=== PATIENT | female | born 1955 | race Caucasian/White ===

== ENCOUNTER 2021-01-19 08:32 | Inpatient (IN) | payer OTHER, MEDICAID, SELFPAY ==
[2021-01-19] VITALS (10 sets, daily range): BP systolic 78–134; BP diastolic 49–81
[~2021-01-19] VITALS: Ht 175.3 cm; Wt 64.4 kg
[~2021-01-19 08:32] MED LIST: AMLO10TA GT; ASCO500T95 GT; BISA-218 RC; CHOL500014 GT; CRAN500T GT; DOCU-299 GT; GLIM2TAB GT; METF500T GT; METF500T2 GT; MULT-1328 GT; OSC500 GT; SIMV20TA1 GT
--- NOTE | 2021-01-19 08:33 | NUR ---
PT BIBA TO BED 10
--- NOTE | 2021-01-19 08:35 | NUR ---
DR RIVERA AT BEDSIDE FOR EVALUATION
--- NOTE | 2021-01-19 08:39 | NUR ---
65 YO FEMALE BIBA FROM [facility] HOME FOR C/C OF DIARRHEA, VOMITING, HYPOTENSION AND 80% SAT ON ROOM AIR. PTS BASELINE IS GCS OF 9/ A/0 X0. PT ARRIVES TO ER ON 4L NC AT 96%. PT WAS COVID NEGATIVE ON 01/11/21. ON RA, 92%, 95% ON 4L N/C. WHEEZING AUSCULATED BILATERAL THROUGHOUT. NO EDEMA NOTED, <3 SECONDS CAP REFILL. PT HAS COUGH. HYPOACTIVE BOWEL SOUNDS IN ALL 4 QUARDRANTS. BLOOD SUGAR PER MEDIC 148. PT IS IN DIAPER. PT LAYING IN BED WITH EVEN AND UNLABORED RESPIRATIONS. BED IN LOWEST POSITION, BRAKES LOCKED, X1 SIDERAIL UP. MED HX: CEREBRAL PALSY, HTN, DM2, HYPERLIPIDEMIA NKA
[2021-01-19] MEDS ORDERED: VANCOMYCIN 1,000 MG in DEXTROSE 5% 250 ML IV ONE (08:50)
--- NOTE | 2021-01-19 09:07 | NUR ---
RAD AT BEDSIDE
[2021-01-19 09:19] LABS: HEMATOCRIT 36.4 % (36-48); HEMOGLOBIN 12.1 g/dL (12.0-16.0); MEAN CORPUSCULAR HEMOGLOBIN 28 pg (27-31); MEAN CORPUSCULAR HGB CONC 33 g/dL (33-37); MEAN CORPUSCULAR VOLUME 83.9 fL (80-94); PLATELET COUNT (AUTO) 155 K/uL (140-450); RED BLOOD CELL COUNT(AUTO) 4.34 MIL/uL (4.20-5.40); RED CELL DISTRIBUTION WIDTH 14.6 % (11.6-13.7); WHITE BLOOD COUNT (AUTO) 21.5 K/uL (4.8-10.8)
[2021-01-19 09:31] LABS: LYMPHOCYTES % (MANUAL) 4 % (20-46); MONOCYTES % (MANUAL) 6 % (5-12)
[2021-01-19] MEDS ORDERED: cefTRIAXone 1,000 MG VIAL ONE (09:31)
[2021-01-19 09:36] LABS: ALBUMIN 2.8 g/dL (3.4-5.0); ANION GAP 16.5 (8-16); CARBON DIOXIDE 22.5 mmol/L (21-32); CREATININE 1.3 mg/dL (0.6-1.3); TOTAL BILIRUBIN 0.5 mg/dL (0.0-1.0)
--- NOTE | 2021-01-19 09:39 | NUR ---
RT AT BEDSIDE FOR ABG
--- NOTE | 2021-01-19 09:39 | NUR ---
CENTRAL LINE PLACED BY ERMD, CONFIRMED PLACEMENT BY ERMD ULTRASOUND AT BEDSIDE.
[2021-01-19] MEDS ORDERED: ACETAMINOPHEN 650 MG SUPP RC ONE (09:40)
--- NOTE | 2021-01-19 09:42 | NUR ---
EMT AT BEDSIDE FOR EKG
[2021-01-19 09:45] LABS: PROTHROMBIN TIME 11.1 secs (10.8-13.4)
[2021-01-19] MEDS ORDERED: VANCOMYCIN 1,000 MG VIAL ONE (09:47)
[2021-01-19] MEDS ORDERED: INSU100S5 BC (10:04)
[2021-01-19] MEDS ORDERED: MEDI237S4 PO (10:04)
[2021-01-19] MEDS ORDERED: CALC-20 GT (10:04)
--- NOTE | 2021-01-19 10:07 | NUR ---
lactic acid 4.1--critical value received from lab. Dr Morgan made aware
[2021-01-19] MEDS ORDERED: NACL 0.9% 1,000 ML IV STA ×2 (10:08)
[2021-01-19 10:09] LABS: C-REACTIVE PROTEIN QUANT 26.8 mg/dL (0.0-0.9)
--- NOTE | 2021-01-19 10:35 | NUR ---
CT consent obtained and placed in pt chart.
--- NOTE | 2021-01-19 10:39 | NUR ---
RAD AT BEDSIDE
--- NOTE | 2021-01-19 10:44 | NUR ---
PT TAKEN TO CT VIA RAMEZ. RN WITH PT.
--- NOTE | 2021-01-19 11:06 | NUR ---
BACK FROM CT AND CONNECTED TO MONITORS AND PAPA
[2021-01-19] MEDS ORDERED: AZITHROMYCIN 500 MG in DEXTROSE 5% 250 ML IV ONE (11:15)
--- NOTE | 2021-01-19 11:23 | NUR ---
URINE SAMPLE COLLECTED VIA FORD. GIVEN TO JYOTHI FROM LAB
[2021-01-19] MEDS ORDERED: AZITHROMYCIN 500 MG INJ VIAL IV ONE (11:26)
[2021-01-19 11:44] LABS: APPEARANCE,URINE SL CLOUDY (CLEAR); BILIRUBIN,URINE NEGATIVE (NEGATIVE); BLOOD, URINE 3+ (NEGATIVE); COLOR,URINE YELLOW (YELLOW); LEUKOCYTE ESTERASE ,URINE 3+ (NEGATIVE); NITRITE, URINE NEGATIVE (NEGATIVE); UGLUCOSE NEGATIVE (NEGATIVE)
--- NOTE | 2021-01-19 11:57 | NUR ---
ep technologist at pt bedside.
[2021-01-19] MEDS ORDERED: NOREPINEPHRINE 4 MG/4 ML VIAL IV ONE (12:02)
[2021-01-19 12:04] LABS: RBC,URINE 11-20 (MOD) /HPF (0-5); WBC,URINE 20-60 /HPF (0-5)
[2021-01-19] MEDS ORDERED: NOREPINEPHRINE 4 MG in DEXTROSE 5% 250 ML IV ONE (12:05)
--- NOTE | 2021-01-19 12:11 | NUR ---
Gave report to EDI King, transfer of care at this time.
--- NOTE | 2021-01-19 12:33 | NUR ---
Patient will be admitted to care of Mariza Vaca. Admited to ICU. Will go to room 8. Belongings list completed. Report to EDI King.
--- NOTE | 2021-01-19 12:50 | NUR ---
RECEIVED PT FROM VP [employer] [place]. PT IS ALERT AND ORIENTED X 0. PT IS ON 4 L NC, BREATHING EVEN AND UNLABORED, SATURATING 94%. PT IS SR/ST ON THE MONITOR AT THIS TIME. PT HAS ACCESS AT R IJ CENTRAL LINE AND L H 22 G. LEVOPHED IS RUNNING AT 4 MCG/MIN. PT HAS G TUBE IN PLACE. FORD CATHETER IS IN PLACE DRAINING TO GRAVITY. SKIN IS INTACT, SACRAL REDNESS NOTED. OPTIFOAM DRESSING PUT INTO PLACE. TEMPERATURE 97.9 AXILLARY.
[2021-01-19] MEDS: DEXT 5% /NACL 0.9% 1,000 ML IV SCH (13:00)
--- NOTE | 2021-01-19 13:57 | NUR ---
DR. DORAN SEEING PT
--- NOTE | 2021-01-19 14:00 | NUR ---
SPOKE TO ANTONELLA MARCH AND UPDATED ON PT STATUS. PER ANTONELLA, OKAY TO GIVE INFO/CALL FOR INFO FROM HERSELF, KINGA LAGUERRE, AND GUERRERO CASTILLO IF NEEDED. NUMBERS ARE IN CHART. PER ANTONELLA, ALSO OKAY TO CALL KINGA OR ANTONELLA FOR CONSENT.
[2021-01-19] MEDS ORDERED: ONDANSETRON 4 MG/2 ML VIAL IVP PRN (14:05)
--- NOTE | 2021-01-19 16:50 | NUR ---
PT REPOSITIONED OFF LOADED WITH PILLOWS. SKIN WIPED DOWN. VSS NO SIGNS OF RESPIRATORY STRESS NOTED.
[2021-01-19] MEDS ORDERED: NUT TX GLUC INTOLER LAC FR SOY PO SCH (17:00)
[2021-01-19] MEDS ORDERED: NOREPINEPHRINE 4 MG in DEXTROSE 5% 250 ML IV PRN (18:55)
[2021-01-19] MEDS ORDERED: DEXTROSE 50% 50 ML SYR IVP PRN (18:55)
[2021-01-19] MEDS: ALBUTEROL 0.083% 2.5 MG/3 ML NEBU INH SCH (19:00)
[2021-01-19] MEDS: IPRATROPIUM 0.02% 0.5 MG/2.5 ML NEBU INH SCH (19:00)
--- NOTE | 2021-01-19 19:19 | NUR ---
HANDOFF GIVEN TO SUMATRA OPENER RN FOR CONTINUITY OF CARE
--- NOTE | 2021-01-19 19:30 | NUR ---
RECEIVED REPORT AT BEDSIDE FROM RN DAYSHIFT NURSE FOR CONTINUITY OF CARE, PT IN STABLE CONDITION.
--- NOTE | 2021-01-19 19:54 | NUR ---
PT IN BED HOB UP 35%. SHE IS AOX1, AROUSABLE TO NAME AND SHE IS APHASIAC.FLACC-O .SHE HAS A N/C WITH SUPPLEMENTAL 02 AT LITERS. PT HAS SOME SACRAL REDNESS WITH DRY DRESSING INTACT. SHE HAS A R IJ RUNNING LEVOPHED AT 4MCG/MIN. SHE IS ALSO RUNNING D5N/S AT 100MLS/HR. PT ALSO HAS LEFT HAND 22G SALINE LOCKED. V/S FOLLOWS: T 97.9 P 95 R 17 B/P 129/81 02 95%. ALL ORDERED PRECAUTIONS IN PLACE.
[2021-01-19] MEDS: SIMVASTATIN 20 MG TAB GT SCH (20:19)
[2021-01-19] MEDS: metFORMIN 500 MG TAB GT SCH (20:19)
[2021-01-19] MEDS: INSULIN LISPRO SLIDING SCALE 100 UNITS/ML VIAL SUBQ PRN (20:22)
[2021-01-19] MEDS: LORazepam 2 MG/ML VIAL IVP PRN (20:45)
[2021-01-19] MEDS: BLOOD GLUCOSE MONITORING 1 DEV DEV FS SCH (21:00)
[2021-01-19] MEDS ORDERED: NON-FORMULARY ITEM (Metformin HCl* (Glucophage Xr*) 500 MG) GT SCH (21:00)
--- NOTE | 2021-01-19 21:00 | NUR ---
PT SHAKING ARM BACK AND FORTH AND MOVING HEAD BACK AND FORTH, SHE WAS GIVEN IVP ATIVAN FOR AGITATION WILL MONITOR FOR EFFECT. PT ALSO GIVEN GLUCOPHAGE AND ZOCOR VIA G TUBE WHICH WAS FLUSHED PATENT. PT FINGERSTICK IS 228, 4 UNITS OF HUMALOG GIVEN SQ FOR COVERAGE PER S/S. LEVOPHED DECREASED DUE TO INCREASED B/P SBP WAS 147. WILL CONTINUE TO MONITOR PT FOR RELIEF OF AGITATION WELL B/P AND ALL OTHER V/S. PT ALSO HAS FORD CATHETER INTACT AND DRAINING YELLOW URINE. ALL ORDERED PRECAUTIONS IN PLACE.
--- NOTE | 2021-01-19 22:30 | NUR ---
PT IN BED RESTING QUIETLY WITH EYES CLOSED, V/S FOLLOWS: T 98 P 114 R 22 B/P 99/58 02 96% WITH 4.5 LITERS OF N/C. ALL ORDERED PRECAUTIONS IN PLACE.
[2021-01-19] MEDS ORDERED: VANCOMYCIN PER PHARMACY MC PRN (22:50)
[2021-01-19] MEDS ORDERED: VANCOMYCIN 1GM/DEXT 5% PREMIX 200 ML IV SCH (23:00)
--- NOTE | 2021-01-19 23:00 | NUR ---
VANCOMYCIN RECONSTITUTED AND HUNG RUNNING AT 135MLS/HR. WILL MONITOR FOR SIDE EFFECTS.
[2021-01-20] VITALS (23 sets, daily range): BP systolic 98–147; BP diastolic 53–87
[2021-01-20] MEDS: DEXT 5% /NACL 0.9% 1,000 ML IV SCH ×2 (00:08→10:05)
[2021-01-20] MEDS ORDERED: VANCOMYCIN 1,000 MG VIAL ONE (00:17)
[2021-01-20] MEDS ORDERED: PIPERACILLIN/TAZOBACTAM 3.375 GM VIAL IV ONE ×2 (00:18→06:22)
[2021-01-20] MEDS: PIPERACILLIN/TAZOBACTAM 3.375 GM in DEXTROSE 5% 50 ML IV SCH ×5 (00:25→23:14)
--- NOTE | 2021-01-20 00:30 | NUR ---
HAMMAD HUNG AND RUNNING ORDERED. V/S FOLLOWS: T 97.6 P 104 R 21 B/P 104/61 02 93% WITH 4.5 LITER VIA N/C. ALL ORDERED PRECAUTIONS IN PLACE.
--- NOTE | 2021-01-20 01:00 | NUR ---
RT FOR NEB TREATMENT PT PLACED ON 15 LITERS NON REBREATHER.
[2021-01-20] MEDS: IPRATROPIUM 0.02% 0.5 MG/2.5 ML NEBU INH SCH ×4 (01:13→19:00)
[2021-01-20] MEDS: ALBUTEROL 0.083% 2.5 MG/3 ML NEBU INH SCH ×4 (01:14→19:00)
--- NOTE | 2021-01-20 01:25 | NUR ---
RECEIVED PT ON N/C 4L, SPO2 91%. CHANGED TO NONREBREATHER 15L DUE TO DESATURATION.
[2021-01-20] MEDS: LORazepam 2 MG/ML VIAL IVP PRN ×2 (01:47→13:00)
--- NOTE | 2021-01-20 01:52 | NUR ---
PT STARTED TO BECOME AGITATED AGAIN, SHE WAS GIVEN IVP /PRN ATIVAN. WILL MONITOR FOR EFFECT.
--- NOTE | 2021-01-20 04:00 | NUR ---
PT WAS TURNED AND REPOSITIONED IN BED. D5N/S RUNNING AT 100MLS/HR .
--- NOTE | 2021-01-20 05:00 | NUR ---
CRITICAL LAB GRAM POSITIVE RODS IN THE BLOOD. PT IS ON 3 IV ABTS. AWAITING SENSITIVITY
--- NOTE | 2021-01-20 06:00 | NUR ---
HAMMAD HUNG AND RUNNING ORDERED. FINGERSTICK IS 138, NO HUMALOG COVERAGE NEEDED.
[2021-01-20] MEDS: BLOOD GLUCOSE MONITORING 1 DEV DEV FS SCH ×4 (06:24→20:05)
--- NOTE | 2021-01-20 08:03 | NUR ---
PATIENT HAS BEEN SCREENED AND CATEGORIZED HIGH NUTRITION RISK. PATIENT WILL BE SEEN WITHIN 1-2 DAYS OF ADMISSION. 01/20/2021-01/21/[address]
[2021-01-20 08:50] LABS: ANION GAP 15.1 (8-16); CARBON DIOXIDE 18.2 mmol/L (21-32); CREATININE 1.3 mg/dL (0.6-1.3); POTASSIUM 4.3 mmol/L (3.5-5.1)
[2021-01-20] MEDS ORDERED: NON-FORMULARY ITEM (Cholecalciferol (Vitamin D3) (Vitamin D3) 5,000 U) GT SCH (09:00)
[2021-01-20] MEDS ORDERED: NON-FORMULARY ITEM (Multivitamin with Minerals (Multivitamins with Minerals) 1 TAB) GT SCH (09:00)
[2021-01-20] MEDS ORDERED: CRANBERRY FRUIT EXTRACT 500 MG GT SCH (09:00)
[2021-01-20] MEDS ORDERED: AZITHROMYCIN 500 MG in DEXTROSE 5% 250 ML IV SCH (09:00)
[2021-01-20] MEDS: GLIMEPIRIDE 2 MG TAB GT SCH (09:17)
[2021-01-20] MEDS: metFORMIN 500 MG TAB GT SCH ×2 (09:18→20:05)
[2021-01-20] MEDS: MULTIVITAMIN/MINERALS 1 TAB GT SCH (09:19)
[2021-01-20] MEDS: ASCORBIC ACID 500 MG/5 ML ORASYR GT SCH (09:19)
[2021-01-20] MEDS: CALCIUM CARB/VIT-D 500 MG/200 IU 1 TAB GT SCH (09:19)
--- NOTE | 2021-01-20 09:45 | NUR ---
SEEN BY ANDREEA CREWS AT BEDSIDE, CLAUDIA ANTUNEZ FOR ARCH CUSHION SKIVING MACHINE OPERATOR.
--- NOTE | 2021-01-20 10:35 | NUR ---
SEEN BY DR. ANTUNEZ AT BED SIDE , ORDER RECEIVED.
[2021-01-20 11:02] LABS: BASOPHILS % (AUTO) 0.3 % (0.0-2.0); EOSINOPHILS # (AUTO) 0.2 K/uL (0-0.4); HEMATOCRIT 31.4 % (36-48); HEMOGLOBIN 10.2 g/dL (12.0-16.0); LYMPHOCYTES # (AUTO) 0.4 K/uL (2.5-16.5); LYMPHOCYTES % (AUTO) 4.8 % (20.5-51.1); MEAN CORPUSCULAR HEMOGLOBIN 28 pg (27-31); MEAN CORPUSCULAR HGB CONC 33 g/dL (33-37); MEAN CORPUSCULAR VOLUME 84.6 fL (80-94); MONOCYTES # (AUTO) 0.2 K/uL (0.8-1.0); MONOCYTES % (AUTO) 2.6 % (1.7-9.3); NEUTROPHILS # (AUTO) 7.1 K/uL (1.8-7.7); NEUTROPHILS % (AUTO) 89.3 % (42.2-75.2); PLATELET COUNT (AUTO) 107 K/uL (140-450); RED BLOOD CELL COUNT(AUTO) 3.71 MIL/uL (4.20-5.40); RED CELL DISTRIBUTION WIDTH 14.5 % (11.6-13.7); WHITE BLOOD COUNT (AUTO) 7.9 K/uL (4.8-10.8)
[2021-01-20] MEDS: CHOLECALCIFEROL 1,000 IU TAB GT SCH (11:45)
[2021-01-20] MEDS: INSULIN LISPRO SLIDING SCALE 100 UNITS/ML VIAL SUBQ PRN ×2 (11:49→20:06)
--- NOTE | 2021-01-20 11:50 | NUR ---
VITAMIN D ADMIN NOW//PHARM RESTOCKED RIGHT NOW
--- NOTE | 2021-01-20 13:00 | NUR ---
PATIENT TOSSING AROUND IN BED, ATIVAN IVP GIVEN AT THIS TIME. WILL CONTINUE TO MONITOR.
--- NOTE | 2021-01-20 13:59 | NUR ---
01/20/21 RD INITIAL ASSESSMENT COMPLETED PLEASE REFER TO NUTRITION ASSESSMENT UNDER CARE ACTIVITY FOR ESTIMATED NUTRITIONAL NEEDS. RD RECOMMENDATIONS: 1. RECOMMEND VITAL AF 1.2 AT 60 ML/HR. -THIS PROVIDES 1440 ML TOTAL VOLUME 1728 KCAL AND 108 GM OF PROTEIN , WHICH IS ADEQUATE TO MEET 100% OF ESTIMATED KCAL AND PROTEIN NEEDS. 2. CONSIDER FREE WATER FLUSH OF 100 ML Q4H OR PER MD. 3. RD WILL F/U 2-3 DAYS; HIGH RISK. EDMUND THOMAS, RD
--- NOTE | 2021-01-20 14:00 | NUR ---
TURNED PATIENT. TOLERATED WELL. NO DISTRESS NOTED. CONDITION UNCHANGED. WILL CONTINUE TO MONITOR.
--- NOTE | 2021-01-20 16:13 | NUR ---
TURNED PATIENT. NO BM THROUGHOUT SHIFT. WILL CONTINUE TO MONITOR.
--- NOTE | 2021-01-20 17:29 | NUR ---
SCHEDULED MEDICATIONS DUE GIVEN. WILL CONTINUE TO MONITOR.
[2021-01-20] MEDS: VANCOMYCIN 750 MG in DEXTROSE 5% 250 ML IV SCH (18:00)
--- NOTE | 2021-01-20 18:32 | NUR ---
VANCO RANDOM 21.6. VANCO IV SCHEDULED FOR 1800 HELD AT THIS TIME PER PHARMACY PARAMETERS. WILL CONTINUE TO MONITOR.
--- NOTE | 2021-01-20 19:15 | NUR ---
GAVE REPORT TO FORM STRIPPER NURSE FOR CONTINUITY OF CARE. PATIENT REMAINS IN CRITICAL CONDITION.
--- NOTE | 2021-01-20 19:25 | NUR ---
RECIEVED BEDSIDE REPORT FROM DAY SHIFT RN, PT RESTING IN BED LYING SUPINE W/ HOB 30 DEGREES AND BED LOW, ST ON MONITOR, PT ON NRB 15 L/MIN, AFEBRILE, FC IN PLACE DRAINING VIA GRAVITY, GTUBE TO FEEDING ONGOING, ABD SOFT AND NON TENDER, SKIN INTACT WITH SACRAL REDNESS, RIJ TL INFUSING D5 NS, PT SHOWING NO SIGNS OF ACUTE DISTRESS SAFETY MEASURES IN PLACE, WILL CONTINUE WITH CURRENT POC
[2021-01-20] MEDS ORDERED: CRUSHER, PILL MC ONE (20:01)
[2021-01-20] MEDS: SIMVASTATIN 20 MG TAB GT SCH (20:04)
--- NOTE | 2021-01-20 21:10 | NUR ---
ADMINISTERED 2100 MEDICATIONS PER ORDERED, BLOOD GLUCOSE 157, ADMINISTERED 2 UNITS HUMALOG PER PROTOCOL
--- NOTE | 2021-01-20 23:47 | NUR ---
ADMINISTERED 0000H MEDICATION PER ORDERED, PT RESTING IN BED, NO SIGNS OF ACUTE DISTRESS
[2021-01-21] VITALS (28 sets, daily range): BP systolic 99–164; BP diastolic 42–78
[2021-01-21] MEDS: ALBUTEROL 0.083% 2.5 MG/3 ML NEBU INH SCH ×4 (01:00→19:30)
[2021-01-21] MEDS: IPRATROPIUM 0.02% 0.5 MG/2.5 ML NEBU INH SCH ×4 (01:00→19:30)
[2021-01-21] MEDS: PIPERACILLIN/TAZOBACTAM 3.375 GM in DEXTROSE 5% 50 ML IV SCH ×4 (05:17→23:01)
[2021-01-21 05:21] LABS: ANION GAP 15.9 (8-16); CARBON DIOXIDE 23.6 mmol/L (21-32); CREATININE 1.5 mg/dL (0.6-1.3); POTASSIUM 3.5 mmol/L (3.5-5.1)
[2021-01-21 05:31] LABS: HEMOGLOBIN 11.3 g/dL (12.0-16.0); MEAN CORPUSCULAR HEMOGLOBIN 28 pg (27-31); MEAN CORPUSCULAR HGB CONC 32 g/dL (33-37); MEAN CORPUSCULAR VOLUME 85.7 fL (80-94); PLATELET COUNT (AUTO) 101 K/uL (140-450); RED BLOOD CELL COUNT(AUTO) 4.09 MIL/uL (4.20-5.40); RED CELL DISTRIBUTION WIDTH 14.4 % (11.6-13.7); WHITE BLOOD COUNT (AUTO) 7.3 K/uL (4.8-10.8)
[2021-01-21] MEDS: DEXT 5% /NACL 0.9% 1,000 ML IV SCH (05:45)
[2021-01-21 06:19] LABS: BASOPHILS % (MANUAL) 0 % (0-2); EOSINOPHILS % (MANUAL) 0 % (0-4); LYMPHOCYTES % (MANUAL) 3 % (20-46)
[2021-01-21 06:21] LABS: MONOCYTES % (MANUAL) 6 % (5-12)
[2021-01-21] MEDS: BLOOD GLUCOSE MONITORING 1 DEV DEV FS SCH ×4 (06:31→21:01)
[2021-01-21] MEDS: INSULIN LISPRO SLIDING SCALE 100 UNITS/ML VIAL SUBQ PRN ×4 (06:31→21:01)
--- NOTE | 2021-01-21 07:20 | NUR ---
ENDORSED TO DAY SHIFT RN FOR CONTINUITY OF CARE
--- NOTE | 2021-01-21 07:21 | NUR ---
RECEIVED REPORT FROM HAND FRETTED INSTRUMENT MAKER NURSE PATIENT. PATIENT IN CRITICAL CONDITION. WILL CONTINUE TO MONITOR.
--- NOTE | 2021-01-21 08:11 | NUR ---
PT PLACED ON A VAPOTHERM 40L 100% USING A HF NASAL CANULA WITH A COMBINATION OF A NON-REBREATHER ON TOP OF THE NASAL CANULA FOR MAXIMUM OXYGEN DELIVERY. IF PT CONTINUES TO DESATURATE I WILL FOLLOW WITH PHYSICIAN FOR FURTHER ORDERS.
[2021-01-21] MEDS: CALCIUM CARB/VIT-D 500 MG/200 IU 1 TAB GT SCH (09:05)
[2021-01-21] MEDS: metFORMIN 500 MG TAB GT SCH (09:05)
[2021-01-21] MEDS: ASCORBIC ACID 500 MG/5 ML ORASYR GT SCH (09:05)
[2021-01-21] MEDS: CHOLECALCIFEROL 1,000 IU TAB GT SCH (09:05)
[2021-01-21] MEDS: MULTIVITAMIN/MINERALS 1 TAB GT SCH (09:05)
[2021-01-21] MEDS: GLIMEPIRIDE 2 MG TAB GT SCH (09:07)
[2021-01-21] MEDS ORDERED: CLINICAL MONITORING MC PRN (09:35)
--- NOTE | 2021-01-21 10:25 | NUR ---
DR. ANTUNEZ AT BEDSIDE REVIEWING PLAN OF CARE. PER DR. ANTUNEZ, PLACE PATIENT ON BIPAP DUE TO O2 SAT AROUND 84-86% ON NRB 15L/MIN AND HIGH FLOW 100 % FIO2. WILL CONTINUE TO MONITOR.
--- NOTE | 2021-01-21 11:30 | NUR ---
SCHEDULED MEDICATIONS DUE GIVEN. WILL CONTINUE TO MONITOR.
[2021-01-21] MEDS: LORazepam 2 MG/ML VIAL IVP PRN ×2 (11:57→16:07)
[2021-01-21] MEDS: VANCOMYCIN 750 MG in DEXTROSE 5% 250 ML IV SCH (12:00)
--- NOTE | 2021-01-21 12:03 | NUR ---
SCHEDULED MEDICATIONS DUE GIVEN. WILL CONTINUE TO MONITOR.
--- NOTE | 2021-01-21 13:09 | NUR ---
SCHEDULED MEDICATIONS DUE GIVEN. WILL CONTINUE TO MONITOR.
--- NOTE | 2021-01-21 15:30 | NUR ---
CLEANED AND REPOSITIONED PATIENT. PATIENT TOLERATED WELL. WILL CONTINUE TO MONITOR.
[2021-01-21] MEDS: NACL 0.9% 1,000 ML IV SCH (16:22)
--- NOTE | 2021-01-21 17:23 | NUR ---
SCHEDULED MEDICATIONS DUE GIVEN. WILL CONTINUE TO MONITOR.
--- NOTE | 2021-01-21 19:10 | NUR ---
GAVE REPORT TO GAMBRELER NURSE FOR CONTINUITY OF CARE. PATIENT REMAINS IN CRITICAL CONDITION.
--- NOTE | 2021-01-21 19:25 | NUR ---
RECIEVED BEDSIDE REPORT FROM DAY SHIFT RN, PT RESTING IN BED LYING SUPINE W/ HOB 30 DEGREES AND BED LOW, SR ON MONITOR, PT ON BIPAP FIO2 100%, AFEBRILE, FC IN PLACE DRAINING VIA GRAVITY, GTUBE TO FEEDING ONGOING, ABD SOFT AND NON TENDER, SKIN INTACT WITH SACRAL REDNESS, RIJ TL INFUSING NS, PT SHOWING NO SIGNS OF ACUTE DISTRESS SAFETY MEASURES IN PLACE, WILL CONTINUE WITH CURRENT POC
[2021-01-21] MEDS: SIMVASTATIN 20 MG TAB GT SCH (21:01)
--- NOTE | 2021-01-21 21:30 | NUR ---
ADMINISTERED 2100H MEDICATIONS PER ORDERED, BLOOD GLUCOSE 167, ADMINISTERED 2 UNITS HUMALOG PER PROTOCOL
--- NOTE | 2021-01-21 23:29 | NUR ---
ADMINISTERED 0000H MEDICATION PER ORDERED, REPOSITIONED PT, SHOWING NO SIGNS OF ACUTE DISTRESS
[2021-01-22] VITALS (30 sets, daily range): BP systolic 89–176; BP diastolic 45–79
[2021-01-22] MEDS: IPRATROPIUM 0.02% 0.5 MG/2.5 ML NEBU INH SCH ×4 (01:19→19:00)
[2021-01-22] MEDS: ALBUTEROL 0.083% 2.5 MG/3 ML NEBU INH SCH ×4 (01:19→19:00)
--- NOTE | 2021-01-22 02:15 | NUR ---
AM CARE GIVEN, REPOSTIONED PT, PT SHOWING NO SIGNS OF ACUTE DISTRESS
[2021-01-22] MEDS: PIPERACILLIN/TAZOBACTAM 3.375 GM in DEXTROSE 5% 50 ML IV SCH ×4 (05:09→23:31)
--- NOTE | 2021-01-22 05:47 | NUR ---
ADMINISTERED 0600H MEDICATION PER ORDERED
[2021-01-22 06:09] LABS: EOSINOPHILS % (AUTO) 0.4 % (0.0-4.0); HEMATOCRIT 31.6 % (36-48); HEMOGLOBIN 10.3 g/dL (12.0-16.0); LYMPHOCYTES # (AUTO) 0.3 K/uL (2.5-16.5); LYMPHOCYTES % (AUTO) 3.6 % (20.5-51.1); MEAN CORPUSCULAR HEMOGLOBIN 28 pg (27-31); MEAN CORPUSCULAR HGB CONC 33 g/dL (33-37); MEAN CORPUSCULAR VOLUME 84.2 fL (80-94); MONOCYTES # (AUTO) 0.1 K/uL (0.8-1.0); MONOCYTES % (AUTO) 1.5 % (1.7-9.3); NEUTROPHILS # (AUTO) 8.8 K/uL (1.8-7.7); NEUTROPHILS % (AUTO) 94.5 % (42.2-75.2); PLATELET COUNT (AUTO) 96 K/uL (140-450); RED BLOOD CELL COUNT(AUTO) 3.75 MIL/uL (4.20-5.40); RED CELL DISTRIBUTION WIDTH 14.6 % (11.6-13.7); WHITE BLOOD COUNT (AUTO) 9.4 K/uL (4.8-10.8)
[2021-01-22 06:24] LABS: ALBUMIN 1.8 g/dL (3.4-5.0); ANION GAP 15.2 (8-16); CARBON DIOXIDE 24.7 mmol/L (21-32); CREATININE 1.6 mg/dL (0.6-1.3); MAGNESIUM 1.9 mg/dL (1.8-2.4); PHOSPHORUS 1.3 mg/dL (2.5-4.9); TOTAL BILIRUBIN 0.3 mg/dL (0.0-1.0)
[2021-01-22] MEDS: INSULIN LISPRO SLIDING SCALE 100 UNITS/ML VIAL SUBQ PRN ×4 (06:30→21:41)
[2021-01-22] MEDS: BLOOD GLUCOSE MONITORING 1 DEV DEV FS SCH ×4 (06:30→21:37)
--- NOTE | 2021-01-22 06:33 | NUR ---
BLOOD GLUCOSE 172, ADMINISTERED 2 UNITS HUMALOG PER PROTOCOL
[2021-01-22] MEDS: NACL 0.9% 1,000 ML IV SCH (06:36)
[2021-01-22 06:42] LABS: POTASSIUM 2.9 mmol/L (3.5-5.1)
--- NOTE | 2021-01-22 07:07 | NUR ---
ENDORSED T DAY SHIFT RN FOR CONTINUITY OF CARE
[2021-01-22] MEDS ORDERED: POTASSIUM CHLORIDE 10 MEQ TABER PO SCH (07:10)
[2021-01-22] MEDS: NACL 0.45% 1,000 ML IV SCH ×2 (07:10→21:01)
--- NOTE | 2021-01-22 08:08 | NUR ---
UPON INITIAL ASSESSMENT PT IS SUPINE IN BED WITH NO SIGNS OF ACUTE DISTRESS. PT INITIALLY ON 60% FIO2 ON BIPAP, TITRATED DOWN TO 50%. PT IN SINUS RHYTHM IN 80S AND MAPS IN 80S. PT IS WARM TO TOUCH, PULSES REGULAR AND STRONG. PT NOT FOLLOWING COMMANDS AND LETHARGIC ASIDE FROM FROM BASELINE INTELLECTUAL DELAY. MD ROUNDING AT BEDSIDE THIS AM REQUESTING PT TO HAVE TUBE FEEDS HELD 8 HOURS PRIOR TO RENAL STENT PLACEMENT FOR BILATERAL KIDNEY STONES, OTHERWISE NO NEW ORDERS. PLAN TO CONTINUE CURRENT PLAN OF CARE. WILL CONTINUE TO MONITOR AND ASSESS PATIENT.
[2021-01-22] MEDS: ASCORBIC ACID 500 MG/5 ML ORASYR GT SCH (08:21)
[2021-01-22] MEDS: MULTIVITAMIN/MINERALS 1 TAB GT SCH (08:21)
[2021-01-22] MEDS: CALCIUM CARB/VIT-D 500 MG/200 IU 1 TAB GT SCH (08:21)
[2021-01-22] MEDS: CHOLECALCIFEROL 1,000 IU TAB GT SCH (08:22)
[2021-01-22] MEDS: GLIMEPIRIDE 2 MG TAB GT SCH (08:25)
[2021-01-22] MEDS ORDERED: POTASSIUM CHLORIDE 20% 40 MEQ/15 ML UDC ONE (08:29)
[2021-01-22] MEDS: LORazepam 2 MG/ML VIAL IVP PRN ×2 (08:46→18:45)
[2021-01-22] MEDS ORDERED: PROPOFOL 1000 MG/100 ML PREMIX 100 ML IV ONE (09:43)
[2021-01-22] MEDS ORDERED: PROPOFOL 1000 MG/100 ML PREMIX 100 ML IV PRN (09:50)
--- NOTE | 2021-01-22 10:00 | NUR ---
MD NOTIFIED OF PT'S WORK OF BREATHING AT 0915. PT SATURATING IN MID 90S, BUT BREATHING IN 50S. AFTER PRN ATIVAN ADMINISTERED, ABG DRAWN. MD ARRIVED AT BEDSIDE AND NOTED THAT ALTHOUGH ABG WAS STABLE WHEN RESULTED, PT'S WORK OF BREATHING WAS CONCERNING. PT INTUBATED WITH SIZE 7.5 ET TUBE WITHOUT COMPLICATIONS. DURING PROCEDURE, TOTAL OF 20 OF ETOMIDATE AND 30 OF ROCURONIUM GIVEN. PROPOFOL STARTED AT 30 MCG/KG/MIN PER MD. PT APPEARS COMFORTABLE WITH A RASS OF -2 AND SATTING IN MID 90S ON 60% FIO2. BILATERAL LUNG SOUNDS PRESENT POST INTUBATION. WILL CONTINUE TO MONITOR AND ASSESS PATIENT.
[2021-01-22] MEDS: PROPOFOL 1000 MG/100 ML PREMIX 100 ML IV PRN ×5 (11:23→18:11)
--- NOTE | 2021-01-22 11:31 | NUR ---
DC PLANN[age] YRS OLD FEMALE PATEINT WAS ADMITTED FROM [facility], WITH A DX OF SEPSIS AND RESP FAILURE. PT HAS A HX OF CEREBRAL PALSY, MENTALLY CHALLENGE G-TUBE AND DM. PT'S SISTER QUEENIE MULTANI IS A DECISION MAKER. PT IS ON BIPAP FI02 60% SATING 91%. CONSULTED WITH KIRILL, BROOKS, AND UROLOGIST. DC PLAN PER PT RESPOND FOR THE TREATMENT. CM TO FOLLOW. Addendum: 01/29/21 at 1157 by Jenniffer Fernandez RN DC PLANNING: SEEN BY KIRILL, BROOKS, NEPHRO, AND UROLOGIST. PT IS STILL INTUBATED ,NOT RESPONDING, CPAP TRIAL TODAY CM TO FOLLOW Addendum: 01/30/21 at 1346 by Jenniffer Fernandez RN DC PLANNING: PT HAS LTAC ORDER CALLED FAMILY PT'S SISTER [phone] SPOKE WITH QUEENIE MULTANI EXPLAINED THE NEEDS FOR LTAC. PER QUEENIE AGREED AND EITHER [facility] [place] OR [facility] WILL BE OK . I INFORMED HER CHARO FROM [facility] WILL CALL HER FOR PERMISSION. [facility] TO FOLLOW Addendum: 02/01/21 at 1052 by Lorraine Forrest CM DC WATER QUALITY ASSISTANT: SPOKE TO KINGA LAGUERRE [phone] FROM [facility] SHE IS ABLE TO PROVIDE TRANSPORTATION FOR PATIENT EVEN OF PATIENT DISCHARGES OVER THE WEEKEND. SHE ASKS THAT WE GIVE HER A HEADS UP ABOUT 6 HOURS BEFORE DISCHARGE SO SHE COULD FIND AND ARRANGE TRANSPORTATION. THEY CAN NOT TAKE PATIENT BACK ON ANY IV ABX Addendum: 02/02/21 at 1414 by Jenniffer Fernandez RN DC PLANNING: DR ROSE CANCELED URETEROSCOPY DUE TO ELECTROLYTE ABNORMALITIES. NOTIFIED ELE BRAUN AT [facility]. CM TO FOLLOW Addendum: 02/06/21 at 1100 by Jenniffer Fernandez RN DC PLANNING: UROLOGIST SCHEDULED FOR CYSTOSCOPY WITH [facility] LITHOTRIP[facility] TODAY AT 5PM . DC PLAN TO GO BACK TO [facility] WHEN STABLE . CALLED [facility] SPOKE WITH KINGA FRANCISCO ONCE PT IS READY FO DC THEY WILL ARRANGE TRANSPORT. CM TO FOLLOW Addendum: 02/07/21 at 1052 by Jeninffer Fernandez RN DC PLANNING: CALLED DR ROSE'S OFFICE LEFT A MESSAGE REGARDING PT'S DISCHARGE PLANNING .CM TO FOLLOW Addendum: 02/08/21 at 1111 by Lorraine Forrest CM DC WATER QUALITY ASSISTANT: SPOKE TO KADE MARLOW AT [facility] [phone] ABOUT DISCHARGE PLANS TO SNF FOR IV ABX. ELE ASKED THAT I FAX THE PATIENTS PACKET TO DEIDRE GATES, AND NEFTALI DEGROOT. FAXED TO BOTH WILL FOLLOW UP. Addendum: 02/08/21 at 1154 by Lorraine Forrest CM DC WATER QUALITY ASSISTANT: SPOKE TO KINGA AT [facility] TO UPDATE HER ON DC PLANS FOR PATIENT. ONCE WE HAVE AN ACCEPTING SNF I WILL LET HER KNOW SO SHE CAN ARRANGE FOR PATIENTS TO RETURN TO [facility] AFTER PATIENT FINISHES IV ABX Addendum: 02/08/21 at 1213 by Lorraine Forrest CM SHANTI WATER QUALITY ASSISTANT: EDMAR BRAUN ELE PATIENT HAS BEEN ACCEPTED AT [facility]. ROOM [address] UNDER DR[address] THOMAS. AUTH FOR TRANSPORTATION [id number]. Addendum: 02/08/21 at 1218 by Lorraine Forrest CM [address] [address] NUMBER FOR REPORT:[phone] ROOM [facility]- [facility] MORALES: DR. THOMAS Addendum: 02/08/21 at 1221 by Lorraine Forrest CM SHANTI GOODWIN: ARRANGED TRANSPORTATION WITH [facility] [phone] ETA IS BETWEEN 2:00 PM-3:00 PM Addendum: 02/08/21 at 1223 by Lorraine Forrest CM SHANTI GOODWIN: NOTIFIED EDI FRANCIS AND KINGA FROM [facility]
--- NOTE | 2021-01-22 11:37 | NUR ---
SOCIAL WORK NOTE: Patient's Orientation Unable To Assess Information Provided By KINGA Cunningham RN OF [facility] Comments SW WAS UNABLE TO MEET PATIENT AT BEDSIDE. SW COMPLETED ASSESSMENT WITH PATIENT'S [facility] STAFF. Community Health Advisor, Realtionship and Phone Number KINGA LAGUERRE RN [phone] QUEENIE MULTANI SISTER [phone] Healthcare Power of Authorization Specialist No Does Patient Have a POLST No Identifying Problems No Social Work Triggers Is A Social Work Consult Needed Yes Mandate Report Filed Yes Explanation Of Identifying Problems PATIENT IS A 65-YEAR-OLD FEMLAE ADMITTED FOR SEPSIS AND RESPIRATORY FAILURE. PATIENT HAS PMHX OF CEREBRAL PALSY, INTELLECTUAL DISABILITY, AND DIABETES. PATIENT WAS ADMITTED FROM [facility]. PATIENT HAS NO CONSERVATOR, BUT PATIENT HAS FAMILY INVOLVED. Admitted From Home Pre-Admission Level Of Functioning Status Total Care Level Of Functioning Comment PER KINGA, PATIENT REQUIRES TOTAL ASSISTANCE WITH ADLS. Prior Resources/Services Used In Last 12 Months [facility] Prior Resources/Service Comments SHARAN [facility]IRS[facility] - [phone] Prior DME Wheelchair Dialysis Comments N/A Other Living Situation/Comment RESIDENT OF [facility]. Patient Had Caregiver No Home Support No Caregiver Issues Financial Issues No Known Financial Issue Referral To The Financial Counselor Needed No Factors/Needs No D/C Needs Identified Explanation And Or Other Factors Affecting/Possible DC Needs PATIENT IS UNABLE TO RETURN UNLESS PATIENT IS COVID NEGATIVE. Pt/Rep Participated In Discharge Plan Yes Patient/Family Agress With Discharge Plan Yes Discharge Plan Comments TENTATIVE DISCHARGE PLAN IS FOR PATIENT TO RETURN HOME. DC Plan Status Initiated Addendum: 01/26/21 at 1352 by Zhang MORALES OTTO CONTACTED SHARAN HIRSCH WHO STATED THAT TABATHA BLANDON [phone] IS NOW [facility] WORKER FOR PATIENT. OTTO LEFT TO PROVIDE UPDATE. OTTO WILL FOLLOW UP.
--- NOTE | 2021-01-22 17:53 | NUR ---
RECEIVED CRITICAL LAB FOR BLOOD CULTURE POSITIVE FOR PROTEUS MIRABILIS, DR CHRISSY ADAM, AWAITING FOR CALL BACK.
--- NOTE | 2021-01-22 17:55 | NUR ---
RECEIVED CALL BACK FROM DR LOWE, AND MADE AWARE OF POSITIVE BLOOD CULTURE FOR PROTEUS MIRABILIS, AND SPECIMEN WAS VENOUS DRAW. DR LOWE WAS AWARE AND SAID HE WILL LOOK INTO IT. NO ORDER RECEIVED AT THIS TIME.
--- NOTE | 2021-01-22 18:07 | NUR ---
AT 1751 NOTIFIED MD OF BLOOD CULTURE RESULT POSITIVE FOR PROTEUS MIRABILIS. MD STATED THAT HE WOULD ASSESS PATIENT AT BEDSIDE. WILL CONTINUE TO MONITOR AND ASSESS PATIENT.
--- NOTE | 2021-01-22 18:08 | NUR ---
AT 1800 PT BECAME BRADYCARDIC IN MID 40S. TURNED OFF PROPOFOL AND WITHIN 5 MINUTES HR INCREASED TO LOW 80S. PT APPEARS CALM, BUT OCCASIONALLY BITES ET TUBE. WILL REQUEST ALTERNATIVE SEDATION IF AGITATION INCREASES WITH SEDATION OFF.
--- NOTE | 2021-01-22 18:42 | NUR ---
PAGED DR ANDERSON AT 1835 REQUESTING ALTERNATIVE SEDATION INSTEAD OF PROPOFOL DUE TO BRADYCARDIA. REQUESTING VERSED GTT. PLACED VERBAL ORDER. ATIVAN ADMINISTERED PER JAN WHILE WAITING FOR VERSED GTT.
[2021-01-22] MEDS: MIDAZOLAM MDV 100 MG in NACL 0.9% 80 ML IV PRN (19:05)
--- NOTE | 2021-01-22 19:30 | NUR ---
RECE[facility] PATIENT ETT TO VENT, RASS -3, HOB 30 DEGREES, VENT SETTINGS AC/PRVC, FIO2 40%, RR 20, TV 450, PEEP 6. PATIENT TOLERATING VENT SETTINGS WELL, SATURATION 98%. PATIENT HAS A PEG TUBE IN THE LEFT UPPER ABDOMINAL QUADRANT INTACT, PATENT, FLUSHING WELL AND SECURED. PATIENT TUBE FEEDING ORDER VITAL AF 60 ML GOAL, FWF 50 Q8. TUBE FEEDING AT HELD AT THIS TIME DUE TO HIGH RESIDUALS OF 500 ML. NPO CONSIDERATIONS AT MIDNIGHT DUE TO SURGERY 0700 ON 01/23/2021. PATIENT CONNECTED TO CONTINUOUS STAINLESS STEEL FINISHER 75 BPM AND RR 28, NO SIGNS OF DISTRESS. IV ACCESS SITES INCLUDE RIGHT IJ TRIPLE LUMEN AND LEFT WRIST 22G PERIPHERAL IV. IV DRIPS CURRENTLY RUNNING INCLUDE PROPOFOL AT 10 MCG/KG/MIN, IVF AT 75 ML/HR, AND VERSED 2 MG/HR. PATIENT WEIGHT IS CURRENTLY 68 KG. PATIENT HAS A FORD CATHETER INTACT, PATENT, DRAINING WELL AND SECURED. PATIENT IS BEING OFFLOADED FROM PRESSURE POINTS WITH USE OF PILLOWS AND FREQUENT REPOSITIONING. BED LOCKED AND LOWERED INTO A POSITION OF SAFETY WITH THE PATIENT IN A POSITION OF COMFORT. WILL CONTINUE TO CLOSELY MONITOR AND FREQUENTLY ROUND THROUGHOUT THE SHIFT.
--- NOTE | 2021-01-22 20:00 | NUR ---
VAP ORAL CARE PROVIDED, HYGIENE, REPOSITIONING, ET/ORAL SUCTIONING AND SAFETY CHECKS PROVIDED. MONITOR SHOWS HR 74 BPM AND RR 30, NO SIGNS OF DISTRESS. TOLERATING CURRENT THERAPIES WELL, WILL CONTINUE TO CLOSELY MONITOR AND FREQUENTLY ROUND.
[2021-01-22] MEDS: SIMVASTATIN 20 MG TAB GT SCH (21:11)
--- NOTE | 2021-01-22 22:00 | NUR ---
PATIENT RESTING IN A POSITION OF COMFORT, HOB 30 DEGREES, RASS -3. MONITOR SHOWS 70 BPM, RR 31, NO SIGNS OF DISTRESS. WILL CONTINUE TO CLOSELY MONITOR AND FREQUENTLY ROUND.
[2021-01-23] VITALS (30 sets, daily range): BP systolic 86–152; BP diastolic 50–80
--- NOTE | 2021-01-23 | NUR ---
VAP ORAL CARE, REPOSITIONING, ET/ORAL SUCTIONING, HYGIENE, AND SAFETY CHECKS PROVIDED. PATIENT RESTING IN A POSITION OF COMFORT, RASS -3, INTUBATED AND SEDATED. PATIENT TOLERATING VENT AND THERAPIES WELL, WILL CONTINUE TO CLOSELY MONITOR AND FREQUENTLY ROUND.
[2021-01-23] MEDS: ALBUTEROL 0.083% 2.5 MG/3 ML NEBU INH SCH ×4 (01:17→19:01)
[2021-01-23] MEDS: IPRATROPIUM 0.02% 0.5 MG/2.5 ML NEBU INH SCH ×4 (01:17→19:01)
--- NOTE | 2021-01-23 02:00 | NUR ---
PREOP RN CHECKLIST COMPLETED, PATIENT CONTINUING TO TOLERATE CURRENT THERAPIES WELL. WILL CONTINUE TO CLOSELY MONITOR AND FREQUENTLY ROUND.
--- NOTE | 2021-01-23 04:00 | NUR ---
CHG BED BATH GIVEN, VAP ORAL CARE, REPOSITIONING, HYGIENE, ET/ORAL SUCTIONING, ELENITA CARE, AND SAFETY CHECKS PROVIDED. PATIENT CONTINUING TO TOLERATE CURRENT THERAPIES WELL, RESTING IN A POSITION OF COMFORT, RASS -3, WILL CONTINUE TO CLOSELY MONITOR AND FREQUENTLY ROUND.
[2021-01-23] MEDS: PIPERACILLIN/TAZOBACTAM 3.375 GM in DEXTROSE 5% 50 ML IV SCH ×4 (05:02→23:55)
--- NOTE | 2021-01-23 06:00 | NUR ---
PATIENT CONTINUES TO REST, CALM AND IN POSITION OF COMFORT, HOB 30 DEGREES, TOLERATING VENT AND THERAPIES WELL. WILL CONTINUE TO CLOSELY MONITOR AND FREQUENTLY ROUND.
[2021-01-23 06:01] LABS: ANION GAP 14.6 (8-16); CARBON DIOXIDE 24.4 mmol/L (21-32); CREATININE 1.7 mg/dL (0.6-1.3)
[2021-01-23 06:10] LABS: BASOPHILS % (AUTO) 0.3 % (0.0-2.0); EOSINOPHILS # (AUTO) 0.1 K/uL (0-0.4); HEMATOCRIT 27.6 % (36-48); HEMOGLOBIN 9.1 g/dL (12.0-16.0); LYMPHOCYTES # (AUTO) 0.3 K/uL (2.5-16.5); LYMPHOCYTES % (AUTO) 4.9 % (20.5-51.1); MEAN CORPUSCULAR HEMOGLOBIN 28 pg (27-31); MEAN CORPUSCULAR HGB CONC 33 g/dL (33-37); MEAN CORPUSCULAR VOLUME 83.3 fL (80-94); MONOCYTES # (AUTO) 0.1 K/uL (0.8-1.0); MONOCYTES % (AUTO) 1.2 % (1.7-9.3); NEUTROPHILS # (AUTO) 6.3 K/uL (1.8-7.7); NEUTROPHILS % (AUTO) 92.6 % (42.2-75.2); PLATELET COUNT (AUTO) 87 K/uL (140-450); RED BLOOD CELL COUNT(AUTO) 3.32 MIL/uL (4.20-5.40); RED CELL DISTRIBUTION WIDTH 14.4 % (11.6-13.7); WHITE BLOOD COUNT (AUTO) 6.8 K/uL (4.8-10.8)
[2021-01-23] MEDS: BLOOD GLUCOSE MONITORING 1 DEV DEV FS SCH ×4 (06:47→21:10)
[2021-01-23] MEDS: INSULIN LISPRO SLIDING SCALE 100 UNITS/ML VIAL SUBQ PRN ×2 (06:48→11:40)
[2021-01-23 06:56] LABS: PHOSPHORUS 0.9 mg/dL (2.5-4.9)
--- NOTE | 2021-01-23 07:00 | NUR ---
REPORT AND CARE ENDORSED TO MADONNA DALEY.
--- NOTE | 2021-01-23 07:00 | NUR ---
NOTIFIED SURGEON AT BEDSIDE PERFORMING URETERAL STENT PLACEMENT OF AM LAB RESULTS, SPECIFICALLY POINTING OUT THE CRITICAL LAB VALUE OF PHOS 0.9. K+ 3. NURSE TO REPLACE WHEN PT RETURNS FROM SURGERY.
--- NOTE | 2021-01-23 07:45 | NUR ---
UPON INITIAL ASSESSMENT PT IS SEDATED AND LYING ON R SIDE IN BED. PT IS IN NO SIGNS OF ACUTE DISTRESS. PT BREATHING WITH VENTILATOR AT A RATE OF 20, PEEP OF 5, AND TIDAL VOLUME OF 450 WITH FIO2 OF 28%. SATURATIONS IN MID 90S, HR IN 80S SINUS RHYTHM, AND MAPS IN 80S. PT WARM TO TOUCH, PULSES REGULAR AND STRONG. PT CURRENTLY HAS 2 MG/HR VERSED AND 10 MCG/KG PROPOFOL INFUSING INTO R 3 LUMEN IJ. WILL CONTINUE TO MONITOR AND ASSESS PATIENT.
[2021-01-23] MEDS: LORazepam 2 MG/ML VIAL IVP PRN (07:58)
--- NOTE | 2021-01-23 08:46 | NUR ---
PT TRANSPORTED TO OR FOR BILATERAL URETERAL STENT PLACEMENT AND CYTOSCOPY WITH ASSISTANCE OF RT, 2 NURSES, AND ANESTHESIOLOGIST AT 0810. REPORT GIVEN TO ANESTHESIOLOGIST. PT DISCONNECTED FROM IV GTTS AND ADMINISTERED PRN ATIVAN. APPEARS CALM.
[2021-01-23] MEDS: CALCIUM CARB/VIT-D 500 MG/200 IU 1 TAB GT SCH (09:00)
[2021-01-23] MEDS: CHOLECALCIFEROL 1,000 IU TAB GT SCH (09:00)
[2021-01-23] MEDS: GLIMEPIRIDE 2 MG TAB GT SCH (09:00)
[2021-01-23] MEDS: MULTIVITAMIN/MINERALS 1 TAB GT SCH (09:00)
[2021-01-23] MEDS: ASCORBIC ACID 500 MG/5 ML ORASYR GT SCH (09:00)
--- NOTE | 2021-01-23 09:00 | NUR ---
UNABLE TO RECORD 0900 VITAL SIGNS- AT PROCEDURE IN OR.
[2021-01-23] MEDS: NACL 0.45% 1,000 ML IV SCH ×2 (10:13→20:39)
[2021-01-23] MEDS ORDERED: POTASSIUM PHOSPHATE 15 MM in NACL 0.9% 250 ML IV SCH ×2 (11:00→17:00)
--- NOTE | 2021-01-23 14:13 | NUR ---
AT 1000 DR HINOJOSA AT BEDSIDE FOR PATIENT ROUNDS. NOTIFIED MD OF MORNING LABS, INCLUDING PHOS OF 0.9 AND K+ OF 3. MD REQUESTED ORDER FOR 30 OF K PHOS. PHARMACY SPLIT INTO 2 DOSES. 1ST DOSE ADMINISTERED, 2ND SCHEDULED FOR 1700. NO ECTOPY ON CARDIAC STRIP. NORMAL SINUS RHYTHM. WILL CONTINUE TO MONITOR.
--- NOTE | 2021-01-23 16:44 | NUR ---
01/23/21 RD FOLLOW UP COMPLETED PLEASE REFER TO NUTRITION ASSESSMENT UNDER CARE ACTIVITY FOR ESTIMATED NUTRITIONAL NEEDS. 1. RECOMMEND VITAL AF 1.2 AT 60 ML/HR. -THIS PROVIDES 1440 ML TOTAL VOLUME 1728 KCAL AND 108 GM OF PROTEIN , WHICH IS ADEQUATE TO MEET 100% OF ESTIMATED KCAL AND PROTEIN NEEDS. 2. CONSIDER FREE WATER FLUSH OF 100 ML Q4H OR PER MD. 3. RD WILL F/U 2-3 DAYS; HIGH RISK. MARIS SMILEY, RD
--- NOTE | 2021-01-23 18:31 | NUR ---
PT LYING COMFORTABLY ON L SIDE. RASS -3 WITH 3 MG/H VERSED RUNNING. BLOOD PRESSURE NOTICEABLY LOWER WHEN PT TURNED TO R SIDE. BP 80S/50S AND MAPS IN 60. ON L SIDE, MAPS IN 80S. WILL CONTINUE TO MONITOR AND ASSESS PATIENT.
--- NOTE | 2021-01-23 20:00 | NUR ---
RECEIVED PATIENT IN BED. PT SEDATED AND INTUBATED. VENT SETTINGS AC/ PRVC, FIO2 30%, VT 450, PEEP 6, RATE 18. PT TOLERATING WELL. NO ACUTE SIGNS OR DISTRESS AT THIS TIME. PEG IN PLACE. PATIENT TOLERATING TF WELL, NO RESIDUALS NOTED. FORD CATH IN PLACE, DRAINING CLEAR, LIGHT PINK URINE. BILATERAL FEET EDEMA NOTED. PT WITH TRIPLE LUMEN RIGHT IJ CENTRAL LINE. LUMENS FLUSH WELL WITH GOOD BLOOD RETURN. PT ON VERSED 3MG/HR. RASS -3 AT THIS TIME.
[2021-01-23] MEDS: SIMVASTATIN 20 MG TAB GT SCH (20:38)
--- NOTE | 2021-01-23 20:38 | NUR ---
ADMINISTERED SCHEDULED MED VIA [employer]. NO RESIDUALS NOTED
[2021-01-24] VITALS (36 sets, daily range): BP systolic 41–146; BP diastolic 49–82
--- NOTE | 2021-01-24 00:30 | NUR ---
ORAL CARE GIVEN. PT REPOSITIONED. PT TOLERATED WELL, RASS -3.
[2021-01-24] MEDS: ALBUTEROL 0.083% 2.5 MG/3 ML NEBU INH SCH ×2 (01:31→19:13)
[2021-01-24] MEDS: IPRATROPIUM 0.02% 0.5 MG/2.5 ML NEBU INH SCH ×2 (01:31→19:12)
[2021-01-24] MEDS: MIDAZOLAM MDV 100 MG in NACL 0.9% 80 ML IV PRN (03:29)
[2021-01-24 05:57] LABS: BASOPHILS % (AUTO) 0.3 % (0.0-2.0); EOSINOPHILS # (AUTO) 0.1 K/uL (0-0.4); EOSINOPHILS % (AUTO) 1.6 % (0.0-4.0); HEMATOCRIT 27.8 % (36-48); LYMPHOCYTES # (AUTO) 0.4 K/uL (2.5-16.5); LYMPHOCYTES % (AUTO) 6.7 % (20.5-51.1); MEAN CORPUSCULAR HEMOGLOBIN 27 pg (27-31); MEAN CORPUSCULAR HGB CONC 32 g/dL (33-37); MEAN CORPUSCULAR VOLUME 83.8 fL (80-94); MONOCYTES # (AUTO) 0.1 K/uL (0.8-1.0); MONOCYTES % (AUTO) 1.1 % (1.7-9.3); NEUTROPHILS # (AUTO) 5.7 K/uL (1.8-7.7); NEUTROPHILS % (AUTO) 90.3 % (42.2-75.2); PLATELET COUNT (AUTO) 83 K/uL (140-450); RED BLOOD CELL COUNT(AUTO) 3.31 MIL/uL (4.20-5.40); RED CELL DISTRIBUTION WIDTH 14.8 % (11.6-13.7); WHITE BLOOD COUNT (AUTO) 6.3 K/uL (4.8-10.8)
[2021-01-24 06:02] LABS: PHOSPHORUS 3.6 mg/dL (2.5-4.9)
[2021-01-24 06:05] LABS: ANION GAP 16.4 (8-16); CARBON DIOXIDE 23.3 mmol/L (21-32); CREATININE 1.8 mg/dL (0.6-1.3); POTASSIUM 3.7 mmol/L (3.5-5.1)
[2021-01-24] MEDS: PIPERACILLIN/TAZOBACTAM 3.375 GM in DEXTROSE 5% 50 ML IV SCH ×4 (06:28→23:57)
[2021-01-24] MEDS: BLOOD GLUCOSE MONITORING 1 DEV DEV FS SCH ×4 (06:38→20:52)
[2021-01-24] MEDS: INSULIN LISPRO SLIDING SCALE 100 UNITS/ML VIAL SUBQ PRN ×4 (06:43→20:51)
--- NOTE | 2021-01-24 07:10 | NUR ---
CHECKED ON PATIENT, NO SIGNS OF DISTRESS, FLACC 0, ETT TO VENT.
--- NOTE | 2021-01-24 07:31 | NUR ---
PATIENT REPORT GIVEN TO AM NURSE
--- NOTE | 2021-01-24 07:38 | NUR ---
RECEIVED REPORT FROM JOURNEYMAN WIREMAN RN FOR CONTINUITY OF CARE. RASS-3, FLACC 0. ETT TO VENT, A/C PRVC FIO 30, TD 450, PP 6, R 18. SR ON MONITOR. LW 22G CLEAN, DRY AND INTACT. RIJ TRIPLE LUMEN, CLEAN, DRY, AND INTACT, INFUSING VERSED AT 3 MG/H AND 1/2 NS AT 75 ML/H. PED TUBE IN PLACE RUNNING VITAL AF AT 60 ML/H. LAST ACCU CHECK 24, COVERED WITH [address], WITH 400 BLOODY OUTPUT. NO BM. WILL CONTINUE TO MONITOR.
[2021-01-24] MEDS: ASCORBIC ACID 500 MG/5 ML ORASYR GT SCH (08:04)
[2021-01-24] MEDS: MULTIVITAMIN/MINERALS 1 TAB GT SCH (08:04)
[2021-01-24] MEDS: GLIMEPIRIDE 2 MG TAB GT SCH (08:04)
[2021-01-24] MEDS: CHOLECALCIFEROL 1,000 IU TAB GT SCH (08:05)
--- NOTE | 2021-01-24 08:05 | NUR ---
CHECKED PATIENT RESIDUAL, 0 ML. ADMINISTERED SCHEDULED AM MEDICATION AND FLUSHED. RASS-3, FLACC 0. NO SIGNS OF DISTRESS. PROVIDED ORAL CARE, HYGIENE CARE, FORD CARE AND CHG BATH. REPOSITIONED PATIENT. NO BM. FORD CATH IN PLACE, HANGING WITH PINK TINGED URINE WITH SEDIMENTS IN BAG. TEMPERATURE 96.1, GAVE PATIENT EXTRA BLANKET. ESTIMATING ENGINEER, PULSE OXIMETER, AND SAFETY MEASURES IN PLACE. BED IN LOW POSITION. HEAD OF BED AT 30 DEGREES. WILL CONTINUE TO MONITOR.
[2021-01-24] MEDS: CALCIUM CARB/VIT-D 500 MG/200 IU 1 TAB GT SCH (08:06)
--- NOTE | 2021-01-24 08:35 | NUR ---
ROUNDING ON PATIENT, UPDATED ON PATIENT STATUS, AWARE PATIENT LOW TEMPERATURE. WILL CONTINUE TO MONITOR.
--- NOTE | 2021-01-24 10:05 | NUR ---
CHECKED ON PATIENT. RASS-3, FLACC 0. NO SIGN OF DISTRESS. WILL CONTINUE TO MONITOR.
--- NOTE | 2021-01-24 10:14 | NUR ---
DR. TULIO VIGIL, UPDATED ON PATIENT STATUS, STATED TO START WEANING OF SEDATION AND START CPAP TRIAL. DECREASED VERSED FROM 3MG/H TO 2 MG/H. WILL CONTACT RT, WILL CONTINUE TO MONITOR.
--- NOTE | 2021-01-24 11:00 | NUR ---
DECREASED VERESED FROM 2MG/H TO 1MG/H.
--- NOTE | 2021-01-24 11:30 | NUR ---
CHECKED PATIENT BLOOG SUGAR, 244, COVERED WITH 4 UNITS PER MD SLIDING SCALE. ADMINISTERED SCHEDULED AFTERNOON MEDS, NO SIGNS OF DISTRESS, PORTFOLIO MANAGEMENT MARKETING, PULSE OXIMETER, AND SAFETY MEASURES IN PLACE, HEAD OF BED AT 30 DEGREES, BED IN LOW POSITION, WILL CONTINUE TO MONITOR.
--- NOTE | 2021-01-24 12:00 | NUR ---
CHECKED PATIENT'S TEMPERATURE, 92.0 DEGREES AXILLA, ORDERED BEAR HUGGER. HELD VERSED, PER DR. ANTUNEZ ORDER'S, WILL NOTIFY RT FOR CPAP TRIAL. WILL CONTINUE TO MONITOR.
--- NOTE | 2021-01-24 12:20 | NUR ---
SISTER, EVIN ([phone]), CALLED AND WAS UPDATED ON PATIENT STATUS.
--- NOTE | 2021-01-24 12:30 | NUR ---
RECEIVED BEAR HUGGER PLACED, ON PATIENT WILL RECHECK TEMPERATURE, REPOSITIONED PATIENT.
--- NOTE | 2021-01-24 12:45 | NUR ---
DR. SHWETHA VIGIL, UPDATED ON PATIENT STATUS AND AWARE OF LOW URINE OUTPUT. WILL CONTINUE TO MONITOR.
[2021-01-24] MEDS: NACL 0.45% 1,000 ML IV SCH (12:53)
--- NOTE | 2021-01-24 13:05 | NUR ---
RT STARTED CPAP TRIAL. WILL CONTINUE TO MONITOR.
--- NOTE | 2021-01-24 14:36 | NUR ---
CHECKED ON PATIENT. NO SIGNS OF DISTRESS. FLACC 0. WINCE WITH STERNAL RUB. REPOSITIONED PATIENT. ON CPAP TRIAL. TEMP 96.4, HR 77, RR 33, BP 129/62, SPO2 94. TURBO GENERATOR OILER, PULSE OXIMETER, AND SAFETY MEASURES IN PLACE. HEAD OF BED AT 30 DEGREES. BED IN LOW POSITION. WILL CONTINUE TO MONITOR.
--- NOTE | 2021-01-24 16:09 | NUR ---
CHECKED ON PATIENT, NO SIGNS OF DISTRESS. RT STATED RESPIRATION TOO HIGH SWITCHED TO ETT TO VENT, AC/PRVC, FIO2 30, TD 450, RATE 18, PEEP 5, SPO2 93. EBD SPECIAL EDUCATION TEACHER, PULSE OXIMETER, SAFETY MEASURES IN PLACE, HEAD OF BED AT 30 DEGREES, BED IN LOW POSITION. WILL CONTINUE TO MONITOR.
--- NOTE | 2021-01-24 16:45 | NUR ---
CHECKED BLOOD SUGAR, 199, COVERED WITH 2 UNITS PER SLIDING SCALE. WILL CONTINUE TO MONITOR.
--- NOTE | 2021-01-24 17:28 | NUR ---
PT PLACED ON CPAP PS AT 1330, CPAP 5 PS 12, RR WAS SLIGHTLY ELEVATED , REMOVED OFF OF CPAP ATT 1545 DUE TO INCREASED WOB
--- NOTE | 2021-01-24 17:50 | NUR ---
CHECKED ON PATIENT, NO SIGNS OF DISTRESS. ADMINISTERED SCHEDULED EVENING MEDS. REPOSITIONED, NO BM. EMPTIED FORD CATH, PINK TINGED URINE WITH SEDIMENTS, OUTPUT 250. PUBLIC SAFETY OFFICER, PULSE OXIMETER, AND SAFETY MEASURES IN PLACE. HEAD OF BED AT 30 DEGREES. BED IN LOW POSITION. WILL CONTINUE TO MONITOR.
--- NOTE | 2021-01-24 19:13 | NUR ---
ENDORSED TO SPRAYER LEATHER NURSE, LUZ DALEY, FOR CONTINUITY OF CARE.
--- NOTE | 2021-01-24 20:00 | NUR ---
RECEIVED REPORT FROM DAY SHIFT RN. PT IS SEDATED, RASS -3. ETT TO VENT A/C PRVC FIO2: 30%, TV: 450, RATE: 18, PEEP 5. AUSCULTATION OF BREATH SOUNDS DIMINISHED UPPER AND LOWER GEORGE. S1S2 NOTED, SR NOTED ON MONITOR. PT HAS RT IJ CENTRAL LINE RUNNING 0.45% NS @ 100ML/HR, ASYMPTOMATIC AND PATENT. PT HAS PEG TUBE TO FEED IN LT UPPER QUADRANT, RESIDUAL 0ML. FORD CATH IN PLACE AND DRAINING TO GRAVITY, DARK YAMILETH URINE NOTED. SKIN: WOUND NOTED TO SACRAL AREA, OPTIFOAM IN PLACE. KURT HUGGER IN PLACE, CURRENT TEMP: 97.9F. HEEL PROTECTORS IN PLACE, HOB AT 30 DEGREES. SAFETY MEASURES IN PLACE, 2 SIDE RAILS UP, BED LOW AND LOCKED, WILL CONT TO MONITOR. Addendum: 01/25/21 at 0111 by Madison Malloy RN RN SEDATION MEDICATIONS HELD FOR NOW, PT IS RESTING WITH EYES CLOSED.
[2021-01-24] MEDS: SIMVASTATIN 20 MG TAB GT SCH (20:50)
--- NOTE | 2021-01-24 22:00 | NUR ---
TURNED AND REPOSITIONED PT. PT TOLERATED IT WELL, PTs LATEST TEMP: 97.9F, KURT BRADLEY STILL IN PLACE, SAFETY MEASURES IN PLACE, WILL CONT TO ASSESS.
[2021-01-25] VITALS (34 sets, daily range): BP systolic 80–172; BP diastolic 49–94
--- NOTE | 2021-01-25 | NUR ---
VAP ORAL CARE GIVEN, PTs LATEST TEMP: 97.8, KURT HUGGER STILL IN PLACE, TURNED AND REPOSITIONED PT. PT TOLERATED IT WELL. SAFETY MEASURES IN PLACE, HOB 30 DEGREES, SIDE RAILS UP, BED LOW AND LOCKED. WILL CONT TO MONITOR.
[2021-01-25] MEDS: ALBUTEROL 0.083% 2.5 MG/3 ML NEBU INH SCH ×3 (01:39→19:03)
[2021-01-25] MEDS: IPRATROPIUM 0.02% 0.5 MG/2.5 ML NEBU INH SCH ×3 (01:39→19:03)
[2021-01-25] MEDS: NACL 0.45% 1,000 ML IV SCH (01:54)
--- NOTE | 2021-01-25 02:00 | NUR ---
PTs LATEST TEMP: 99.3F. REMOVED KURT HUGGER, TURNED AND REPOSITIONED PT. WILL CONT TO ASSESS.
--- NOTE | 2021-01-25 04:00 | NUR ---
ROUTINE CARE GIVEN, CHG BATH, VAP ORAL CARE, FORD CARE. APPLIED LOTION TO PTs GEORGE HANDS AND FEET D/T SKIN FLAKY/PEELING. CHANGED LINEN AND GOWN, TURNED AND REPOSITIONED PT. PT TOLERATED WELL. AFEBRILE. SAFETY MEASURES IN PLACE, BED LOW AND LOCKED, HOB 30 DEGREES, 2 SIDE RAILS UP, HEEL PROTECTORS IN PLACE. WILL CONT TO MONITOR.
--- NOTE | 2021-01-25 06:00 | NUR ---
PTs CONDITION REMAINS UNCHANGED. TURNED AND REPOSITIONED PT. PT TOLERATED IT WELL. AFEBRILE. PT IS RESTING WITH EYES CLOSED. SAFETY MEASURES IN PLACE, BED LOW AND LOCKED, HOB 30 DEGREES, 2 SIDE RAILS UP, HEEL PROTECTORS IN PLACE. WILL CONT TO MONITOR
[2021-01-25] MEDS: PIPERACILLIN/TAZOBACTAM 3.375 GM in DEXTROSE 5% 50 ML IV SCH (06:04)
[2021-01-25 06:07] LABS: PHOSPHORUS 3.3 mg/dL (2.5-4.9)
[2021-01-25 06:10] LABS: ANION GAP 20.4 (8-16); CARBON DIOXIDE 20.5 mmol/L (21-32); CREATININE 2.1 mg/dL (0.6-1.3); POTASSIUM 3.9 mmol/L (3.5-5.1)
[2021-01-25 06:46] LABS: BASOPHILS % (AUTO) 0.4 % (0.0-2.0); EOSINOPHILS # (AUTO) 0.1 K/uL (0-0.4); EOSINOPHILS % (AUTO) 0.9 % (0.0-4.0); HEMATOCRIT 28.3 % (36-48); HEMOGLOBIN 9.4 g/dL (12.0-16.0); LYMPHOCYTES # (AUTO) 0.9 K/uL (2.5-16.5); MEAN CORPUSCULAR HEMOGLOBIN 28 pg (27-31); MEAN CORPUSCULAR HGB CONC 33 g/dL (33-37); MEAN CORPUSCULAR VOLUME 82.5 fL (80-94); MONOCYTES # (AUTO) 0.2 K/uL (0.8-1.0); MONOCYTES % (AUTO) 2.9 % (1.7-9.3); NEUTROPHILS # (AUTO) 6.8 K/uL (1.8-7.7); NEUTROPHILS % (AUTO) 84.8 % (42.2-75.2); PLATELET COUNT (AUTO) 105 K/uL (140-450); RED BLOOD CELL COUNT(AUTO) 3.43 MIL/uL (4.20-5.40); RED CELL DISTRIBUTION WIDTH 14.8 % (11.6-13.7); WHITE BLOOD COUNT (AUTO) 8.1 K/uL (4.8-10.8)
[2021-01-25] MEDS: INSULIN LISPRO SLIDING SCALE 100 UNITS/ML VIAL SUBQ PRN ×4 (06:50→21:37)
[2021-01-25] MEDS: BLOOD GLUCOSE MONITORING 1 DEV DEV FS SCH ×4 (06:50→21:38)
--- NOTE | 2021-01-25 07:10 | NUR ---
ENDORSED CARE TO DAY SHIFT EDI LOPEZ
--- NOTE | 2021-01-25 07:10 | NUR ---
RECEIVED REPORT FROM CLERICAL ASSIGNER RN FOR CONTINUITY OF CARE. RASS-3, FLACC 0. ETT TO VENT, A/C PRVC FIO 30, TD 450, PP 5, R 18. SR ON MONITOR. RIJ TRIPLE LUMEN, CLEAN, DRY, AND INTACT, 1/2 NS AT 100 ML/H. PEG TUBE IN PLACE RUNNING VITAL AF AT 60 ML/H. LAST ACCU CHECK 239, COVERED WITH [address], YAMILETH URINE HANGING IN BAG. NO BM. WILL CONTINUE TO MONITOR.
[2021-01-25] MEDS ORDERED: DEXTROSE 5% IV SCH (07:30)
[2021-01-25] MEDS ORDERED: TAZOBACTAM IV SCH (07:30)
[2021-01-25] MEDS ORDERED: PIPERACILLIN IV SCH (07:30)
[2021-01-25] MEDS ORDERED: FUROSEMIDE 100 MG/10 ML VIAL IV SCH (08:00)
[2021-01-25] MEDS: CALCIUM CARB/VIT-D 500 MG/200 IU 1 TAB GT SCH (08:40)
[2021-01-25] MEDS: GLIMEPIRIDE 2 MG TAB GT SCH (08:44)
[2021-01-25] MEDS: CHOLECALCIFEROL 1,000 IU TAB GT SCH (08:44)
[2021-01-25] MEDS: ASCORBIC ACID 500 MG/5 ML ORASYR GT SCH (08:45)
[2021-01-25] MEDS: MULTIVITAMIN/MINERALS 1 TAB GT SCH (08:45)
--- NOTE | 2021-01-25 09:30 | NUR ---
PROVIDED HYGIENE CARE, ORAL CARE, CHG, BATH, ELENITA-CARE, AND FORD CARE. HAD 1 LARGE BOWEL MOVEMENT. FORD CATH IN PLACE, HANGING WITH YAMILETH URINE IN BAG. CHANGED LINEN AND GOWN. REPOSITIONED PATIENT. CHECKED RESIDUAL, 0ML. ADMINISTERED SCHEDULED AM MEDICATION, FLUSHED AFTER. ETT TO VENT, A/C PRVC FIO2 30, TD 450, RATE 18, PEEP 5, SP02 94%. WILL CONTINUE TO MONITOR.
--- NOTE | 2021-01-25 10:10 | NUR ---
DR. TULIO VIGIL, UPDATED ON PATIENT STATUS, ATTEMPTED CPAP TRIAL. PATIENT TACHYPNEIC AND NOT TOLERATING. PUT BACK ON VENT. RECOMMENDED CPAP TRIALS DAILY. RT NOTIFIED. WILL CONTINUE TO MONITOR.
--- NOTE | 2021-01-25 11:50 | NUR ---
CHECKED BLOOD SUGAR, 250, COVERED WITH 4 UNITS PER SLIDING SCALE, WILL CONTINUE TO MONITOR.
--- NOTE | 2021-01-25 12:45 | NUR ---
DR.HUANG FROILAN VIGIL, UPDATED ON PATIENT STATUS AND AWARE OF INCREASED BP, INCREASED URINE OUTPUT, AND PATIENT OFF SEDATION.
[2021-01-25] MEDS: PIPERACILLIN/TAZOBACTAM 2.25 GM in DEXTROSE 5% 50 ML IV SCH ×2 (13:09→21:33)
[2021-01-25] MEDS: LORazepam 2 MG/ML VIAL IVP PRN ×2 (13:19→18:39)
--- NOTE | 2021-01-25 14:20 | NUR ---
1300 BREATHING TREATMENT HELD DUE TO TACHYCARIDA HR 117, NO WHEEZING NOTED
--- NOTE | 2021-01-25 14:48 | NUR ---
PATIENT IN NO DISTRESS, REPOSITIONED, WILL CONTINUE TO MONITOR.
--- NOTE | 2021-01-25 15:37 | NUR ---
PATIENT RESTING, NO SIGNS OF DISTRESS OR PAIN, WILL CONTINUE TO MONITOR.
--- NOTE | 2021-01-25 16:37 | NUR ---
01/25/21 RD FOLLOW UP COMPLETED PLEASE REFER TO NUTRITION ASSESSMENT UNDER CARE ACTIVITY FOR ESTIMATED NUTRITIONAL NEEDS. 1. CONTINUE VITAL AF 1.2 AT 60 ML/HR. -THIS PROVIDES 1440 ML TOTAL VOLUME 1728 KCAL AND 108 GM OF PROTEIN , WHICH IS ADEQUATE TO MEET 100% OF ESTIMATED KCAL AND PROTEIN NEEDS. 2. CONTINUE WATER FLUSH OF [address] WILL F/U 2-3 DAYS; HIGH RISK. MARIS SMILEY RD
--- NOTE | 2021-01-25 16:56 | NUR ---
CHECKED ON BLOOD SUGAR, 293, COVERED WITH 6 UNITS OF INSULIN PER SLIDING SCALE. WILL CONTINUE TO MONITOR.
--- NOTE | 2021-01-25 19:05 | NUR ---
CHECKED ON PATIENT, PROVIDED HYGIENE CARE, CHANGED LINEN, REPOSITIONED PATIENT. SAFETY MEASURES IN PLACE. BED IN LOW POSITION. WILL CONTINUE TO MONITOR. WILL ENDORSE TO FIELD ARTILLERY CREWMEMBER RN.
--- NOTE | 2021-01-25 19:16 | NUR ---
ENDORSED TO DRUM SAW OPERATOR RNRIKI FOR CONTINUITY OF CARE.
--- NOTE | 2021-01-25 20:00 | NUR ---
RECEIVED REPORT FROM JESSICA DALEY DAYSHIFT NURSE AT BEDSIDE FOR CONTINUITY OF CARE, PT IN STABLE CONDITION. PT IN BED AOX1 RASS-1 SCORE FLACC-O. SHE IS LYING IN BED IN SEMI FOWLERS POSITION WITH HOB UP 45%. SHE IS VENT TO ETT TUBE WITH VENT SETTINGS FOLLOWS: AC/PC FI02 30% TV 450 RR 18 PEEP 5. PT RESPIRATIONS EVEN AND UNLABORED. LUNG SOUNDS DIMINISHED. SHE HAS A RIGHT IJ IN PLACE RUNNING 1/2 NORMAL SALINE AT 5MLS/HR TO KVO. SHE HAS A FORD CATHETER IN PLACE DRAINING YELLOW URINE. BILATERAL HANDS, FOREARMS AND FEET NOTED WITH NON PITTING EDEMA. SCDS IN PLACE. V/S FOLLOWS: T 97.6 P 99 R 23 B/P 133/62 02 99%. ALL ORDERED PRECAUTIONS IN PLACE.
--- NOTE | 2021-01-25 21:00 | NUR ---
PT IN BED V/S FOLLOWS: P 96 B/P 121/73 02 92% WITH ALL CURRENT VENT SETTINGS RR 35.
[2021-01-25] MEDS: SIMVASTATIN 20 MG TAB GT SCH (21:29)
--- NOTE | 2021-01-25 21:40 | NUR ---
PT IN BED HOB UP, FLACC-O RIJ TRIPLE LUMEN INTACT AND RUNNING 1/2 NORMAL SALINE AT 5MLS/HR. NEW BAG OF FLUIDS HUNG AND ZOSYN HUNG AND RUNNING AT 100MLS/HR ORDERED. PT REPOSITIONED IN BED PT GIVEN ORDERED ZOCOR VIA GT. FINGERSTICK IS 174 2 UNITS OF HUMALOG COVERAGE PROVIDED PER S/S. G TUBE FLUSHED PATENT WITH NO RESIDUAL NOTED, AND CONTINUES ON 60 MLS/HR. ALL ORDERED PRECAUTIONS IN PLACE.
--- NOTE | 2021-01-25 22:00 | NUR ---
PT IN BED V/S FOLLOWS: P 96 R 35 B/P 121/73 02 92%. ALL ORDERED PRECAUTIONS IN PLACE.
--- NOTE | 2021-01-25 22:30 | NUR ---
ROUNDS DONE NORMAL SALINE CONTINUES AT 5MLS/HR ORDERED. PT WAS SUCTIONED X1. ALL ORDERED PRECAUTIONS IN PLACE.
[2021-01-26] VITALS (47 sets, daily range): BP systolic 86–159; BP diastolic 55–127
--- NOTE | 2021-01-26 00:30 | NUR ---
PT IN BED AOX1 RESPONSIVE TO LIGHT PAIN, PT CONTINUES ON NORMAL SALINE AT 5MLS/HR. SHE WAS TURNED, AND REPOSITIONED IN BED FORD CATHETER INTACT AND DRAINING YELLOW URINE. V/S FOLLOWS: T 97.0 P 88 R 26 P 88 R 33 B/P 128/71 02 93% WITH ALL ETT TUBE TO VENT SETTINGS. ALL ORDERED PRECAUTIONS IN PLACE.
[2021-01-26] MEDS: IPRATROPIUM 0.02% 0.5 MG/2.5 ML NEBU INH SCH ×4 (01:00→19:16)
[2021-01-26] MEDS: ALBUTEROL 0.083% 2.5 MG/3 ML NEBU INH SCH ×4 (01:00→19:20)
--- NOTE | 2021-01-26 02:00 | NUR ---
ROUNDS DONE PT REPOSITIONED IN BED, FLACC-0. ALL ORDERED PRECAUTIONS IN PLACE.
[2021-01-26] MEDS: PIPERACILLIN/TAZOBACTAM 2.25 GM in DEXTROSE 5% 50 ML IV SCH ×3 (05:00→20:57)
[2021-01-26 06:17] LABS: ANION GAP 19.7 (8-16); CARBON DIOXIDE 21.1 mmol/L (21-32); CREATININE 2.4 mg/dL (0.6-1.3); POTASSIUM 3.8 mmol/L (3.5-5.1)
[2021-01-26 06:22] LABS: MAGNESIUM 2.2 mg/dL (1.8-2.4); PHOSPHORUS 4.2 mg/dL (2.5-4.9)
[2021-01-26 06:24] LABS: BASOPHILS % (AUTO) 0.5 % (0.0-2.0); EOSINOPHILS # (AUTO) 0.2 K/uL (0-0.4); EOSINOPHILS % (AUTO) 1.8 % (0.0-4.0); HEMATOCRIT 26.5 % (36-48); HEMOGLOBIN 8.7 g/dL (12.0-16.0); LYMPHOCYTES # (AUTO) 0.9 K/uL (2.5-16.5); LYMPHOCYTES % (AUTO) 9.9 % (20.5-51.1); MEAN CORPUSCULAR HEMOGLOBIN 27 pg (27-31); MEAN CORPUSCULAR HGB CONC 33 g/dL (33-37); MEAN CORPUSCULAR VOLUME 82.6 fL (80-94); MONOCYTES # (AUTO) 0.2 K/uL (0.8-1.0); NEUTROPHILS # (AUTO) 7.8 K/uL (1.8-7.7); NEUTROPHILS % (AUTO) 85.8 % (42.2-75.2); PLATELET COUNT (AUTO) 85 K/uL (140-450); RED CELL DISTRIBUTION WIDTH 14.6 % (11.6-13.7); WHITE BLOOD COUNT (AUTO) 9.1 K/uL (4.8-10.8)
[2021-01-26] MEDS: INSULIN LISPRO SLIDING SCALE 100 UNITS/ML VIAL SUBQ PRN ×4 (06:42→21:15)
[2021-01-26] MEDS: BLOOD GLUCOSE MONITORING 1 DEV DEV FS SCH ×4 (06:48→20:57)
--- NOTE | 2021-01-26 07:10 | NUR ---
RECEIVED BEDSIDE REPORT FROM VP DESIGN NURSE RIKI FOR CONTINUITY OF CARE. PATIENT IS LETHARGIC, PUPILS 3 MM, REACT TO LIGHT, SLUGGISH, UNABLE TO FOLLOW COMMAND, NOR ABLE TO MAKE NEED KNOWN, FLACC 0. RESPIRATION EVEN, UNLABORED, ON ETT TO VENT; AC/PRVC FIO2 30%, RATE 18, PEEP 5,TD 450, SPO2 95% AT THIS TIME. LUNGS SOUND DIMINISHED UPON AUSCULTATION. NO SIGNS OF ACUTE DISTRESS. RIJ IN PLACE, CLEAN AND INTACT, RUNNING NS TKO 5 ML/HR. ABDOMEN ROUND, AND NON-DISTENDED, G-TUBE IN PLACE, RUNNING VITAL AF 1.2 60 ML/HR, WATER FLUSH 100 ML/Q4H. SKIN CLEAN, WARM TO TOUCH, EDEMA, NON-PITTING, ON LEGS AND ARMS. FORD IN PLACE, YELLOW URINE NOTED, DRAINING WITH GRAVITY. PILLOWS USED TO OFFLOAD PRESSURE, HEEL PROTECTORS IN PLACE BILATERALLY. CONTACT ISOLATION FOR URINE PSEUDOMONAS AERUGIROSA AND BLOOD CULTURE PROTEUS MIRABILIS; SAFETY MEASURES IN PLACE. BED IN LOW POSITION, HOB ELEVATED 35 DEGREE, AND BED LOCKED.
--- NOTE | 2021-01-26 07:51 | NUR ---
RECEIVED CRITICAL LAB FOR BUN 82 FROM AM LAB, JAIR ROSA, DR SP TADEO IS SUPERVISOR SHIPPING, AWAITING FOR MD TO CALL BACK.
--- NOTE | 2021-01-26 07:55 | NUR ---
RECEIVED CALL BACK FROM DR TADEO, CRITICAL BUN 82 AND CR 2.4 MADE AWARE, ALSO INFORMED URINE OUTPUT FOR DAYSHIFT IS 1200 ML AND PACKAGE HANDLER 1000 ML PER DOCUMENT, DR TADEO WAS AWARE. NO ORDER RECEIVED AT THIS TIME.
--- NOTE | 2021-01-26 08:03 | NUR ---
DR ROSE IS ROUNDING ON PATIENT, UPDATED MD WITH PATIENT'S CONDITION, DR ROSE WAS AWARE.
[2021-01-26] MEDS: CALCIUM CARB/VIT-D 500 MG/200 IU 1 TAB GT SCH (09:10)
[2021-01-26] MEDS: ASCORBIC ACID 500 MG/5 ML ORASYR GT SCH (09:10)
[2021-01-26] MEDS: GLIMEPIRIDE 2 MG TAB GT SCH (09:10)
[2021-01-26] MEDS: CHOLECALCIFEROL 1,000 IU TAB GT SCH (09:10)
[2021-01-26] MEDS: MULTIVITAMIN/MINERALS 1 TAB GT SCH (09:10)
--- NOTE | 2021-01-26 09:32 | NUR ---
CHECKED G-TUBE RESIDUAL RECEIVED 5 ML, FLUSHED. ADMINISTERED SCHEDULED MEDS PER MD ORDER, FLUSHED BEFORE AND AFTER MEDS. PROVIDED AM HYGIENE CARE, ORAL CARE, SUCTIONING, FORD CARE AND CHG BATH, PATIENT TOLERATED FAIR, FLACC 0. POSITIONED PATIENT COMFORTABLY WITH PILLOWS, HELL PROTECTORS IN PLACE BILATERALLY. RESPIRATION EVEN AND UNLABORED, SPO2 AT 90% AT THIS TIME. SAFETY MEASURES IN PLACE. HOB ELEVATED 35 DEGREE, BED IN LOW POSITION AND BED LOCKED.
--- NOTE | 2021-01-26 11:02 | NUR ---
RECEIVED A CALL FROM PATIENT'S SISTER EVIN, UPDATED EVIN WITH PATIENT'S CURRENT CONDITION, LABS AND VITAL SIGNS, ANSWERED ALL HER QUESTIONS, EVIN WAS AWARE OF PATIENT'S CONDITION AND PLAN OF CARE.
--- NOTE | 2021-01-26 11:03 | NUR ---
CARTER MOREL PAGED REGARDING DR TADEO'S QUESTION THAT IF DR ROSE HAS USE CONTRAST OR NOT DURING STENT PLACEMENT, AWAITING FOR DR ROSE TO CALL BACK.
--- NOTE | 2021-01-26 11:06 | NUR ---
RECEIVED CALL BACK FROM CARTER MOREL; INFORMED DR ROSE THAT DR TADEO WANTS TO KNOW IF CONTRAST USED DURING STENT PLACEMENT, PER DR ROSE, YES, BUT CONTRAST DID NOT AFFECT THE KIDNEY FUNCTION. SP OJEDA PAGED AND AWAITING FOR CALL BACK.
--- NOTE | 2021-01-26 11:23 | NUR ---
RECEIVED CALL BACK FROM DR SP TADEO, INFORMED HER OF CARTER MOREL'S STATEMENT, DR TADEO WAS AWARE.
--- NOTE | 2021-01-26 11:35 | NUR ---
BLOOD GLUCOSE 281, 6 UNIT HUMALOG COVERED. PROVIDED ORAL CARE. REPOSITIONED PATIENT, PILLOWS USED TO OFFLOAD PRESSURE, HEEL PROTECTORS IN PLACE BILATERALLY. PATIENT'S EYES CLOSED, NOT AROUDSABLE, NOT UNABLE TO FOLLOW COMMAND, FLACC 0. RESPIRATION EVEN AND UNLABORED, SPO2 95% AT THIS TIME. NO SIGNS OF ACUTE DISTRESS NOTED. SAFETY MEASURES IN PLACE.
--- NOTE | 2021-01-26 13:20 | NUR ---
STARTED A NEW BOTTLE OF G-TUBE FEEDING VITAL AF 1.2, CHANGED TUBING AND LABELED, RUNNING AT 60 ML/HR AND WATER FLUSH 100 ML/Q4H. PATIENT IS RESTING ON BED, FLACC 0. PATIENT IS ABLE TO SLOW MOVING HER HEAD AND HER ARMS, BUT EYES CLOSED, NOT ABLE TO MAKE NEED KNOWN, NOR FOLLOW COMMAND. SAFETY MEASURES IN PLACE. HOB ELEVATED 35 DEGREE, BED IN LOW POSITION AND BED LOCKED.
[2021-01-26] MEDS: Z-GUARD PASTE TP SCH (13:41)
--- NOTE | 2021-01-26 13:41 | NUR ---
DR SP TADEO IS ROUNDING ON PATIENT, UPDATED MD WITH PATIENT'S CONDITION.
--- NOTE | 2021-01-26 13:42 | NUR ---
SCHEDULED ZOSYN ADMINISTERED. WITH ASSIST, CLEANSED SACRAL AND PERINEAL AERE, PAT DRY, APPLIED THIN LAYER Z-GUARD ON PERINEAL AND SACRAL AREA, HEART SHAPE OPTIFOAM APPLIED. POSITIONED PATIENT COMFORTABLY, PILLOWS AND HEEL PROTECTORS USED TO OFFLOAD PRESSURE, PATIENT TOLERATED FAIR, FLACC 0. SAFETY MEASURES IN PLACE.
--- NOTE | 2021-01-26 14:09 | NUR ---
DR FLANAGAN IS ASSESSING PATIENT AT BEDSIDE. CHANGED VENT TO CPAP TRAIL, PER DR ANTUNEZ, LONG PATIENT IS ABLE TO TOLERATE CPAP, KEEP HER ON CPAP TRAIL. RT JONES MADE AWARE OF VENT SETTING CHANGED BY DR ANTUNEZ.
--- NOTE | 2021-01-26 17:33 | NUR ---
BLOOD GLUCOSE 192,2UNIT HUMALOG COVERED. ORAL CARE PROVIDED. WITH ASSIST, REPOSITIONED PATIENT COMFORTABLY, PILLOWS AND HEEL PROTECTORS USED TO OFFLOAD PRESSURE, PATIENT TOLERATED FAIR, FLACC 0. RESPIRATION EVEN, UNLABORED ON CPAP, SPO2 95%. NO SIGNS OF DISTRESS NOTED. SAFETY MEASURES IN PLACE.
--- NOTE | 2021-01-26 19:21 | NUR ---
ENDORSED PATIENT TO POLICY WRITER SALES NURSE PLAZA FOR CONTINUITY OF CARE. SAFETY MEASURES IN PLACE.
--- NOTE | 2021-01-26 20:30 | NUR ---
PATIENT BACK ON AC/PRVC MODE WITH 30% FIO2,PATIENT IS RESTLESS AGITATED,TACHYPNEIC WITH RESPIRATORY RATE 40-45/MIN AND DESATURATION AT 90%/ SUCTION PATIENT AND INCREASE O2 TO 100%,CALLED RT AT BEDSIDE.MEDICATED PATIENT WITH ATIVAN 2 MG IVP.PATIENT CONTINUE TO BE TACCHYPNEIC WITH RESPIRATION UP TO 45-48/MIN.INSTALLATION TECHNICIAN CALLED DR HADDAD OF PATIENT DR HADDAD ORDERED TO START PATIENT ON PRECEDEX AT VERY LOW DOSE KEEPING RAAS AT -1.
[2021-01-26] MEDS: LORazepam 2 MG/ML VIAL IVP PRN (21:07)
[2021-01-26] MEDS: SIMVASTATIN 20 MG TAB GT SCH (21:08)
[2021-01-26] MEDS: DEXMEDETOMIDINE HCL 400 MCG in NACL 0.9% 96 ML IV PRN (22:31)
[2021-01-27] VITALS (36 sets, daily range): BP systolic 88–156; BP diastolic 45–77
[2021-01-27] MEDS: Z-GUARD PASTE TP SCH ×2 (01:00→12:51)
[2021-01-27] MEDS: IPRATROPIUM 0.02% 0.5 MG/2.5 ML NEBU INH SCH ×4 (01:22→20:00)
[2021-01-27] MEDS: ALBUTEROL 0.083% 2.5 MG/3 ML NEBU INH SCH ×4 (01:23→20:00)
[2021-01-27] MEDS: PIPERACILLIN/TAZOBACTAM 2.25 GM in DEXTROSE 5% 50 ML IV SCH ×3 (05:20→20:39)
[2021-01-27 06:10] LABS: BASOPHILS % (AUTO) 0.4 % (0.0-2.0); EOSINOPHILS # (AUTO) 0.1 K/uL (0-0.4); EOSINOPHILS % (AUTO) 1.3 % (0.0-4.0); HEMATOCRIT 23.5 % (36-48); HEMOGLOBIN 7.8 g/dL (12.0-16.0); LYMPHOCYTES # (AUTO) 0.6 K/uL (2.5-16.5); LYMPHOCYTES % (AUTO) 7.8 % (20.5-51.1); MEAN CORPUSCULAR HEMOGLOBIN 27 pg (27-31); MEAN CORPUSCULAR HGB CONC 33 g/dL (33-37); MEAN CORPUSCULAR VOLUME 82.4 fL (80-94); MONOCYTES # (AUTO) 0.1 K/uL (0.8-1.0); MONOCYTES % (AUTO) 1.4 % (1.7-9.3); NEUTROPHILS # (AUTO) 7.2 K/uL (1.8-7.7); NEUTROPHILS % (AUTO) 89.1 % (42.2-75.2); PLATELET COUNT (AUTO) 80 K/uL (140-450); RED BLOOD CELL COUNT(AUTO) 2.86 MIL/uL (4.20-5.40); RED CELL DISTRIBUTION WIDTH 14.6 % (11.6-13.7); WHITE BLOOD COUNT (AUTO) 8.1 K/uL (4.8-10.8)
[2021-01-27 06:39] LABS: MAGNESIUM 2.1 mg/dL (1.8-2.4); PHOSPHORUS 5.1 mg/dL (2.5-4.9)
[2021-01-27 06:40] LABS: ANION GAP 19.2 (8-16); CARBON DIOXIDE 22.1 mmol/L (21-32); CREATININE 2.4 mg/dL (0.6-1.3); POTASSIUM 3.3 mmol/L (3.5-5.1)
[2021-01-27] MEDS: BLOOD GLUCOSE MONITORING 1 DEV DEV FS SCH ×4 (07:30→20:57)
--- NOTE | 2021-01-27 07:30 | NUR ---
RECEIVED REPORT FROM PROTECTION ANALYST NURSE. PATIENT SLEEPING. WILL CONTINUE TO MONITOR.
[2021-01-27] MEDS: CHOLECALCIFEROL 1,000 IU TAB GT SCH (08:23)
[2021-01-27] MEDS: MULTIVITAMIN/MINERALS 1 TAB GT SCH (08:23)
[2021-01-27] MEDS: ASCORBIC ACID 500 MG/5 ML ORASYR GT SCH (08:24)
[2021-01-27] MEDS: CALCIUM CARB/VIT-D 500 MG/200 IU 1 TAB GT SCH (08:28)
[2021-01-27] MEDS: INSULIN LISPRO SLIDING SCALE 100 UNITS/ML VIAL SUBQ PRN ×4 (08:28→20:41)
[2021-01-27] MEDS: GLIMEPIRIDE 2 MG TAB GT SCH (08:33)
--- NOTE | 2021-01-27 08:34 | NUR ---
SCHEDULED MEDICATIONS DUE GIVEN. WILL CONTINUE TO MONITOR.
[2021-01-27] MEDS ORDERED: KCL 20 MEQ/WATER INJ PREMIX 200 ML IV ONE (09:00)
[2021-01-27] MEDS: LORazepam 2 MG/ML VIAL IVP PRN (09:49)
--- NOTE | 2021-01-27 09:50 | NUR ---
PATIENT RESTLESS AND ANXIOUD, RESPIRATIONS 42, O2 SAT 90%. ATIVAN PRN GIVEN AT THIS TIME. WILL CONTINUE TO MONITOR.
--- NOTE | 2021-01-27 11:00 | NUR ---
REPOSITIONED AND CLEANED PATIENT. PATIENT. WILL CONTINUE TO MONITOR.
--- NOTE | 2021-01-27 12:30 | NUR ---
REPOSITIONED PATIENT. CONDITION UNCHANGED. WILL CONTINUE TO MONITOR.
--- NOTE | 2021-01-27 14:11 | NUR ---
01/27/21 RD FOLLOW UP COMPLETED. PLEASE REFER TO NUTRITION PROGRESS NOTE UNDER CARE ACTIVITY FOR ESTIMATED NUTRITION NEEDS. RD RECOMMENDATIONS: 1. CONTINUE VITAL AF 1.2 AT 60 ML/HR. -THIS PROVIDES 1440 ML TOTAL VOLUME 1728 KCAL AND 108 GM OF PROTEIN , WHICH IS ADEQUATE TO MEET 100% OF ESTIMATED KCAL AND PROTEIN NEEDS. 2. CONTINUE WATER FLUSH OF [address] WILL F/U 2-3 DAYS; HIGH RISK. SOURAV MENDOZA MBA, RD
--- NOTE | 2021-01-27 16:00 | NUR ---
REPOSITIONED PATIENT. CONDITION UNCHANGED. WILL CONTINUE TO MONITOR.
[2021-01-27] MEDS: DEXMEDETOMIDINE HCL 400 MCG in NACL 0.9% 96 ML IV PRN (17:18)
--- NOTE | 2021-01-27 19:07 | NUR ---
GAVE REPORT TO WRAPPER STITCHER NURSE FOR CONTINUITY OF CARE. PATIENT REMAINS IN CRITICAL CONDITION.
[2021-01-27] MEDS: SIMVASTATIN 20 MG TAB GT SCH (20:57)
[2021-01-28] VITALS (34 sets, daily range): BP systolic 98–147; BP diastolic 49–94
[2021-01-28] MEDS: Z-GUARD PASTE TP SCH ×2 (01:00→12:02)
[2021-01-28] MEDS: ALBUTEROL 0.083% 2.5 MG/3 ML NEBU INH SCH ×4 (01:47→19:55)
[2021-01-28] MEDS: PIPERACILLIN/TAZOBACTAM 2.25 GM in DEXTROSE 5% 50 ML IV SCH ×3 (04:39→21:52)
--- NOTE | 2021-01-28 07:10 | NUR ---
RECEIVED REPORT FROM ADJUNCT PROFESSOR OF ENGLISH RN FOR CONTINUITY OF CARE. RASS-3, FLACC 0. ETT TO VENT, A/C PC FIO2 40, R 20. SR ON MONITOR. RIJ TRIPLE LUMEN, CLEAN, DRY, AND INTACT, INFUSING PRECEDEX AT 0.4 MCG/KG/H AND NS AT 5 ML/H TKO. PEG TUBE IN PLACE RUNNING VITAL AF AT 60 ML/H. LAST ACCU CHECK 242, COVERED WITH [address], WITH 400 OUTPUT. NO BM. WILL CONTINUE TO MONITOR.
[2021-01-28] MEDS: IPRATROPIUM 0.02% 0.5 MG/2.5 ML NEBU INH SCH ×3 (07:22→19:55)
--- NOTE | 2021-01-28 08:10 | NUR ---
DR. JUSTIN VIGIL, UPDATED STATUS REQUESTED XRAY ON PATIENT.
--- NOTE | 2021-01-28 08:15 | NUR ---
DR. ROSE VIGIL, UPDATED ON PATIENT STATUS. WILL CONTINUE TO MONITOR.
[2021-01-28] MEDS: BLOOD GLUCOSE MONITORING 1 DEV DEV FS SCH ×4 (08:19→21:00)
[2021-01-28] MEDS: INSULIN LISPRO SLIDING SCALE 100 UNITS/ML VIAL SUBQ PRN ×4 (08:20→22:35)
[2021-01-28] MEDS: ASCORBIC ACID 500 MG/5 ML ORASYR GT SCH (08:25)
[2021-01-28] MEDS: CHOLECALCIFEROL 1,000 IU TAB GT SCH (08:26)
[2021-01-28] MEDS: CALCIUM CARB/VIT-D 500 MG/200 IU 1 TAB GT SCH (08:26)
[2021-01-28] MEDS: MULTIVITAMIN/MINERALS 1 TAB GT SCH (08:26)
[2021-01-28] MEDS: GLIMEPIRIDE 2 MG TAB GT SCH (08:28)
--- NOTE | 2021-01-28 08:30 | NUR ---
CHECKED PATIENT RESIDUAL, NO RESIDUAL. ADMINISTERED SCHEDULED AM MEDS. ORAL CARE, HYGIENE CARE, FORD CARE, AND CHG BATH PROVIDED. REPOSITIONED PATIENT. WHISKEY REGAUGER, PULSE OXIMETER, AND SAFETY MEASURES IN PLACE. HEAD OF BED AT 30 DEGREES. BED IN LOW POSITION. WILL CONTINUE MONITOR.
[2021-01-28 08:55] LABS: BASOPHILS % (AUTO) 0.2 % (0.0-2.0); EOSINOPHILS # (AUTO) 0.2 K/uL (0-0.4); EOSINOPHILS % (AUTO) 1.8 % (0.0-4.0); HEMATOCRIT 23.1 % (36-48); HEMOGLOBIN 7.7 g/dL (12.0-16.0); LYMPHOCYTES % (AUTO) 10.3 % (20.5-51.1); MEAN CORPUSCULAR HEMOGLOBIN 28 pg (27-31); MEAN CORPUSCULAR HGB CONC 33 g/dL (33-37); MONOCYTES # (AUTO) 0.3 K/uL (0.8-1.0); MONOCYTES % (AUTO) 3.8 % (1.7-9.3); NEUTROPHILS # (AUTO) 7.7 K/uL (1.8-7.7); NEUTROPHILS % (AUTO) 83.9 % (42.2-75.2); PLATELET COUNT (AUTO) 81 K/uL (140-450); RED BLOOD CELL COUNT(AUTO) 2.78 MIL/uL (4.20-5.40); RED CELL DISTRIBUTION WIDTH 14.8 % (11.6-13.7); WHITE BLOOD COUNT (AUTO) 9.2 K/uL (4.8-10.8)
[2021-01-28 09:06] LABS: ALBUMIN 1.5 g/dL (3.4-5.0); ANION GAP 16.6 (8-16); CARBON DIOXIDE 22.5 mmol/L (21-32); CREATININE 2.4 mg/dL (0.6-1.3); POTASSIUM 4.1 mmol/L (3.5-5.1); TOTAL BILIRUBIN 0.3 mg/dL (0.0-1.0)
--- NOTE | 2021-01-28 09:40 | NUR ---
PAGED DR. ANDERSON, AWAITING CALL BACK.
--- NOTE | 2021-01-28 09:50 | NUR ---
DR. ANDERSON CALLED BACK, CLARIFIED HE WANTED CHEST XRAY. WILL CONTINUE TO MONITOR.
--- NOTE | 2021-01-28 12:05 | NUR ---
CHECKED ON PATIENT, NO SIGNS OF DISTRESS, HELD SEDATION FOR CPAP TRIAL, ADMINISTERED AFTERNOON MEDS, REPOSITIONED PATIENT, WILL CONTINUE TO MONITOR.
--- NOTE | 2021-01-28 12:40 | NUR ---
RESTARTED SEDATION TO 0.2 MCG/KG/ HR. PATIENT WAS TACHYPNEIC. RT AWARE WILL COME BACK TO DO CPAP TRIAL WHEN PATIENT IS LESS TACHYPNEIC. WILL CONTINUE TO MONITOR.
[2021-01-28] MEDS: DEXMEDETOMIDINE HCL 400 MCG in NACL 0.9% 96 ML IV PRN (12:41)
--- NOTE | 2021-01-28 14:40 | NUR ---
CHECKED ON PATIENT, NO SIGNS OF DISTRESS, PROVIDED INCONTINENCE CARE, REPOSITIONED PATIENT, APPLIED NEW OPTIFORM AND Z GUARD, WILL CONTINUE TO MONITOR.
--- NOTE | 2021-01-28 16:30 | NUR ---
CHECKED BLOOD SUGAR, 247, ADMINISTERED 4 UNITS PER SLIDING SCALE, WILL CONTINUE TO MONITOR.
--- NOTE | 2021-01-28 17:17 | NUR ---
PLACE PT ON CPAP TRIAL 10/5 FOR 2 HOURS. PT TOLERATED WELL. NO SIGNS OF RESPIRATORY DISTRESS. PT RETURNED BACK TO ORIGINAL DOCUMENTED SETTINGS. WILL CONTINUE TO MONITOR.
--- NOTE | 2021-01-28 18:15 | NUR ---
CHECKED ON PATIENT, NO SIGN OF DISTRESS. REPOSITIONED. HEAD OF BED AT 30 DEGREES. NET DEVELOPER ARCHITECT, PULSE OXIMETER, SAFETY MEASURES IN PLACE. BED IN LOW POSITION. WILL CONTINUE TO MONITOR. WILL ENDORSE TO MARINE CARGO INSPECTOR RN.
--- NOTE | 2021-01-28 19:20 | NUR ---
ENDORSED TO APPLIQUER NURSE, ELVIE DALEY, FOR CONTINUITY OF CARE.
[2021-01-28] MEDS: SIMVASTATIN 20 MG TAB GT SCH (21:50)
[2021-01-28] MEDS: LORazepam 2 MG/ML VIAL IVP PRN (23:53)
[2021-01-29] VITALS (23 sets, daily range): BP systolic 88–152; BP diastolic 45–85
[2021-01-29] MEDS: Z-GUARD PASTE TP SCH ×2 (01:00→12:34)
--- NOTE | 2021-01-29 01:00 | NUR ---
PT HEART RATE WAS 127, SO THE ALBUTEROL WAS NOT ADMINISTERED.
[2021-01-29] MEDS: IPRATROPIUM 0.02% 0.5 MG/2.5 ML NEBU INH SCH ×4 (01:59→19:08)
[2021-01-29] MEDS: PIPERACILLIN/TAZOBACTAM 2.25 GM in DEXTROSE 5% 50 ML IV SCH ×3 (05:07→20:44)
[2021-01-29] MEDS: INSULIN LISPRO SLIDING SCALE 100 UNITS/ML VIAL SUBQ PRN ×4 (05:52→20:32)
[2021-01-29] MEDS: ALBUTEROL 0.083% 2.5 MG/3 ML NEBU INH SCH ×3 (07:21→19:09)
[2021-01-29] MEDS: BLOOD GLUCOSE MONITORING 1 DEV DEV FS SCH ×4 (07:30→20:37)
--- NOTE | 2021-01-29 07:41 | NUR ---
RECEIVED BEDSIDE HANDOFF FROM NIGHTSHIFT RN. UPON INITIAL ASSESSMENT PT IS TACHYCARDIC IN 120S, BREATHING IN 40S ON 30% FIO2, TV 450, AND PEEP OF 5. PT BITING ET TUBE AND APPEARS RESTLESS AND ANXIOUS. MAPS IN LOW 100S WITHOUT PRESSORS. PRECEDEX INCREASED FROM 0.3 TO 0.5 MCG/KG/HR DUE TO RESTLESSNESS, AND 75 CC/HR OF STARTED PER ORDER. PULSES REGULAR AND PT WARM TO TOUCH. WILL CONTINUE TO MONITOR AND ASSESS PATIENT.
[2021-01-29] MEDS: NACL 0.9% 1,000 ML IV SCH ×2 (07:59→20:50)
[2021-01-29] MEDS: DEXMEDETOMIDINE HCL 400 MCG in NACL 0.9% 96 ML IV PRN (08:04)
[2021-01-29] MEDS: LORazepam 2 MG/ML VIAL IVP PRN ×3 (08:11→18:54)
[2021-01-29] MEDS: ASCORBIC ACID 500 MG/5 ML ORASYR GT SCH (08:11)
[2021-01-29] MEDS: CHOLECALCIFEROL 1,000 IU TAB GT SCH (08:12)
[2021-01-29] MEDS: MULTIVITAMIN/MINERALS 1 TAB GT SCH (08:12)
[2021-01-29] MEDS: CALCIUM CARB/VIT-D 500 MG/200 IU 1 TAB GT SCH (08:12)
[2021-01-29] MEDS: GLIMEPIRIDE 2 MG TAB GT SCH (08:13)
--- NOTE | 2021-01-29 09:21 | NUR ---
PRECEDEX OFF AT 0900 FOR SPONTANEOUS BREATHING TRIAL. CPAP TRIAL BEGAN AT 0921. BY 11 MD REQUESTED FEEDS OFF IN ORDER TO PREPARE FOR EXTUBATION. PT TOLERATED TRIAL. WILL CONTINUE TO MONITOR.
--- NOTE | 2021-01-29 10:45 | NUR ---
PT. WITH LOW FITO SCALE AT HIGH RISK,SKIN ASSESSMENT DONE WITH PRIMARY RN, IAD TO BUTTOCKS SKIN RED AND INTACT, PT WITH LOOSE WATERY BM X2 DURING ASSESSMENT, RECOMMEND RECTAL TUBING IF NOT CONTRAINDICATED WITH POC. BUTTOCKS APPLY Z GUARD AND FOAM DRESSING APPLY, WILL CONTINUE TO FOLLOW PRESSURE INJURY PREVENTION INTERVENTIONS. -RECOMMENDATION TO APPLY RECTAL TUBING PER MANUFACTURE GUIDELINES. -APPLY Z GUARD TO BUTTOCKS QD AND COVER WITH FOAM DRESSING BID AND PRN IF SOILING -TURN AND REPOSITION PATIENT Q 2H -ASSESS AND MONITOR SKIN CONDITION DURING POSITION CHANGE -OFFLOAD BILATERAL HEELS BY PLACING PILLOWS UNDER CALVES AT ALL TIMES, UNLESS OTHERWISE CONTRAINDICATED -PRESSURE REDISTRIBUTION BY PLACING PILLOWS AND OFFLOADING SACRALCOCCYX -KEEP SKIN CLEAN AND DRY AT ALL TIMES.
--- NOTE | 2021-01-29 11:19 | NUR ---
PT EXTUBATED TO 30% CA. VS STABLE AT HR 110, SAT 95%, BP 123/64. NO SIGNS OF RESPIRATORY DISTRESS. WILL CONTINUE TO MONITOR.
--- NOTE | 2021-01-29 11:30 | NUR ---
PT EXTUBATED AT 1119. COPIOUS SECRETIONS IN MOUTH POST EXTUBATION, BUT WITH FREQUENT SUCTIONING, SECRETIONS DIMINISHED TO MINIMUM WITHIN AN HOUR. PT BREATHING IN HIGH 20S BUT STABLE AND SATURATING MID 90S ON AEROSOL MASK AT 40%. WILL CONTINUE TO MONITOR AND ASSESS PATIENT.
--- NOTE | 2021-01-29 13:00 | NUR ---
DR. ROSE VIGIL. NOTIFIED OF PT'S URINE STATUS AND OUTPUT. PLEASED WITH URINE OUTPUT AND OKAY WITH AGOSTO COLOR OF URINE. STATED THAT ONCE PT COMPLETELY STABLE, TO HAVE A URETEROSCOPY AND LITHOTRIPSY.
--- NOTE | 2021-01-29 16:00 | NUR ---
PT STILL SATURATING IN MID 90S ON AEROSOL MASK. APPEARS COMFORTABLE AND SUCTIONING SMALL AMOUNTS OUT OF MOUTH Q2H. WILL CONTINUE TO MONITOR AND ASSESS PATIENT.
--- NOTE | 2021-01-29 19:30 | NUR ---
RECEIVED REPORT FROM [facility] PATIENT IS AWAKE BUT IS NOT FOLLOWING COMMAND ,PATIENT IS ON 30% COOL AEROSOL MASK AND PATIENT IS SATURATING 95%MONITOR IS SINUS TACH,BLOOD PRESSURE HAS BEEN STABLE PATIENT IS ON CONTINOUS FEEDING THRU HIS PEG WITH VITAL AF AT 60CC/HR AND WATER FLUSH 100CC EVERY 4 HOURS.PATIENT IS TOLERATING FEEDING WELL.
[2021-01-29] MEDS: SIMVASTATIN 20 MG TAB GT SCH (20:44)
--- NOTE | 2021-01-29 21:00 | NUR ---
BLOOD SUGAR IS 153MG/DL COVERED WITH 2 UNITS OF HUMULOG/
--- NOTE | 2021-01-29 23:00 | NUR ---
INGORMED DR CARTER ABOUT PATIENT CONDITION AND HE ORDERED OK TO DPLUIS ENRIQUEE TO TELE.
--- NOTE | 2021-01-29 23:45 | NUR ---
TRANSFERRED TO TELE ROOM 122-A BY BED.REPORT GIVEN TO JORGITO.
--- NOTE | 2021-01-29 23:50 | NUR ---
RECEIVED PT IN BED. ,TRANSFERRED FROM ICU. BEDBOUND. ON TELE MONITOR. APHASIC,JUST OPEN EYES. NO RESPIRATORY DISTRESS NOTED. O2 SAT 100%. ON O2 MASK 8L. WITH RT INTERNAL JUGULAR TRIPLE LUMEN CENTRAL LINE. WITH IVF INFUSING. GT FEEDING TO CONTINUE. FORD CATHETER DRAINING TO CLEAR BUT WITH LIGHT BLOOD TINGED URINE. RECTAL BAG IN PLACE BUT NO OUTPUT. REDNESS ON SACRAL AREA. WITH DRESSING IN PLACED. FREQ ROUNDS NEEDED. BED ON LOW POSITION. SIDE RAILS UP X2. CALL LIGHT PLACED WITHIN REACH. WILL CONTINUE TO MONITOR.
[2021-01-30] VITALS: BP 147/88
[2021-01-30] MEDS: Z-GUARD PASTE TP SCH ×2 (01:00→13:25)
[2021-01-30] MEDS: ALBUTEROL 0.083% 2.5 MG/3 ML NEBU INH SCH ×4 (01:50→20:25)
[2021-01-30] MEDS: IPRATROPIUM 0.02% 0.5 MG/2.5 ML NEBU INH SCH ×4 (01:50→20:25)
--- NOTE | 2021-01-30 02:00 | NUR ---
RT AT BEDSIDE GIVING BREATHING TREATMENT.
--- NOTE | 2021-01-30 02:13 | NUR ---
RT DECREASE O2 TO 5L BY MASK WITH O2 SAT 96%-97%.
[2021-01-30 04:00] VITALS: BP 149/83
--- NOTE | 2021-01-30 05:00 | NUR ---
REPOSITIONED FOR COMFORT. RECTAL TUBE WITH VERY SCANTY GREENISH STOOL ON THE TUBINGS.
[2021-01-30] MEDS: PIPERACILLIN/TAZOBACTAM 2.25 GM in DEXTROSE 5% 50 ML IV SCH ×2 (05:05→13:25)
[2021-01-30] MEDS: BLOOD GLUCOSE MONITORING 1 DEV DEV FS SCH ×4 (06:17→20:53)
[2021-01-30] MEDS: INSULIN LISPRO SLIDING SCALE 100 UNITS/ML VIAL SUBQ PRN ×4 (06:19→21:10)
--- NOTE | 2021-01-30 06:19 | NUR ---
BLOOD SUGAR WAS CHECKED RESULT 181. HUMALOG 2 UNITS SUBQ GIVEN COVERAGE.
[2021-01-30 06:29] LABS: CARBON DIOXIDE 24.5 mmol/L (21-32); POTASSIUM 3.5 mmol/L (3.5-5.1)
[2021-01-30 06:37] LABS: MAGNESIUM 2.3 mg/dL (1.8-2.4); PHOSPHORUS 5.6 mg/dL (2.5-4.9)
[2021-01-30 06:52] LABS: CREATININE 2.2 mg/dL (0.6-1.3)
[2021-01-30 06:59] LABS: BASOPHILS % (AUTO) 0.4 % (0.0-2.0); EOSINOPHILS # (AUTO) 0.1 K/uL (0-0.4); HEMATOCRIT 23.7 % (36-48); HEMOGLOBIN 7.7 g/dL (12.0-16.0); LYMPHOCYTES # (AUTO) 0.9 K/uL (2.5-16.5); LYMPHOCYTES % (AUTO) 7.9 % (20.5-51.1); MEAN CORPUSCULAR HEMOGLOBIN 27 pg (27-31); MEAN CORPUSCULAR HGB CONC 32 g/dL (33-37); MEAN CORPUSCULAR VOLUME 83.2 fL (80-94); MONOCYTES # (AUTO) 0.4 K/uL (0.8-1.0); MONOCYTES % (AUTO) 3.1 % (1.7-9.3); NEUTROPHILS # (AUTO) 10.2 K/uL (1.8-7.7); NEUTROPHILS % (AUTO) 87.6 % (42.2-75.2); PLATELET COUNT (AUTO) 148 K/uL (140-450); RED BLOOD CELL COUNT(AUTO) 2.85 MIL/uL (4.20-5.40); RED CELL DISTRIBUTION WIDTH 14.7 % (11.6-13.7); WHITE BLOOD COUNT (AUTO) 11.6 K/uL (4.8-10.8)
--- NOTE | 2021-01-30 07:35 | NUR ---
ENDORSED PT IN STABLE CONDITION TO AM NURSE FOR CONTINUITY OF CARE.
--- NOTE | 2021-01-30 07:37 | NUR ---
RECEIVED PATIENT FROM NIGHT NURSE. PATIENT IN BED SLEEPING, CHEST NOTED RISING. RESP EVEN AND UNLABORED ON 5L SIMPLE MASK, O2SAT 97%. NO NOTED ACUTE S/S DISTRESS AT THIS TIME. FORD NOTED DRAINING HEMATURIA. RECTAL BAG IN PLACE, NO DRAINAGE NOTED AT THIS TIME. RIJ TRIPLE INFUSING NS 75ML/HR. CONTACT ISOLATION OBSERVED. GTUBE IN PLACE WITH TUBE FEEDING INFUSING. SACRAL REDNESS REPORTED, WILL TURN AND CHANGE PATIENT FREQUENTLY. HOB ELEVATED. SAFETY MEASURES IN PLACE. CALL LIGHT WITHIN REACH. WILL CONTINUE TO MONITOR. Addendum: 01/30/21 at 1151 by Js Patel RN PATIENT APHASIC.
[2021-01-30 08:00] VITALS: BP 135/67
[2021-01-30] MEDS: NACL 0.45% 1,000 ML IV SCH ×3 (09:29→22:57)
[2021-01-30] MEDS: ASCORBIC ACID 500 MG/5 ML ORASYR GT SCH (09:30)
[2021-01-30] MEDS: GLIMEPIRIDE 2 MG TAB GT SCH (09:30)
[2021-01-30] MEDS: MULTIVITAMIN/MINERALS 1 TAB GT SCH (09:30)
[2021-01-30] MEDS: CALCITONIN (SALMON) 200 IU/ACTUATION SPR 3.7ML BTL NS SCH (09:33)
--- NOTE | 2021-01-30 09:47 | NUR ---
PATIENT IN BED SLEEPING, CHEST NOTED RISING. O2SAT 95% ON 5L SIMPLE MASK. LUNGS SOUNDS CLEAR UPPER DIMINISHED LOWER LOBES. PATIENT HAS INTERMITTENT PRODUCTIVE COUGHS, ABLE TO CLEAR SECRETIONS EFFECTIVELY. MORNING ROUTINE MEDICATIONS GIVEN VIA GTUBE. RESIDUAL CHECK 130ML. CONTINUE TUBE FEEDING ORDERED. RIJ TRIPLE INFUSING 100ML/HR. SKIN WARM TO TOUCH. HEEL PROTECTORS NOTED. HOB ELEVATED. CALL LIGHT WITHIN REACH. WILL CONTINUE TO MONITOR.
--- NOTE | 2021-01-30 11:49 | NUR ---
BLOOD GLUCOSE 198. INSULIN GIVEN PER SLIDING SCALE. PATIENT IN BED AWAKE, EYE OPENING, ABLE TO TRACK NURSING STAFF FOR BRIEF MOMENT. NO NOTED DISTRESS AT THIS TIME. CONTINUE ON 5L SIMPLE MASK. CALL LIGHT WITHIN REACH. WILL CONTINUE TO MONITOR.
[2021-01-30 12:00] VITALS: BP 139/92
--- NOTE | 2021-01-30 13:45 | NUR ---
PATIENT IN BED SLEEPING, CHEST NOTED RISING. NO ACUTE S/S DISTRESS. RESP EVEN AND UNLABORED ON 5L SIMPLE MASK, O2SAT 95%. CALL LIGHT WITHIN REACH. WILL CONTINUE TO MONITOR. Addendum: 01/30/21 at 1842 by Js Patel RN SKIN CARE PROVIDED. PATIENT TOLERATED WELL.
--- NOTE | 2021-01-30 15:33 | NUR ---
01/30/21 RD FOLLOW UP COMPLETED PLEASE REFER TO NUTRITION ASSESSMENT UNDER CARE ACTIVITY FOR ESTIMATED NUTRITIONAL NEEDS. 1. CONTINUE VITAL AF 1.2 AT 60 ML/HR. -THIS PROVIDES 1440 ML TOTAL VOLUME 1728 KCAL AND 108 GM OF PROTEIN , WHICH IS ADEQUATE TO MEET 100% OF ESTIMATED KCAL AND PROTEIN NEEDS. 2. CONTINUE WATER FLUSH OF 100 ML Q4H 3. IF RENAL FUNCTION WORSENS, CONSIDER CHANGING FORMULA TO NEPRO 1.8 @ 40 ML/HR (PROVIDES 1728 KCAL AND 78 GM OF PROTEIN) 4. RD WILL F/U 2-3 DAYS; HIGH RISK. MARIS SMILEY RD
--- NOTE | 2021-01-30 15:35 | NUR ---
NO NOTED DISTRESS AT THIS TIME. PATIENT AWAKE. EYE OPENING. RESP EVEN AND UNLABORED, O2SAT 94%. WILL CONTINUE TO MONITOR.
[2021-01-30 16:00] VITALS: BP 153/74
--- NOTE | 2021-01-30 17:28 | NUR ---
BLOOD SUGAR 216. INSULIN COVERAGE PROVIDED PER SLIDING SCALE. NEW TUBE FEEDING GIVEN. RESIDUAL CHECK 65 ML. PATIENT TOLERATING WELL. NO NOTED ACUTE S/S DISTRESS AT THIS TIME. CALL LIGHT WITHIN REACH. WILL CONTINUE TO MONITOR.
--- NOTE | 2021-01-30 19:15 | NUR ---
ENDORSED PATIENT TO NIGHT NURSE. PATIENT IN STABLE CONDITION.
--- NOTE | 2021-01-30 19:16 | NUR ---
RECEIVING PATIENT FROM AM NURSE FOR CONTINUITY OF CARE. PATIENT IS ON TELE MONITOR. APHASIC WITH EYE OPEN TO VOICE. RESPIRATORY EVEN AND UNLABORED, ON 5L O2 BY MASK, O2 SAT 98%. SKIN WARM, NON-DIAPHORETIC, SACRAL REDNESS NOTED. G-TUBE IN PLACE WITH FEEDING. IV FLUID INFUSING ON RIGHT IJ TRIPLE LUMENS NOTED. FORD CATHETER IN PLACE, DRAIN WITH BLOOD NOTED. RECTAL TUBE IN PLACE. PRECAUTION IN PLACE. FREQUENT ROUND NEED. BED IN LOW POSITION. SIDE RAIL UP. CALL LIGHT WITHIN REACH. WILL CONTINUE TO MONITOR.
[2021-01-30 20:00] VITALS: BP 109/70
[2021-01-30] MEDS: SIMVASTATIN 20 MG TAB GT SCH (20:52)
--- NOTE | 2021-01-30 21:00 | NUR ---
RESIDUAL CHECK 100 ML. HOLD FEEDING FOR NOW, WILL RE-CHECK LATER.
--- NOTE | 2021-01-30 21:10 | NUR ---
COLLECTED SPECIMEN FOR OCCULT BLOOD. SEND TO LAB.
--- NOTE | 2021-01-30 21:10 | NUR ---
BLOOD SUGAR CHECK 236, 4 UNITS HUMALOG SUBQ COVERED.
--- NOTE | 2021-01-30 23:00 | NUR ---
ROUND CHECK. PATIENT IS SLEEPING. NO SIGN OF RESPIRATORY DISTRESS NOTED. WILL CONTINUE TO MONITOR.
[2021-01-31] VITALS: BP 139/80
--- NOTE | 2021-01-31 01:00 | NUR ---
RESIDUAL CHECK 400ML. STILL HOLD FEEDING AT THIS TIME.
[2021-01-31] MEDS: Z-GUARD PASTE TP SCH ×2 (01:51→13:00)
[2021-01-31] MEDS: DEXTROSE 5% 1,000 ML IV SCH ×2 (03:36→10:52)
[2021-01-31 04:00] VITALS: BP 150/81
[2021-01-31] MEDS: NACL 0.45% 1,000 ML IV SCH ×2 (04:05→09:01)
--- NOTE | 2021-01-31 05:00 | NUR ---
RESIDUAL CHECK ON G-TUBE 300ML. FEEDING STILL ON HOLD, WILL HAVE MD MADE AWARE.
--- NOTE | 2021-01-31 06:22 | NUR ---
ROUND CHECK. PATIENT IS RESTING. CHEST RISE AND FALL NOTED. NO SIGN OF DISTRESS NOTED. WILL CONTINUE TO MONITOR.
[2021-01-31] MEDS: BLOOD GLUCOSE MONITORING 1 DEV DEV FS SCH ×4 (06:40→21:31)
[2021-01-31] MEDS: INSULIN LISPRO SLIDING SCALE 100 UNITS/ML VIAL SUBQ PRN ×2 (06:42→21:42)
[2021-01-31] MEDS: IPRATROPIUM 0.02% 0.5 MG/2.5 ML NEBU INH SCH ×3 (06:54→19:42)
[2021-01-31] MEDS: ALBUTEROL 0.083% 2.5 MG/3 ML NEBU INH SCH ×3 (06:54→19:42)
--- NOTE | 2021-01-31 07:10 | NUR ---
PATIENT ENDORSED TO DAY NURSE. PATIENT IN STABLE CONDITION.
--- NOTE | 2021-01-31 07:20 | NUR ---
RECEIVED REPORT FROM SENIOR SPECIALIST RN FOR CONTINUITY OF CARE. PATIENT RESTING IN BED IN SUPINE POSITION, HOB ELEVATED 30 DEGREE. 5L O2 VIA MASK. G TUBE FEEDING BEEN HOLD SINCE 9 PM LAST NIGHT DUE TO RESIDUAL >500ML, PER SENIOR SPECIALIST RN. FORD CATHETER IN PLACE, WITH HEMATURIA. RECTAL BAG IN PLACE, WITH NO BM OUTPUT. SACRAL REDNESS PER SENIOR SPECIALIST RN. CONTACT ISOLATION FOR MDRO BLOOD. WILL CONTINUE TO MONITOR.
[2021-01-31 08:00] VITALS: BP 129/59
[2021-01-31 08:29] LABS: BASOPHILS % (AUTO) 0.4 % (0.0-2.0); EOSINOPHILS # (AUTO) 0.1 K/uL (0-0.4); EOSINOPHILS % (AUTO) 0.7 % (0.0-4.0); HEMOGLOBIN 7.9 g/dL (12.0-16.0); LYMPHOCYTES # (AUTO) 0.9 K/uL (2.5-16.5); LYMPHOCYTES % (AUTO) 8.7 % (20.5-51.1); MEAN CORPUSCULAR HEMOGLOBIN 28 pg (27-31); MEAN CORPUSCULAR HGB CONC 33 g/dL (33-37); MEAN CORPUSCULAR VOLUME 84.7 fL (80-94); MONOCYTES # (AUTO) 0.3 K/uL (0.8-1.0); MONOCYTES % (AUTO) 3.1 % (1.7-9.3); NEUTROPHILS # (AUTO) 9.1 K/uL (1.8-7.7); NEUTROPHILS % (AUTO) 87.1 % (42.2-75.2); PLATELET COUNT (AUTO) 151 K/uL (140-450); RED BLOOD CELL COUNT(AUTO) 2.84 MIL/uL (4.20-5.40); RED CELL DISTRIBUTION WIDTH 14.8 % (11.6-13.7); WHITE BLOOD COUNT (AUTO) 10.4 K/uL (4.8-10.8)
[2021-01-31 08:43] LABS: ANION GAP 16.8 (8-16); CARBON DIOXIDE 23.3 mmol/L (21-32); POTASSIUM 3.1 mmol/L (3.5-5.1)
[2021-01-31] MEDS: ASCORBIC ACID 500 MG/5 ML ORASYR GT SCH (09:58)
[2021-01-31] MEDS: MULTIVITAMIN/MINERALS 1 TAB GT SCH (09:58)
[2021-01-31] MEDS: GLIMEPIRIDE 2 MG TAB GT SCH (09:58)
[2021-01-31] MEDS: CALCITONIN (SALMON) 200 IU/ACTUATION SPR 3.7ML BTL NS SCH (09:58)
--- NOTE | 2021-01-31 09:58 | NUR ---
SCHEDULED MEDICATIONS GIVEN VIA G TUBE. 100ML OF RESIDUAL NOTED. CONTINUE TO HOLD G TUBE FEEDING, PER DR. ANTUNEZ.
--- NOTE | 2021-01-31 10:01 | NUR ---
CHANGED PT FROM SIMPLE MASK AT 5L TO NC AT 4L PER DR. HAN TO KEEP O2 SAT ABOVE 90% PT O2 SAT IS 99%
[2021-01-31] MEDS: bisacodyL 10 MG SUPP RC PRN (10:16)
--- NOTE | 2021-01-31 10:16 | NUR ---
RECTAL TUBE REMOVED, DULCOLAX SUPPOSITORY GIVEN FOR CONSTIPATION. PATIENT TOLERATED THE PROCEDURE WELL. WILL CONTINUE TO MONITOR.
[2021-01-31] MEDS ORDERED: POTASSIUM CHLORIDE 40 MEQ, LIDOCAINE MPF 1% 25 MG in NACL 0.9% 250 ML IV SCH (10:30)
[2021-01-31] MEDS ORDERED: bisacodyL 10 MG SUPP RC SCH (11:00)
--- NOTE | 2021-01-31 11:05 | NUR ---
DR. DORAN CHECKED WITH THE PATIENT AT BEDSIDE. UPDATED PATIENT'S CONDITION TO THE DR. DORAN.
[2021-01-31 12:00] VITALS: BP 148/74
--- NOTE | 2021-01-31 12:20 | NUR ---
BLOOD GLUCOSE LEVEL 151, SINCE TUBE FEEDING BEING HOLD, INSULIN WILL NOT BE GIVEN. PATIENT'S BP 148/74. REPORT TO DR. YU.
--- NOTE | 2021-01-31 12:35 | NUR ---
NO NEW ORDER FROM DR. YU, CONTINUE TO MONITOR BP FOR NOW.
[2021-01-31 16:00] VITALS: BP 127/78
--- NOTE | 2021-01-31 16:30 | NUR ---
BS LEVEL 177, INSULIN HOLD SINCE PATIENT G TUBE FEEDING BEING HOLD. DR. YU INFORMED AND AGREED. WILL CONTINUE TO MONITOR.
--- NOTE | 2021-01-31 17:32 | NUR ---
FORD CATHETER REMOVED DUE TO THE TUBE CLOTTED WITH BLOODY MUCUS. REINSERTED NEW 16FR. STILL NO BM, BUT UNDERPAD WET WITH BLOODY SECRETIONS. REPORT TO DR. YU, CONTINUE TO HOLD G TUBE FEEDING.
--- NOTE | 2021-01-31 18:57 | NUR ---
PATIENT'S O2 SAT 99-100% WITH 4L OXYGEN VIA NC.
--- NOTE | 2021-01-31 19:30 | NUR ---
ENDORSED PATIENT TO REGIONAL PROJECT MANAGER RN FOR CONTINUITY OF CARE. PATIENT IN STABLE CONDITION WITH 3L NC. RT JUST DECREASED O2 FROM 4L TO 3L.
--- NOTE | 2021-01-31 19:30 | NUR ---
RECEIVED PT . AWAKE , NON VERBAL , NOT IN RESP. DISTRESS - O2 WNL - W/ O2 AT 4LPM/ NC . W/ LEFT IJ - IVF INFUSING WELL . PER AM NURSE G TUBE FEEDING HOLD BECAUSE OF LARGE GASTRIC RESIDUAL . LOW FITO SCALE , FALL RISK - BED ALARM ON . WILL TURN PER PROTOCOL . SAFETY MEASURES IN PLACE . PLAN OF ACRE DISCUSSED BUT POOR UNDERSTANDING DUE TO MENTAL STATUS . ON TELE MONITOR - BIT ST -FLACC 0 . WILL CONT. TO MONITOR .
[2021-01-31 20:00] VITALS: BP 122/78
[2021-01-31] MEDS: SIMVASTATIN 20 MG TAB GT SCH (21:22)
--- NOTE | 2021-01-31 21:30 | NUR ---
GASTRIC RESIDUAL ASSESS - W/ 350 CC RETURN - WILL CONT . TO MONITOR.
[2021-02-01] VITALS: BP 120/78
--- NOTE | 2021-02-01 | NUR ---
MADE ROUNDS , NO S/X OF ACUTE DISTRESS NOTED . GASTRIC RESIDUE - 150 CC . WILL CONT. TO MONITOR - SOFT ABD. STILL NO BM .
[2021-02-01] MEDS: Z-GUARD PASTE TP SCH ×2 (01:00→13:22)
[2021-02-01] MEDS: IPRATROPIUM 0.02% 0.5 MG/2.5 ML NEBU INH SCH ×4 (01:33→19:37)
[2021-02-01] MEDS: ALBUTEROL 0.083% 2.5 MG/3 ML NEBU INH SCH ×4 (01:33→19:37)
--- NOTE | 2021-02-01 02:00 | NUR ---
SLEEPING - O2 SAT WNL . ON TELE MONITOR . WILL CONT. TO MONITOR .
[2021-02-01] MEDS: DEXTROSE 5% 1,000 ML IV SCH ×2 (03:36→22:00)
[2021-02-01 04:00] VITALS: BP_SYST 142; BP_SYST 145; BP_DIAS 70; BP_DIAS 78
--- NOTE | 2021-02-01 04:00 | NUR ---
MADE ROUNDS , NO S/X OF ACUTE DISTRESS NOTED - O2 SAT WNL . GASTRIC RESIDUE - 150CC . WILL CONT. TO MONITOR .
[2021-02-01 05:31] LABS: BASOPHILS % (AUTO) 0.5 % (0.0-2.0); EOSINOPHILS % (AUTO) 0.4 % (0.0-4.0); HEMATOCRIT 21.7 % (36-48); HEMOGLOBIN 7.1 g/dL (12.0-16.0); LYMPHOCYTES # (AUTO) 0.6 K/uL (2.5-16.5); LYMPHOCYTES % (AUTO) 7.2 % (20.5-51.1); MEAN CORPUSCULAR HEMOGLOBIN 28 pg (27-31); MEAN CORPUSCULAR HGB CONC 33 g/dL (33-37); MEAN CORPUSCULAR VOLUME 84.9 fL (80-94); MONOCYTES # (AUTO) 0.5 K/uL (0.8-1.0); NEUTROPHILS # (AUTO) 7.3 K/uL (1.8-7.7); NEUTROPHILS % (AUTO) 85.9 % (42.2-75.2); PLATELET COUNT (AUTO) 157 K/uL (140-450); RED BLOOD CELL COUNT(AUTO) 2.55 MIL/uL (4.20-5.40); RED CELL DISTRIBUTION WIDTH 14.9 % (11.6-13.7); WHITE BLOOD COUNT (AUTO) 8.5 K/uL (4.8-10.8)
[2021-02-01] MEDS: INSULIN LISPRO SLIDING SCALE 100 UNITS/ML VIAL SUBQ PRN ×3 (06:26→16:40)
--- NOTE | 2021-02-01 07:28 | NUR ---
ENDORSED - PT - STABLE .
--- NOTE | 2021-02-01 07:30 | NUR ---
RECEIVE REPORT FROM NIGHT NURSE PT IS AAOX0 TUBE FEEDING PUT ON HOLD RESIDUAL VOLUME AT 650 ML, WITH FORD CATHETER 800 ML OUTPUT, RECTAL TUBE D/C 01/31/21, LATEST BLOOD SUGAR 238MG/DL, SKIN INTACT WITH SACRAL REDNESS, IV INTACT ON RIGHT IJ TRIPPLE LUMEN WITH D5 WATER AT 75CC, RECTAL SUPPOSITORY GIVEN 01/31/21, ON 4LPM NC SATURATION AT 98%, FOR SOCIAL SERVICE [facility] EVALUATION. SAFETY MEASURES IN PLACE AND CALL LIGHT WITHIN REACH. WILL CONTINUE TO MONITOR.
[2021-02-01] MEDS: BLOOD GLUCOSE MONITORING 1 DEV DEV FS SCH ×4 (07:44→21:00)
[2021-02-01 08:00] VITALS: BP 143/69
[2021-02-01] MEDS: GLIMEPIRIDE 2 MG TAB GT SCH (09:14)
[2021-02-01] MEDS: ASCORBIC ACID 500 MG/5 ML ORASYR GT SCH (09:14)
--- NOTE | 2021-02-01 09:14 | NUR ---
MEDICATION DUE GIVEN, RESIDUAL VOLUME 75ML. OXYGEN AT 2LPM SATURATION AT 98%.
[2021-02-01] MEDS: MULTIVITAMIN/MINERALS 1 TAB GT SCH (09:15)
[2021-02-01] MEDS: CALCITONIN (SALMON) 200 IU/ACTUATION SPR 3.7ML BTL NS SCH (09:16)
[2021-02-01] MEDS ORDERED: POTASSIUM CHLORIDE 20% 40 MEQ/15 ML UDC GT SCH (11:00)
--- NOTE | 2021-02-01 11:18 | NUR ---
POTASSIUM CHLORIDE 60 MEQ GT GIVEN AND CHECK BLOOD SUGAR 201MG/DL INSULIN COVERAGE GIVEN.
--- NOTE | 2021-02-01 11:30 | NUR ---
PATIENT COVID 19 RAPID TEST NEGATIVE.
[2021-02-01 12:00] VITALS: BP 145/67
--- NOTE | 2021-02-01 12:10 | NUR ---
CONSENT FOR CYSTOSCOPY , BILATERAL URETEROSCOPY, LASER LITHOTRIPSY, BILATERAL STENT EXCHANGE GIVEN BY SISTER LEWIS GILLESPIE THROUGH TELEPHONE CONSENT().
--- NOTE | 2021-02-01 13:58 | NUR ---
02/01/21 RD FOLLOW UP COMPLETED PLEASE REFER TO NUTRITION ASSESSMENT UNDER CARE ACTIVITY FOR ESTIMATED NUTRITIONAL NEEDS. 1. TO AVOID RE-FEEDING SYNDROME, RESTART TUBE FEEDING AT 20 ML/HR AND INCREASE BY 20 ML/HR Q4H UNTIL GOAL OF 60 ML/HR IS REACHED. VITAL AF 1.2 @ 60 ML/HR -THIS PROVIDES 1440 ML TOTAL VOLUME 1728 KCAL AND 108 GM OF PROTEIN , WHICH IS ADEQUATE TO MEET 100% OF ESTIMATED KCAL AND PROTEIN NEEDS. 2. CONTINUE WATER FLUSH OF [address] WILL F/U 2-3 DAYS; HIGH RISK MARIS SMILEY RD
--- NOTE | 2021-02-01 15:05 | NUR ---
TUBE FEEDING RESUME VITAL AF 1.2 RATE 60 ML 100 WATER FLUSH Q 4H. STARTED AT A RATE OF 20 ML AND INCREASE AFTER 1 HOUR.
[2021-02-01 16:00] VITALS: BP 158/70
--- NOTE | 2021-02-01 16:30 | NUR ---
blood sugar 190 mg/dl insulin coverage given.
--- NOTE | 2021-02-01 17:30 | NUR ---
INCREASE RATE FOR TUBE FEEDING AT 40MLS.
--- NOTE | 2021-02-01 19:00 | NUR ---
PATIENT RECEIVED IN BED, PT IS ALERT AND ORIENTED X 0. PT IS ON 4 L NC, BREATHING EVEN AND UNLABORED, SATURATING 94%. PT REMAINS NPO. PT IS SR/ST ON THE GOLF BALL INSPECTOR AT THIS TIME. R IJ CENTRAL LINE AND L H 22 G NOTED. FORD CATHETER IN PLACE DRAINING TO GRAVITY WITH ADEQUATE OUTPUT. SKIN IS INTACT, SACRAL REDNESS NOTED. OPTIFOAM DRESSING CHANGED MAXIMAL CARE RENDERED. PATIENT REQUIRES 2 PERSON ASSISTANCE. SACRUM REDDNESS NOTED. CARDIAC SR, ST. PENDING STORE GROUP MANAGER EVALUATION FOR DISCHARGE TO [facility]. AM PLAN FOR PATIENT SURGERY IN AM WITH DR. SCHNEIDER R/T CYSTOSCOPY BILATERAL UROSCOPY, BILATERAL STENT EXCHANGE. NO ACUTE DISTRESS NOTED. ONGOING CARE RENDERED.
--- NOTE | 2021-02-01 19:27 | NUR ---
ENDORSED TO NIGHT NURSE FOR CONTINUITY OF CARE. OT IS STABLE Addendum: 02/01/21 at 1929 by Jennifer Boles RN INSTRUCTED NIGHT NURSE TO HOLD TUBE FEEDING PATIENT IS ON NPO AFTER MIDNIGHT PER DR ROSE ORDER.
[2021-02-01 20:00] VITALS: BP 144/76
[2021-02-01] MEDS: SIMVASTATIN 20 MG TAB GT SCH (22:01)
[2021-02-02] VITALS: BP 128/76
--- NOTE | 2021-02-02 | NUR ---
PATIENT SLEEPING DURING ROUNDING. FALL AND SAFETY PRECAUTIONARY MEASURES MAINTAINED. PATIENT TUBE FEEDING ON HOLD. MAXIMAL CARE RENDERED. RESPIRATIONS EVEN AND NONLARORED. NOTED. NO ACUTE DISTRESS.
[2021-02-02] MEDS: IPRATROPIUM 0.02% 0.5 MG/2.5 ML NEBU INH SCH ×4 (00:39→19:00)
[2021-02-02] MEDS: ALBUTEROL 0.083% 2.5 MG/3 ML NEBU INH SCH ×4 (00:40→19:00)
[2021-02-02] MEDS: Z-GUARD PASTE TP SCH ×2 (01:03→13:47)
[2021-02-02 04:00] VITALS: BP 124/78
[2021-02-02] MEDS: DEXTROSE 5% 1,000 ML IV SCH ×2 (04:40→11:10)
--- NOTE | 2021-02-02 06:50 | NUR ---
PATIENT TRANSPORTED TO SURGICAL UNIT VIA BED ACCOMPANIED BY RN FOR CYSTOSCOPY WITH BILATERAL UROSCOPY LASERTRIPSY URETHRAL SHUNT STENT EXCHANGE BY TRANSPORTER, RN AND ATTENDANT. PATIENT ALERT X 0 - 1. HIGH [employer] TUTOR NOTIFIED. NO ACUTE DISTRESS NOTED.
[2021-02-02] MEDS: BLOOD GLUCOSE MONITORING 1 DEV DEV FS SCH ×6 (07:30→20:28)
[2021-02-02 07:31] LABS: BASOPHILS % (AUTO) 0.4 % (0.0-2.0); EOSINOPHILS # (AUTO) 0.2 K/uL (0-0.4); EOSINOPHILS % (AUTO) 1.7 % (0.0-4.0); HEMOGLOBIN 7.9 g/dL (12.0-16.0); LYMPHOCYTES # (AUTO) 0.8 K/uL (2.5-16.5); LYMPHOCYTES % (AUTO) 7.9 % (20.5-51.1); MEAN CORPUSCULAR HEMOGLOBIN 28 pg (27-31); MEAN CORPUSCULAR HGB CONC 33 g/dL (33-37); MEAN CORPUSCULAR VOLUME 84.8 fL (80-94); MONOCYTES # (AUTO) 0.6 K/uL (0.8-1.0); MONOCYTES % (AUTO) 5.8 % (1.7-9.3); NEUTROPHILS # (AUTO) 8.8 K/uL (1.8-7.7); NEUTROPHILS % (AUTO) 84.2 % (42.2-75.2); PLATELET COUNT (AUTO) 170 K/uL (140-450); RED BLOOD CELL COUNT(AUTO) 2.83 MIL/uL (4.20-5.40); RED CELL DISTRIBUTION WIDTH 14.9 % (11.6-13.7); WHITE BLOOD COUNT (AUTO) 10.4 K/uL (4.8-10.8)
[2021-02-02 07:41] LABS: ANION GAP 14.1 (8-16); CARBON DIOXIDE 23.1 mmol/L (21-32); CREATININE 1.8 mg/dL (0.6-1.3); POTASSIUM 3.2 mmol/L (3.5-5.1)
[2021-02-02 09:00] VITALS: BP 139/74
--- NOTE | 2021-02-02 09:00 | NUR ---
pt is back from the operating room. the procedures are not because pt has abnormal.. ppt is awake and alert but non verbal. v/s are stable.
[2021-02-02] MEDS: ASCORBIC ACID 500 MG/5 ML ORASYR GT SCH (09:42)
[2021-02-02] MEDS: GLIMEPIRIDE 2 MG TAB GT SCH (09:44)
[2021-02-02] MEDS: MULTIVITAMIN/MINERALS 1 TAB GT SCH (09:45)
[2021-02-02] MEDS: INSULIN LISPRO SLIDING SCALE 100 UNITS/ML VIAL SUBQ PRN ×3 (10:28→20:30)
[2021-02-02 12:00] VITALS: BP 142/69
[2021-02-02] MEDS ORDERED: POTASSIUM CHLORIDE 10 MEQ TABER PO SCH (12:15)
[2021-02-02] MEDS: NACL 0.45% 1,000 ML IV SCH ×2 (12:15→20:33)
[2021-02-02 16:00] VITALS: BP 145/64
--- NOTE | 2021-02-02 19:15 | NUR ---
RECEIVING PATIENT FROM DAY SHIFT FOR CONTINUITY OF CARE. PATIENT ON TELE MONITOR AND CONTACT ISOLATION. APHASIC. ON 2L NC, O2 SAT 99%, RESPIRATORY EVEN AND UNLABORED. G-TUBE IN PLACE, VITAL 1.2 RUNNING 60ML/HR, WATER FLUSH 100ML Q6H. RIGHT IJ TRIPLE LUMENS, FLUID IS INFUSING. FORD IN PLACE, ORANGE CLEAR URINE. SKIN WARM, DRY, NON-DIAPHORETIC, REDNESS NOTED ON SACRAL. PLAN OF CARE DISCUSSED. CONTACT PRECAUTION IN PLACE. CALL LIGHT WITHIN REACH. WILL CONTINUE TO MONITOR.
--- NOTE | 2021-02-02 19:42 | NUR ---
1930 PATIENT GIVEN HHNTX WITH ALBUTEROL AND ATROVENT. PATIENT SEEMS TO HAVE CLEAR BREATH SOUNDS AND SATS 0N 2LNC ARE 100% NO SOB NOTED
[2021-02-02 20:00] VITALS: BP 138/86
--- NOTE | 2021-02-02 20:28 | NUR ---
BLOOD SUGAR CHECK 153, 2 UNITS OF INSULIN WAS GIVEN TO COVER. PATIENT TOLERATED WELL. PATIENT IS RESTING IN BED WITH EYES OPEN. NO SIGN OF RESPIRATORY DISTRESS NOTED. CALL LIGHT WITHIN REACH. WILL CONTINUE TO MONITOR.
--- NOTE | 2021-02-02 20:28 | NUR ---
RESIDUAL CHECK 300CC. HOLD FEEDING ORDERED. HOB ELEVATED. PATIENT IS AWAKE. NO SIGN OF RESPIRATORY DISTRESS NOTED. WILL CONTINUE TO MONITOR.
[2021-02-02] MEDS: SIMVASTATIN 20 MG TAB GT SCH (20:29)
[2021-02-03] VITALS: BP 134/74
--- NOTE | 2021-02-03 | NUR ---
RE-CHECK RESIDUAL 250CC, FEEDING STILL HOLD.HOB ELEVATED. VITAL SIGNS STABLE. PATIENT AWAKE, FLACC 0. WILL CONTINUE TO MONITOR.
[2021-02-03] MEDS: Z-GUARD PASTE TP SCH ×2 (01:19→13:14)
[2021-02-03] MEDS: ALBUTEROL SULFATE/IPRATROPIU 3 ML SOL IH SCH ×4 (01:25→20:12)
--- NOTE | 2021-02-03 02:00 | NUR ---
ROUND CHECK. PATIENT IS RESTING IN BED. NO SIGN OF RESPIRATORY DISTRESS NOTED. HOB ELEVATED. CALL LIGHT WITHIN REACH. WILL CONTINUE TO MONITOR.
[2021-02-03 04:00] VITALS: BP 144/71
--- NOTE | 2021-02-03 04:00 | NUR ---
RE-CHECK RESIDUAL 100CC. RE-START FEEDING ORDERED. HOB ELEVATED. PATIENT IS AWAKE, RESTING IN BED. WILL CONTINUE TO MONITOR.
[2021-02-03 05:50] LABS: ANION GAP 11.8 (8-16); CARBON DIOXIDE 26.6 mmol/L (21-32); CREATININE 1.6 mg/dL (0.6-1.3); POTASSIUM 3.4 mmol/L (3.5-5.1)
[2021-02-03 06:00] LABS: MAGNESIUM 1.8 mg/dL (1.8-2.4); PHOSPHORUS 4.1 mg/dL (2.5-4.9)
[2021-02-03 06:33] LABS: BASOPHILS # (AUTO) 0.1 K/uL (0.00-0.22); BASOPHILS % (AUTO) 0.5 % (0.0-2.0); EOSINOPHILS # (AUTO) 0.3 K/uL (0-0.4); EOSINOPHILS % (AUTO) 2.1 % (0.0-4.0); HEMATOCRIT 23.5 % (36-48); HEMOGLOBIN 7.6 g/dL (12.0-16.0); LYMPHOCYTES # (AUTO) 0.8 K/uL (2.5-16.5); LYMPHOCYTES % (AUTO) 6.4 % (20.5-51.1); MEAN CORPUSCULAR HEMOGLOBIN 28 pg (27-31); MEAN CORPUSCULAR HGB CONC 33 g/dL (33-37); MEAN CORPUSCULAR VOLUME 84.9 fL (80-94); MONOCYTES # (AUTO) 0.6 K/uL (0.8-1.0); MONOCYTES % (AUTO) 4.5 % (1.7-9.3); NEUTROPHILS # (AUTO) 10.9 K/uL (1.8-7.7); NEUTROPHILS % (AUTO) 86.5 % (42.2-75.2); PLATELET COUNT (AUTO) 213 K/uL (140-450); RED BLOOD CELL COUNT(AUTO) 2.76 MIL/uL (4.20-5.40); RED CELL DISTRIBUTION WIDTH 14.7 % (11.6-13.7); WHITE BLOOD COUNT (AUTO) 12.6 K/uL (4.8-10.8)
[2021-02-03] MEDS: BLOOD GLUCOSE MONITORING 1 DEV DEV FS SCH ×4 (06:50→20:51)
--- NOTE | 2021-02-03 07:15 | NUR ---
ENDORSED PATIENT TO DAY SHIFT NURSE FOR CONTINUITY OF CARE. PATIENT IS NO SIGN OF DISTRESS NOTED. O2 SAT IS 99%. PATIENT IS STABLE.
--- NOTE | 2021-02-03 07:17 | NUR ---
RECEIVED REPORT FROM NIGHT NURSE PT IS APHASIC ON 2LPM NC OXYGEN SATURATION AT 985 LATEST BLOOD SUGAR 136 MG/DL ON TUBE FEEDING AT 60 ML 100ML Q4H WATERFLUSH, WITH FORD CATHETER, WITH IV INTACT ON RIGHT IJ TRIPPLE LUMEN, WITH SACRAL REDNESS. KDUR GIVEN YESTERDAY. SAFETY MEASURES IN PLACE AND CALL LIGHT WITHIN REACH. WILL CONTINUE TO MONITOR.
[2021-02-03] MEDS: MULTIVITAMIN/MINERALS 1 TAB GT SCH (09:36)
[2021-02-03] MEDS: ASCORBIC ACID 500 MG/5 ML ORASYR GT SCH (09:36)
[2021-02-03] MEDS: GLIMEPIRIDE 2 MG TAB GT SCH (09:37)
--- NOTE | 2021-02-03 10:03 | NUR ---
MEDICATION DUE IS GIVEN AND RESIDUAL VOLUME AT 950 ML TUBE FEEDING IS PUT ON HOLD.
--- NOTE | 2021-02-03 10:31 | NUR ---
02/03/21 FOLLOW UP COMPLETED PLEASE REFER TO NUTRITION PROGRESS NOTE UNDER CARE ACTIVITY FOR ESTIMATED NUTRITION NEEDS. RD RECOMMENDATIONS: 1. RECOMMEND REGLAN TO PROMOTE GASTRIC MOTILITY AND RESTART CONTINUE VITAL AF 1.2 @ 20 ML/HR AND INCREASE TOLERATED TO GO AL RATE OF 60 ML/HR. -THIS PROVIDES 1440 ML TOTAL VOLUME 1728 KCAL AND 108 GM OF PROTEIN, WHICH IS ADEQUATE TO MEET 100% OF ESTIMATED KCAL AND PROTEIN NEEDS. 2. TO AVOID RE-FEEDING SYNDROME, CONSIDER DECREASING TUBE FEEDING RATE TO 20 ML/HR AND INCREASE BY 20 ML/HR Q4H UNTIL GOAL OF 60 ML/HR. -CONSIDER MONITORING POTASSIUM, MAGNESIUM, AND PHOSPHORUS 3. CONTINUE WATER FLUSH OF 100 ML Q4H 4. IF PT CONTINUES TO HAVE HIGH RESIDUALS, RECOMMEND SWITCHING TUBE FEEDING FORMULA TO GLUCERNA 1.2 AT 60 ML/HR, WHICH PROVIDES 1440 ML TOTAL VOLUME, 1728 KCAL, AND 86 GM OF PROTEIN (ADEQUATE TO MEET NUTRITIONAL NEEDS). 5. RD WILL F/U 2-3 DAYS; HIGH RISK EDMUND THOMAS RD
[2021-02-03 11:05] VITALS: BP 134/80
--- NOTE | 2021-02-03 11:30 | NUR ---
BLOOD SUGAR 168 MG/DL INSULIN COVERAGE GIVEN.
[2021-02-03] MEDS: INSULIN LISPRO SLIDING SCALE 100 UNITS/ML VIAL SUBQ PRN (11:51)
[2021-02-03] MEDS ORDERED: POTASSIUM CHLORIDE 20% 40 MEQ/15 ML UDC GT SCH (12:46)
--- NOTE | 2021-02-03 13:00 | NUR ---
POTASSIUM CHLORIDE 40 MEQ GIVEN PER DOCTORS ORDER PT POTASSIUM 3.4 RESIDUAL VOLUME 720 ML.
--- NOTE | 2021-02-03 13:13 | NUR ---
TUBE FEEDING WATER FLUSH CHANGE FROM 100 ML Q4H TO 150 ML Q4H PER DOCTOR NAIMI ORDER.
--- NOTE | 2021-02-03 14:45 | NUR ---
TUBE FEEDING ON HOLD DR LIN AWARE.
[2021-02-03 16:00] VITALS: BP 113/77
--- NOTE | 2021-02-03 16:09 | NUR ---
BLOOD SUGAR 130 MG/DL NO INSULIN COVERAGE.
[2021-02-03] MEDS: NACL 0.45% 1,000 ML IV SCH (16:51)
[2021-02-03] MEDS: METOCLOPRAMIDE 10 MG/2 ML INJ VIAL IVP SCH ×2 (17:24→23:57)
--- NOTE | 2021-02-03 17:29 | NUR ---
MEDICATION DUE GIVEN PATIENT TOLERATED WELL.WILL CONTINUE TO MONITOR.
--- NOTE | 2021-02-03 18:08 | NUR ---
CALLED RESPIRATORY THERAPIST PT KEEPS ON COUGHING, SUCTIONED DONE.
--- NOTE | 2021-02-03 19:25 | NUR ---
ENDORSED TO NIGHT NURSE FOR CONTINUITY OF CARE. PT IS STABLE
--- NOTE | 2021-02-03 19:30 | NUR ---
PATIENT CARE AND REPORT RECEIVED FROM DAYSHIFT RN. UPON ENTERING THE PATIENT ROOM, LAYING SEMIFOWLERS IN A POSITION OF COMFORT. PATIENT EYES OPEN AND ALERT BUT NOT TRACKING WITH EYES. A +O x0, NORMAL FOR THE PATIENT BASELINE AND PATIENT MEDICAL HISTORY. PATIENT CURRENTLY ON NASAL CANNULA 2 LPM, NO SIGNS OF DISTRESS NOTED. PATIENT DIET ORDERED VITAL AF 1.2, HIGH RESIDUALS NOTED, GIVE TOLERATED AND PER ORDER. PATIENT IV ACCESS SITES INCLUDE RIGHT IJ TRIPLE LUMEN, INTACT, PATENT AND DRY DRESSING. IV DRIPS CURRENTLY RUNNING INCLUDE 1/2 NS AT 70 ML/HR. SKINS SHOW SACRAL REDNESS. PATIENT BEGIN OFFLOADED FROM PRESSURE POINTS WITH USE OF PILLOWS AND FREQUENT REPOSITIONING. PATIENT BED LOCKED AND LOWERED INTO A POSITION OF SAFETY AND COMFORT. WILL CONTINUE TO CLOSELY MONITOR AND FREQUENTLY ROUND THROUGHOUT THE SHIFT.
[2021-02-03 20:00] VITALS: BP 143/71
[2021-02-03] MEDS: SIMVASTATIN 20 MG TAB GT SCH (20:46)
--- NOTE | 2021-02-03 20:51 | NUR ---
BLOOD SUGAR WAS CHECKED RESULT 124. NO INSULIN NEEDED. GT RESIDUAL WAS CHECKED 300ML. STILL PUT FEEDING ON HOLD. WILL RECHECKED AGAIN .
--- NOTE | 2021-02-03 22:00 | NUR ---
MADE ROUNDS. PT IS AWAKE. APHASIC. WITH O2 2L/NC SAT 98%. WILL CONTINUE TO MONITOR.
--- NOTE | 2021-02-03 23:00 | NUR ---
PAGED DR. YU TO VERIFY DIET ORDER THAT STILL NPO . HE SAID NO PROCEDURE SO PUT BACK TO GT FEEDING DIET. HE WAS MADE AWARE THAT WE HAVE BEEN HOLDING THE FEEDING DUE TO LARGE RESIDUAL
--- NOTE | 2021-02-03 23:52 | NUR ---
HAD A MODERATE SOFT BM. CLEANED AND KEPT DRY. APPLIED Z GUARD TO SACRAL AREA. REPOSITIONED FOR COMFORT. NO RESIDUAL TAKEN FROM THE GT THIS TIME. RESTARTED THE FEEDING IN THE ORDERED RATE. WILL CONTINUE TO MONITOR.
[2021-02-04] VITALS: BP_SYST 130; BP_SYST 138; BP_DIAS 70; BP_DIAS 76
--- NOTE | 2021-02-04 00:45 | NUR ---
PT NOTED WITH UNPRODUCTIVE INTERMITTENT WET COUGH, WILL ALERT RT AND REMIND THEM TO GIVEN NEB TREATMENT DUE AT 1 AM SPOKE WITH ANYI RT AND SHE IS AWAKE OF NEB TREATMENT ORDER. ALL FALLS AND CONTACT PRECAUTIONS IN PLACE.
[2021-02-04] MEDS: Z-GUARD PASTE TP SCH ×2 (01:09→12:52)
--- NOTE | 2021-02-04 01:52 | NUR ---
PT WITH OCCASIONAL NON PRODUCTIVE COUGH. O2 SAT 100% WITH O2 2L/NC.
[2021-02-04] MEDS: ALBUTEROL SULFATE/IPRATROPIU 3 ML SOL IH SCH ×4 (03:02→19:25)
[2021-02-04] MEDS: NACL 0.45% 1,000 ML IV SCH ×2 (03:03→17:29)
--- NOTE | 2021-02-04 03:53 | NUR ---
SLEEPING AT THIS TIME. NO S/S OF ANY DISTRESS NOTED. O2 SAT 100%.
[2021-02-04 04:00] VITALS: BP 103/48
--- NOTE | 2021-02-04 04:15 | NUR ---
CHECKED GT FEEDING RESIDUAL 280 . HOLD FEEDING PER PROTOCOL. WILL RECHECK AGAIN LATER.
--- NOTE | 2021-02-04 06:00 | NUR ---
G-TUBE CHECKED RESIDUAL AGAIN THIS AM 250 TAKEN. STILL HOLD FEEDING AT THIS TIME.
[2021-02-04] MEDS: BLOOD GLUCOSE MONITORING 1 DEV DEV FS SCH ×4 (06:01→20:38)
[2021-02-04] MEDS: METOCLOPRAMIDE 10 MG/2 ML INJ VIAL IVP SCH ×3 (06:01→18:39)
[2021-02-04] MEDS: INSULIN LISPRO SLIDING SCALE 100 UNITS/ML VIAL SUBQ PRN (06:04)
[2021-02-04 06:24] LABS: BASOPHILS # (AUTO) 0.1 K/uL (0.00-0.22); BASOPHILS % (AUTO) 0.6 % (0.0-2.0); EOSINOPHILS # (AUTO) 0.1 K/uL (0-0.4); EOSINOPHILS % (AUTO) 1.3 % (0.0-4.0); HEMATOCRIT 22.3 % (36-48); HEMOGLOBIN 7.3 g/dL (12.0-16.0); LYMPHOCYTES # (AUTO) 0.8 K/uL (2.5-16.5); MEAN CORPUSCULAR HEMOGLOBIN 28 pg (27-31); MEAN CORPUSCULAR HGB CONC 33 g/dL (33-37); MEAN CORPUSCULAR VOLUME 86.8 fL (80-94); MONOCYTES # (AUTO) 0.4 K/uL (0.8-1.0); MONOCYTES % (AUTO) 4.2 % (1.7-9.3); NEUTROPHILS # (AUTO) 8.5 K/uL (1.8-7.7); PLATELET COUNT (AUTO) 215 K/uL (140-450); RED BLOOD CELL COUNT(AUTO) 2.57 MIL/uL (4.20-5.40); RED CELL DISTRIBUTION WIDTH 14.9 % (11.6-13.7); WHITE BLOOD COUNT (AUTO) 9.9 K/uL (4.8-10.8)
[2021-02-04 06:33] LABS: ANION GAP 12.3 (8-16); CARBON DIOXIDE 24.7 mmol/L (21-32); CREATININE 1.5 mg/dL (0.6-1.3)
[2021-02-04 07:04] LABS: LYMPHOCYTES % (AUTO) 7.9 % (20.5-51.1)
--- NOTE | 2021-02-04 07:20 | NUR ---
RECEIVED REPORT FROM NIGHT NURSE FOR CONTINUITY OF CARE. PT IS APHASIC. PT ON 2L OXYGEN, NO SIGNS OF DISTRESS NOTED. PT HAS RIGHT IJ INFUSING 1/2NS AT 70ML/H. FORD CATH IN PLACE. PT HAS SACRAL REDNESS WITH OPTIFOAM IN PLACE. PT HAS BILATERAL HEEL PROTECTORS. BILATERAL UA BRUISING. PT G-TUBE ON HOLD RESIDUAL WAS HIGH. SAFETY MEASURES IN PLACE, PT ON CONTACT FOR MDRO IN BLOOD. WILL CONTINUE TO MONITOR
--- NOTE | 2021-02-04 07:25 | NUR ---
ENDORSED PT IN STABLE CONDITION TO AM NURSE.
[2021-02-04 08:00] VITALS: BP 128/61
[2021-02-04] MEDS: MULTIVITAMIN/MINERALS 1 TAB GT SCH (08:52)
[2021-02-04] MEDS: ASCORBIC ACID 500 MG/5 ML ORASYR GT SCH (08:52)
[2021-02-04] MEDS: GLIMEPIRIDE 2 MG TAB GT SCH (08:53)
--- NOTE | 2021-02-04 09:00 | NUR ---
ADMINISTERED SCHEDULED MEDICATION, MEDIATION EDUCATION PROVIDED. PT TOLERATED WELL. G-TUBE RESIDUAL AT 5ML. RESUMED FEEDING AT 30ML/H, WILL MONITOR FOR RESIDUAL. PT IS STABLE, O2 AT 99. WILL CONTINUE TO MONITOR.
--- NOTE | 2021-02-04 11:54 | NUR ---
ROUNDING ON PT, PT BLOOD GLUCOSE 110, PT BEING CHANGED BY DENSITY CONTROL PUNCHER. PT IS STABLE, WILL CONTINUE TO MONITOR.
[2021-02-04 12:00] VITALS: BP 140/45
--- NOTE | 2021-02-04 12:19 | NUR ---
HOLDING FEEDING, PT HAS 120 RESIDUAL.
--- NOTE | 2021-02-04 12:57 | NUR ---
ADMINISTERED SCHEDULED MEDICATION, MEDICATION EDUCATION PROVIDED. PT TOLERATED WELL. PT IS RECEIVING BREATHING TREATMENT, WILL CONTINUE TO MONITOR.
--- NOTE | 2021-02-04 15:00 | NUR ---
HOLDING FEEDING, RESIDUAL IS 150ML/H, PT NOT TOLERATING FEEDING. WILL NOTIFY
[2021-02-04 16:00] VITALS: BP 113/48
--- NOTE | 2021-02-04 17:34 | NUR ---
ADMINISTERED SCHEDULED FLUIDS, PT TOLERATED WELL, WILL CONTINUE TO MONITOR
--- NOTE | 2021-02-04 18:49 | NUR ---
ADMINISTERED SCHEDULED MEDICATION, MEDICATION EDUCATION PROVIDED. PT TOLERATED WELL. PT HAS G-TUBE RESIDUAL 190, HOLDING FEEDINGS. WILL CONTINUE TO MONITOR.
--- NOTE | 2021-02-04 19:25 | NUR ---
ENDORSE PT TO NIGHT NURSE FOR CONTINUITY OF CARE.
[2021-02-04 20:00] VITALS: BP 132/52
--- NOTE | 2021-02-04 20:00 | NUR ---
RECEIVED REPORT AT BEDSIDE FROM CHAD RN DAYSHIFT NURSE FOR CONTINUITY OF CARE, PT IN STABLE CONDITION. PT IN BED HOB UP 45% SHE IS AOX1 AWAKE AND ALERT BUT APHASIAC. SHE IS ON 2 LITERS VIA N/C AND STATING AT 100%. PT IS BEDBOUND SKIN COLOR IS PALE BUT WARM TO TOUCH. SHE HAS PLUS 3 PITTING EDEMA AND HAS HEEL PROTECTORS ON. PT NOTED WITH SACRAL REDNESS. SHE HAS RIJ TRIPLE LUMEN INTACT AND RUNNING 1/2 NORMAL SALINE AT 70MLS/HR. PT ALSO HAS G TUBE INTACT FEEDING IS OFF DUE TO HIGH RESIDUALS. PT RESIDUAL CHECKED AND IT WAS 50MLS. WILL RECHECK RESIDUAL LATER. ALL FALLS PRECAUTIONS IN PLACE. V/S FOLLOWS: T 97.0 P 103 R 16 B/P 132/52 02 100%. ALL CONTACT PRECAUTIONS IN PLACE.
[2021-02-04] MEDS: SIMVASTATIN 20 MG TAB GT SCH (20:37)
--- NOTE | 2021-02-04 21:30 | NUR ---
PT HAD RECEIVED HER SCHEDULED NEB TREATMENT. ORAL CARE PROVIDED. PT GIVEN DUE MEDS OF ZOCOR VIA G TUBE. PT CONTINUES TO HAVE HIGH RESIDUALS. LUNG SOUNDS ARE COARSE WITH RHONCI. 1/2 NS CONTINUES AT 70MLS/HR ORDERED. FINGERSTICK IS 120 NO HUMALOG COVERAGE NEEDED. ALL CONTACT AND FALLS PRECAUTIONS IN PLACE.
--- NOTE | 2021-02-04 22:30 | NUR ---
PT TURNED, CHANGED AND REPOSITIONED IN BED. ALL ORDERED PRECAUTIONS IN PLACE.
[2021-02-05] VITALS: BP 138/62
--- NOTE | 2021-02-05 00:30 | NUR ---
PT TURNED AND REPOSITIONED IN BED ORAL CARE PROVIDED V/S FOLLOWS: T 98.0 P 97 R 20 B/P 111/54 02 94% FALLS AND CONTACT PRECAUTIONS IN PLACE.
[2021-02-05] MEDS: METOCLOPRAMIDE 10 MG/2 ML INJ VIAL IVP SCH ×5 (00:47→23:35)
[2021-02-05] MEDS: ALBUTEROL SULFATE/IPRATROPIU 3 ML SOL IH SCH ×4 (01:00→19:18)
--- NOTE | 2021-02-05 01:15 | NUR ---
RT GAVE PT NEB TREATMENT AND ORAL CARE.
--- NOTE | 2021-02-05 02:15 | NUR ---
PT IN BED AWAKE IN BED HOB UP 45% PT CONTINUES ON 2 LITERS VIA N/C. PT CONTINUES TO HAVE INTERMITTENT UNPRODUCTIVE COUGH. ALL FALLS AND CONTACT PRECAUTIONS IN PLACE.
[2021-02-05] MEDS: Z-GUARD PASTE TP SCH ×2 (03:52→13:00)
[2021-02-05 04:00] VITALS: BP 149/70
--- NOTE | 2021-02-05 04:30 | NUR ---
PT WAS TURNED, CHANGED AND REPOSITIONED IN BED ORAL CARE PROVIDED. NEW CENTRAL LINE DRESSING PROVIDED.
[2021-02-05 05:59] LABS: ANION GAP 17.2 (8-16); CARBON DIOXIDE 21.3 mmol/L (21-32); CREATININE 1.4 mg/dL (0.6-1.3); POTASSIUM 3.5 mmol/L (3.5-5.1)
[2021-02-05] MEDS: BLOOD GLUCOSE MONITORING 1 DEV DEV FS SCH ×4 (06:33→21:15)
--- NOTE | 2021-02-05 06:34 | NUR ---
NEW BAG OF 1/2 NS REPLACED AAS WELL NEW BOTTLE OF TUE FEED. PT HAS NO RESIDUAL NOTED STARTED OFF AT 30MLS/HR FINGERSTICK IS 130. NO HUMALOG COVERAGE NEEDED.
--- NOTE | 2021-02-05 07:25 | NUR ---
RECEIVED REPORT FROM HEAD GRINDER RN FOR CONTINUITY OF CARE. PATIENT RESTING IN BED, AWAKE, NOT ABLE TO MAKE NEEDS KNOWN. ON 2L OXYGEN VIA NC. WITH INTERMITTENT DRY COUGH. G TUBE FEEDING WAS HOLD YESTERDAY DURING DAYS SHIFT DUE TO RESIDUAL > 190ML, FEEDING RESUMED AROUND 0600 PER HEAD GRINDER. IV TO RIGHT IJ INFUSING 1/2 NS@ 70ML/HR. INCONTINENT WITH BLADDER/BOWEL. SAFETY MEASURES IN PLACE, WILL CONTINUE TO MONITOR.
[2021-02-05 09:06] LABS: HEMATOCRIT 24.7 % (36-48); HEMOGLOBIN 7.8 g/dL (12.0-16.0); MEAN CORPUSCULAR HEMOGLOBIN 28 pg (27-31); MEAN CORPUSCULAR HGB CONC 32 g/dL (33-37); MEAN CORPUSCULAR VOLUME 87.5 fL (80-94); PLATELET COUNT (AUTO) 282 K/uL (140-450); RED BLOOD CELL COUNT(AUTO) 2.82 MIL/uL (4.20-5.40); RED CELL DISTRIBUTION WIDTH 15.6 % (11.6-13.7); WHITE BLOOD COUNT (AUTO) 17.7 K/uL (4.8-10.8)
[2021-02-05] MEDS: ASCORBIC ACID 500 MG/5 ML ORASYR GT SCH (09:25)
[2021-02-05] MEDS: GLIMEPIRIDE 2 MG TAB GT SCH (09:25)
[2021-02-05] MEDS: MULTIVITAMIN/MINERALS 1 TAB GT SCH (09:25)
--- NOTE | 2021-02-05 09:25 | NUR ---
SCHEDULED MEDICATION GIVEN VIA G TUBE, RESIDUAL >190, HOLD FEEDING. PATIENT HAS YADIEL DRY COUGH. HOB ELEVATED. RIJ DRESSING INTACT. FORD CATHETER IN PLACE, WITH PINK URINE WITH SEDIMENT. WILL CONTINUE TO MONITOR.
[2021-02-05 09:26] LABS: LYMPHOCYTES % (MANUAL) 5 % (20-46); MONOCYTES % (MANUAL) 3 % (5-12)
--- NOTE | 2021-02-05 09:48 | NUR ---
INFORMED DR. PAPPAS THAT PATIENT'S RESIDUAL >190. G TUBE FEEDING HOLD.
[2021-02-05] MEDS: NACL 0.45% 1,000 ML IV SCH (11:45)
[2021-02-05 16:00] VITALS: BP 100/51
--- NOTE | 2021-02-05 16:30 | NUR ---
PATIENT'S RESIDUAL STILL > 120ML. G TUBE FEEDING BEING HOLD SINCE THIS MORNING. BS 126. NO COVERAGE NEEDED.
--- NOTE | 2021-02-05 19:25 | NUR ---
ENDORSED PATIENT TO CHIEF OF VITAL STATISTICS RN FOR CONTINUITY OF CARE. PATIENT IN STABLE CONDITION WITH 2L NC. G TUBE FEEDING STILL BEING HOLD.
--- NOTE | 2021-02-05 19:25 | NUR ---
RECEIVED PT FROM AM SHIFT ALERT, AWAKE BUT APHASIA WITH HOB ELEVATED AT 30 DEGREES, TUBE FEEDING HELD. NO ACUTE DISTRESS. HAD EPISODES OF PRODUCTIVE COUGH NOTED. WITH RIJ 3 LUMEN CATHETER ON 11/25 NS AT 70 MLS. CHECKED G-TUBE RESIDUAL AT 1999 WITH 60 MLS, RESUMED G-TUBE FEEDING AT 30 ML TOLERATING WELL AT THIS TIME. FORD CATHETER DRAINING TO A CLOUDY PINKISH DRAINAGE. WILL CONTINUE TO MONITOR.
[2021-02-05 20:00] VITALS: BP 142/74
--- NOTE | 2021-02-05 21:00 | NUR ---
DUE MEDS GIVEN. PATIENT RESTING COMFORTABLY IN BED. NO S/S ACUTE DISTRESS. SAFETY PRECAUTIONS IN PLACE. ISOLATION PRECAUTIONS OBSERVED BY ALL STAFF. CALL LIGHT WITHIN REACH.
[2021-02-05] MEDS: SIMVASTATIN 20 MG TAB GT SCH (21:02)
--- NOTE | 2021-02-05 23:00 | NUR ---
PATIENT TURNED AND REPOSITIONED FOR COMFORT AND TO MAINTAIN SKIN INTEGRITY. PATIENT RESTING COMFORTABLY IN BED. NO S/S ACUTE DISTRESS. SAFETY PRECAUTIONS IN PLACE. ISOLATION PRECAUTIONS OBSERVED BY ALL STAFF. CALL LIGHT WITHIN REACH.
[2021-02-06] VITALS: BP 144/85
--- NOTE | 2021-02-06 00:13 | NUR ---
INSERTED A NEW FORD CATHETER DUE TO LEAKING WITH 200 ML CLOUDY PINKISH URINE
[2021-02-06] MEDS: Z-GUARD PASTE TP SCH ×2 (00:16→13:03)
--- NOTE | 2021-02-06 01:00 | NUR ---
MADE ROUNDS. PATIENT RESTING COMFORTABLY IN BED. NO S/S ACUTE DISTRESS. SAFETY PRECAUTIONS IN PLACE. ISOLATION PRECAUTIONS OBSERVED BY ALL STAFF. CALL LIGHT WITHIN REACH.
[2021-02-06] MEDS: ALBUTEROL SULFATE/IPRATROPIU 3 ML SOL IH SCH ×4 (01:09→19:02)
--- NOTE | 2021-02-06 03:00 | NUR ---
RT SUCTIONED PATIENT WITH THIN WHITE SECRETIONS NOTED. SAFETY PRECAUTIONS IN PLACE. ISOLATION PRECAUTIONS OBSERVED BY ALL STAFF. CALL LIGHT WITHIN REACH.
[2021-02-06 04:00] VITALS: BP 125/68
--- NOTE | 2021-02-06 05:00 | NUR ---
INCONTINENT CARE RENDERED WITH MANAGER FUND AT BEDSIDE. NO S/S ACUTE DISTRESS. SAFETY PRECAUTIONS IN PLACE. ISOLATION PRECAUTIONS OBSERVED BY ALL STAFF. CALL LIGHT WITHIN REACH.
[2021-02-06 05:36] LABS: ANION GAP 16.6 (8-16); CARBON DIOXIDE 20.5 mmol/L (21-32); CREATININE 1.3 mg/dL (0.6-1.3); POTASSIUM 3.1 mmol/L (3.5-5.1); TOTAL BILIRUBIN 0.3 mg/dL (0.0-1.0)
[2021-02-06 06:24] LABS: BASOPHILS # (AUTO) 0.1 K/uL (0.00-0.22); BASOPHILS % (AUTO) 0.6 % (0.0-2.0); EOSINOPHILS # (AUTO) 0.1 K/uL (0-0.4); EOSINOPHILS % (AUTO) 1.1 % (0.0-4.0); HEMATOCRIT 22.8 % (36-48); HEMOGLOBIN 7.3 g/dL (12.0-16.0); LYMPHOCYTES # (AUTO) 0.5 K/uL (2.5-16.5); LYMPHOCYTES % (AUTO) 3.7 % (20.5-51.1); MEAN CORPUSCULAR HEMOGLOBIN 28 pg (27-31); MEAN CORPUSCULAR HGB CONC 32 g/dL (33-37); MONOCYTES # (AUTO) 0.4 K/uL (0.8-1.0); MONOCYTES % (AUTO) 3.1 % (1.7-9.3); NEUTROPHILS # (AUTO) 12.1 K/uL (1.8-7.7); NEUTROPHILS % (AUTO) 91.5 % (42.2-75.2); PLATELET COUNT (AUTO) 277 K/uL (140-450); RED BLOOD CELL COUNT(AUTO) 2.62 MIL/uL (4.20-5.40); WHITE BLOOD COUNT (AUTO) 13.3 K/uL (4.8-10.8)
[2021-02-06] MEDS: METOCLOPRAMIDE 10 MG/2 ML INJ VIAL IVP SCH ×4 (06:43→23:19)
[2021-02-06] MEDS: BLOOD GLUCOSE MONITORING 1 DEV DEV FS SCH ×4 (07:19→19:34)
--- NOTE | 2021-02-06 07:20 | NUR ---
PT REPORT RECEIVED FROM NIGHT RN. PT IS RESTING IN BED NO S/S OF DISTRESS. RIGHT IJ IS CLEAN DRY AND INTACT. ALL SAFETY MEASURES ARE IN PLACE FLACC SCORE (0). WILL CONTINUE TO MONITOR.
[2021-02-06 08:00] VITALS: BP 141/73
[2021-02-06] MEDS: MULTIVITAMIN/MINERALS 1 TAB GT SCH (08:47)
[2021-02-06] MEDS: ASCORBIC ACID 500 MG/5 ML ORASYR GT SCH (08:47)
--- NOTE | 2021-02-06 09:02 | NUR ---
ADMINISTERED SCHED MED PRESCRIBED PER MD ORDER. PT TOLERATED WELL. MEDICATION EDUCATION PERFORMED. PT APHASIC AND UNABLE TO VERBALIZE UNDERSTANDING. SAFETY MEASURES IN PLACE. WILL CONTINUE TO MONITOR
[2021-02-06] MEDS ORDERED: POTASSIUM CHLORIDE 20% 40 MEQ/15 ML UDC GT SCH (10:10)
--- NOTE | 2021-02-06 11:30 | NUR ---
BG ASSESSED PER ORDER. NO INSULIN COVERAGE NEEDED (138) PER MD ORDER. CALL LIGHT IS WITHIN REACH. ALL SAFETY MEASURES ARE IN PLACE. WILL CONTINUE TO MONITOR
[2021-02-06] MEDS ORDERED: POTASSIUM CHLORIDE 10 MEQ TABER PO SCH (11:31)
[2021-02-06 12:00] VITALS: BP 140/71
--- NOTE | 2021-02-06 14:15 | NUR ---
PT RESTING IN BED. FLACC 0. PT ON ROOM AIR AND TOLERATING WELL. NO SIGNS OF DISTRESS. WILL CONTINUE TO MONITOR
--- NOTE | 2021-02-06 14:24 | NUR ---
02/06/21 RD FOLLOW UP COMPLETED PLEASE REFER TO NUTRITION ASSESSMENT UNDER CARE ACTIVITY FOR ESTIMATED NUTRITIONAL NEEDS. 1. IF HIGH RESIDUALS CONTINUE, CONSIDER SWITCHING FORMULA TO GLUCERNA 1.2 @ 60 ML/HR. START AT 30 ML/HR, INCREASE BY 30 ML/HR Q6H 2. CURRENTLY ON VITAL AF 1.2 @ 60 ML/HR -THIS PROVIDES 1440 ML TOTAL VOLUME 1728 KCAL AND 108 GM OF PROTEIN , WHICH IS ADEQUATE TO MEET 100% OF ESTIMATED KCAL AND PROTEIN NEEDS. 3. CONTINUE WATER FLUSH OF 150 ML Q4H PER MD 4. RD WILL F/U 2-3 DAYS; HIGH RISK MARIS SMILEY RD
--- NOTE | 2021-02-06 15:40 | NUR ---
PT WENT OFF TO SURGERY. REPORT GIVEN AT BEDSIDE TO OR NURSES. SAFETY MEASURES IN PLACE. WILL CONTINUE TO MONITOR
[2021-02-06] MEDS ORDERED: methylPREDNISolone SS 40 MG/ML VIAL IVP SCH (15:52)
[2021-02-06] MEDS ORDERED: ONDANSETRON 4 MG/2 ML VIAL ONE ×2 (16:15)
[2021-02-06] MEDS ORDERED: PHENYLEPHRINE 10 MG/ML VIAL ONE (16:15)
[2021-02-06] MEDS ORDERED: GLYCOPYRROLATE 0.2 MG/ML VIAL ONE (16:15)
[2021-02-06] MEDS ORDERED: ETOMIDATE 20 MG/10 ML VIAL IVP ONE (16:15)
[2021-02-06] MEDS ORDERED: SUCCINYLCHOLINE CHLORIDE 200 MG/10 ML VIAL IVP ONE (16:15)
[2021-02-06] MEDS ORDERED: LIDOCAINE 2% 100 MG/5 ML SYR IVP ONE (16:15)
[2021-02-06] MEDS ORDERED: fentaNYL citrate 0.05 MG/ML VIAL ONE (16:15)
[2021-02-06] MEDS ORDERED: NEOSTIGMINE 1:1000 10 MG/10 ML VIAL ONE (16:15)
[2021-02-06] MEDS ORDERED: SEVOFLURANE 250 ML BTL INH ONE (16:15)
[2021-02-06] MEDS ORDERED: ROCURONIUM 50 MG/5 ML VIAL IV ONE (16:15)
[2021-02-06] MEDS: NACL 0.45% 1,000 ML IV SCH ×2 (16:21)
[2021-02-06] MEDS ORDERED: PIPERACILLIN/TAZOBACTAM 3.375 GM VIAL IV ONE (16:44)
[2021-02-06] MEDS ORDERED: MEPERIDINE 25 MG/ML SYR IVP PRN (16:55)
[2021-02-06] MEDS ORDERED: fentaNYL citrate 0.05 MG/ML VIAL IVP PRN (16:55)
[2021-02-06] MEDS: LACTATED RINGERS 1,000 ML IV SCH (16:55)
[2021-02-06] MEDS ORDERED: diphenhydrAMINE 50 MG/ML VIAL IVP PRN (16:55)
[2021-02-06] MEDS ORDERED: BLOOD GLUCOSE MONITORING 1 DEV DEV FS ONE (16:55)
[2021-02-06] MEDS ORDERED: ONDANSETRON 4 MG/2 ML VIAL IVP PRN (16:55)
--- NOTE | 2021-02-06 17:50 | NUR ---
PT RETURNED BACK FROM OR. REPORT GIVEN AT BEDSIDE. NO SIGNS OF DISTRESS NOTED. SAFETY MEASURES IN PLACE. WILL CONTINUE TO MONITOR
--- NOTE | 2021-02-06 19:22 | NUR ---
ENDORSED TO NIGHT NURSE FOR CONTINUITY OF CARE.
--- NOTE | 2021-02-06 19:23 | NUR ---
RECEIVED BEDSIDE REPORT FROM 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 PT IN BED HOB UP 45% RESPIRATIONS ARE EQUAL AND UNLABORED ON ROOM AIR SAT WELL 94%. SKIN IS WARM AND DRY TO TOUCH. SACRAL REDNESS. SHE HAS PLUS 3 PITTING EDEMA AND HAS HEEL PROTECTORS ON. SHE HAS RIJ TRIPLE LUMEN ONLY ONE LUMEN PATENT. INFUSING LR 120ML/H. PT ALSO HAS G TUBE INTACT FEEDING IS OFF PT BACK FROM OR. WILL F/U WITH MD ON TUBE FEEDING NEW RECOM FROM S D/T PT HIGH GASTRIC RESIDUALS. FORD CATH IN PLACE. SAFETY MEASURES ARE IN PLACE. Addendum: 02/06/21 at 2225 by Maia Sotomayor RN PATIENT WITH NO FORD IN PLACE.
--- NOTE | 2021-02-06 19:40 | NUR ---
PAGED DR KELLY FNS RECOMMENDS GLUCERNA AT 60ML/H AND SAME FWF 150ML/Q4H PER MD OK TO INPUT ORDER.
[2021-02-06 20:00] VITALS: BP 121/53
[2021-02-06] MEDS: SIMVASTATIN 20 MG TAB GT SCH (20:07)
--- NOTE | 2021-02-06 20:07 | NUR ---
VSS. BLOOD SUGAR 148 NO COVERAGE NEEDED. BHARGAVI MEDICATION GIVEN. PT WITH NO GASTRIC RESIDUALS NOTED. ABD IS SOFT. HOB ELEVATED. SAFETY MEASURES ARE IN PLACE. WILL CONTINUE TO MONITOR.
--- NOTE | 2021-02-06 22:12 | NUR ---
ROUNDS MADE. PT AWAKE RESTING IN BED. HOB ELEVATED. SAFETY MEASURES ARE IN PLACE.
[2021-02-07] VITALS: BP 147/77
--- NOTE | 2021-02-07 00:05 | NUR ---
VSS. TUBE FEEDING STARTED PER ORDERS. GLUCERNA 1.2 AT 30ML/H FWF 150/Q4H. WILL INCREASE RATE TO GOAL 60ML/H IN 6 H.
[2021-02-07] MEDS: Z-GUARD PASTE TP SCH ×2 (00:49→13:29)
[2021-02-07] MEDS: ALBUTEROL SULFATE/IPRATROPIU 3 ML SOL IH SCH ×4 (01:08→19:25)
[2021-02-07] MEDS: LACTATED RINGERS 1,000 ML IV SCH ×2 (01:15→09:30)
--- NOTE | 2021-02-07 02:15 | NUR ---
MADE ROUNDS. PATIENT APPEARS TO BE ASLEEP. CHEST RISE AND FALL NOTED. CALL LIGHT IS WITHIN REACH.
[2021-02-07 04:00] VITALS: BP 113/74
--- NOTE | 2021-02-07 04:00 | NUR ---
VITAL SIGNS ARE WITHIN NORMAL LIMITS. ALL SAFETY MEASURES ARE IN PLACE.
[2021-02-07] MEDS: METOCLOPRAMIDE 10 MG/2 ML INJ VIAL IVP SCH ×3 (05:05→18:00)
[2021-02-07] MEDS: NACL 0.45% 1,000 ML IV SCH (05:13)
[2021-02-07] MEDS: INSULIN LISPRO SLIDING SCALE 100 UNITS/ML VIAL SUBQ PRN ×2 (05:14→21:29)
[2021-02-07] MEDS: BLOOD GLUCOSE MONITORING 1 DEV DEV FS SCH ×4 (05:14→21:29)
--- NOTE | 2021-02-07 05:40 | NUR ---
BLADDER SCAN REVEALED 529ML BLADDER IS SLIGHTLY DISTENDED. NO VOID DURING SHIFT. PAGED NODULIZER DR ART. WAITING FOR PAGE BACK.
[2021-02-07 06:02] LABS: CARBON DIOXIDE 18.2 mmol/L (21-32); CREATININE 1.4 mg/dL (0.6-1.3); POTASSIUM 4.2 mmol/L (3.5-5.1); TOTAL BILIRUBIN 0.3 mg/dL (0.0-1.0)
--- NOTE | 2021-02-07 06:15 | NUR ---
STRAIGHT CATH USING STERILE TECHNIQUE WITH HELP OF SPECIAL EFFECTS SPECIALIST. EMPTIED 450CC OF CLEAR YELLOW URINE. PER F/U WITH UROLOGIST IN AM.
[2021-02-07 06:34] LABS: MEAN CORPUSCULAR HEMOGLOBIN 27 pg (27-31); RED CELL DISTRIBUTION WIDTH 16.8 % (11.6-13.7)
[2021-02-07 06:45] LABS: HEMATOCRIT 23.1 % (36-48); HEMOGLOBIN 7.1 g/dL (12.0-16.0); MEAN CORPUSCULAR HGB CONC 31 g/dL (33-37); MEAN CORPUSCULAR VOLUME 87.7 fL (80-94); PLATELET COUNT (AUTO) 316 K/uL (140-450); RED BLOOD CELL COUNT(AUTO) 2.63 MIL/uL (4.20-5.40); WHITE BLOOD COUNT (AUTO) 21.1 K/uL (4.8-10.8)
--- NOTE | 2021-02-07 07:26 | NUR ---
PAGED DR. ROSE REGARDING URINARY RETENTION. WAITING FOR CALL BACK.
--- NOTE | 2021-02-07 07:30 | NUR ---
NEW ORDER FOR INSERTION OF FORD CATH AND PER DR. ROSE STANFORD FOR PT TO BE D/C WITH FORD IN PLACE. GAVE BEDSIDE REPORT TO DAY RN AND ENDORSED NEW ORDER.
--- NOTE | 2021-02-07 07:35 | NUR ---
RECEIVED REPORT FROM NIGHTSHIFT NURSE. PT RESTING IN BED. FLACC 0. RESPIRATIONS EVEN AND UNLABORED WITH NO SOB OR RESPIRATORY DISTRESS RIJ TRIPLE LUMEN IS CLEAN, DRY, AND INTACT. SAFETY MEASURES IN PLACE. WILL CONTINUE TO MONITOR
[2021-02-07 08:00] VITALS: BP 123/60
[2021-02-07 08:06] LABS: MONOCYTES % (MANUAL) 2 % (5-12)
[2021-02-07 08:07] LABS: LYMPHOCYTES % (MANUAL) 3 % (20-46)
[2021-02-07] MEDS: MULTIVITAMIN/MINERALS 1 TAB GT SCH (09:33)
[2021-02-07] MEDS: ASCORBIC ACID 500 MG/5 ML ORASYR GT SCH (09:34)
--- NOTE | 2021-02-07 10:00 | NUR ---
INSERTED NEW FORD PRESCRIBED PER MD ORDER. PT TOLERATED WELL. FORD IN DRAINING CLOUDY YELLOW URINE. SAFETY MEASURES IN PLACE. WILL CONTINUE TO MONITOR
[2021-02-07 11:16] LABS: BASOPHILS % (AUTO) 0.2 % (0.0-2.0); EOSINOPHILS % (AUTO) 0.2 % (0.0-4.0); HEMATOCRIT 21.3 % (36-48); LYMPHOCYTES # (AUTO) 0.6 K/uL (2.5-16.5); LYMPHOCYTES % (AUTO) 4.1 % (20.5-51.1); MEAN CORPUSCULAR HEMOGLOBIN 28 pg (27-31); MEAN CORPUSCULAR HGB CONC 32 g/dL (33-37); MONOCYTES # (AUTO) 0.7 K/uL (0.8-1.0); MONOCYTES % (AUTO) 4.4 % (1.7-9.3); NEUTROPHILS # (AUTO) 13.8 K/uL (1.8-7.7); NEUTROPHILS % (AUTO) 91.1 % (42.2-75.2); PLATELET COUNT (AUTO) 301 K/uL (140-450); RED BLOOD CELL COUNT(AUTO) 2.44 MIL/uL (4.20-5.40); WHITE BLOOD COUNT (AUTO) 15.1 K/uL (4.8-10.8)
--- NOTE | 2021-02-07 11:30 | NUR ---
PT BLOOD SUGAR IS 89. NO COVERAGE NEEDED AT THIS TIME. PT STILL HAS 200ML OF BROWN RESIDUAL DESPITE HOLDING FEEDS. LAB CALLED AND SAID HGB IS 6.7. DR. PAPPAS MADE AWARE. ORDERS RECEIVED. WILL CONTINUE TO MONITOR
[2021-02-07 11:34] LABS: HEMOGLOBIN 6.7 g/dL (12.0-16.0)
[2021-02-07 12:00] VITALS: BP 124/64
[2021-02-07] MEDS ORDERED: AZITHROMYCIN 250 MG TAB GT SCH (12:00)
[2021-02-07] MEDS: bisacodyL 10 MG SUPP RC PRN (12:28)
[2021-02-07] MEDS: MORPHINE SULFATE 2 MG/ML SYR IVP PRN (12:42)
--- NOTE | 2021-02-07 12:42 | NUR ---
PT RESTLESS AND GROANING IN PAIN. PRN MORPHINE ADMINISTERED PRESCRIBED PER MD ORDER. PT TOLERATED WELL. SAFETY MEASURES IN PLACE. WILL CONTINUE TO MONITOR
--- NOTE | 2021-02-07 14:15 | NUR ---
PT RESTING IN BED. FLACC 0. RESPIRATIONS EVEN AND UNLABORED WITH NO SOB OR RESPIRATORY DISTRESS. SAFETY MEASURES IN PLACE. WILL CONTINUE TO MONITOR
--- NOTE | 2021-02-07 15:30 | NUR ---
PRIOR TO BLOOD TRANSFUSION, VERIFIED BLOOD WITH MARKET DEVELOPMENT SPECIALIST. PRETRANSFUSION VITAL SIGNS OBTAINED. VERIFIED BLOOD WITH SECOND NURSE PRIOR TO TRANSFUSION. PT TOLERATING WELL. WILL CONTINUE TO MONITOR
[2021-02-07 16:00] VITALS: BP 124/64
[2021-02-07] MEDS ORDERED: LACTULOSE 20 GM/30 ML UDC GT SCH (17:50)
--- NOTE | 2021-02-07 18:15 | NUR ---
PT COMPLETED FIRST UNIT OF BLOOD. NO SIGNS OF DISTRESS NOTED. SAFETY MEASURES IN PLACE. WILL CONTINUE TO MONITOR
--- NOTE | 2021-02-07 19:10 | NUR ---
PRIOR TO BLOOD TRANSFUSION, VERIFIED BLOOD WITH BULK PLANT MANAGER. OBTAINED VITALS PRIOR TO TRANSFUSION. VERIFIED BLOOD WITH SECOND NURSE. PT TOLERATED FIRST UNIT OF BLOOD WELL. SAFETY MEASURES IN PLACE. WILL ENDORSE TO NIGHTSHIFT
--- NOTE | 2021-02-07 19:15 | NUR ---
ENDORSED AT BEDSIDE TO NIGHTSHIFT FOR CONTINUITY OF CARE. PT IS STABLE
--- NOTE | 2021-02-07 19:15 | NUR ---
RECEIVING PATIENT FROM AM NURSE FOR CONTINUITY OF CARE. PATIENT IS ON TELE MONITOR. PATIENT IS AWAKE, AND APHASIC. RESPIRATORY EVEN AND UNLABORED, ON ROOM AIR, O2 SAT 97%. NO SIGN OF DISTRESS NOTED. FORD IN PLACE. CENTRAL LINE NOTED ON RIGHT IJ, PRBC TRANSFUSION. G-TUBE IN PLACE, FEEDING WAS HOLD DUE TO HIGH RESIDUAL. SKIN WARM, DRY, NON-DIAPHORETIC, REDNESS NOTED ON SACRAL. PRECAUTION IN PLACE. CALL LIGHT WITHIN REACH. WILL CONTINUE TO MONITOR.
[2021-02-07 20:00] VITALS: BP 137/63
--- NOTE | 2021-02-07 20:30 | NUR ---
BLOOD SUGAR CHECK 155, 2 UNITS INSULIN WAS GIVEN. RECHECK RESIDUAL 60ML, START FEEDING 30ML/HR. SCHEDULE MEDICATION HOLD UNTIL BLOOD TRANSFUSION COMPLETE. WILL CONTINUE TO MONITOR.
--- NOTE | 2021-02-07 21:50 | NUR ---
BLOOD TRANSFUSION COMPLETED. NO S/S OF ADVERSE REACTION NOTED. VITAL SIGNS STABLE BP 153/66, HR 97, RR18, TEMP 97.4. WILL CONTINUE TO MONITOR.
[2021-02-07] MEDS ORDERED: PIPERACILLIN/TAZOBACTAM 3.375 GM VIAL IV ONE (21:52)
[2021-02-07] MEDS: SIMVASTATIN 20 MG TAB GT SCH (22:09)
[2021-02-07] MEDS: ERYTHROMYCIN ETHYLSUCCINATE SUSP 200 MG/5 ML UDC GT SCH (22:10)
[2021-02-07] MEDS: PIPERACILLIN/TAZOBACTAM 3.375 GM in DEXTROSE 5% 50 ML IV SCH (22:10)
[2021-02-08] VITALS: BP 148/62
--- NOTE | 2021-02-08 | NUR ---
VITAL SIGNS ARE WITHIN NORMAL LIMITS. ALL SAFETY MEASURES ARE IN PLACE. HOB ELEVATED. WILL CONTINUE TO MONITOR.
[2021-02-08] MEDS: METOCLOPRAMIDE 10 MG/2 ML INJ VIAL IVP SCH ×3 (00:04→12:03)
[2021-02-08 00:39] LABS: HEMATOCRIT 31.2 % (36-48); HEMOGLOBIN 10.4 g/dL (12.0-16.0)
[2021-02-08 00:39] LABS: APPEARANCE,URINE CLOUDY (CLEAR); BILIRUBIN,URINE NEGATIVE (NEGATIVE); BLOOD, URINE 2+ (NEGATIVE); COLOR,URINE YELLOW (YELLOW); LEUKOCYTE ESTERASE ,URINE 2+ (NEGATIVE); NITRITE, URINE NEGATIVE (NEGATIVE); PH,URINE 5.5 (5.0-9.0); UGLUCOSE NEGATIVE (NEGATIVE)
[2021-02-08 00:49] LABS: YEAST,URINE Many /HPF (None Seen)
[2021-02-08] MEDS: ALBUTEROL SULFATE/IPRATROPIU 3 ML SOL IH SCH ×2 (01:41→07:30)
[2021-02-08] MEDS: Z-GUARD PASTE TP SCH ×2 (02:29→12:03)
--- NOTE | 2021-02-08 02:31 | NUR ---
NEW TUBE FEEDING STARTED PT WITH 50CC OF GASTRIC RESIDUALS WILL CONTINUE TO MONITOR. IF PT CONTINUES TO TOLERATED FEEDING WILL INCREASE RATE PER ORDERS. HOB ELEVATED. SAFETY MEASURES ARE IN PLACE.
[2021-02-08 04:00] VITALS: BP 161/70
--- NOTE | 2021-02-08 04:30 | NUR ---
ROUNDS MADE. PT AWAKE RESTING IN BED. HOB ELEVATED. SAFETY MEASURES ARE IN PLACE.
--- NOTE | 2021-02-08 05:06 | NUR ---
PATIENT WITH 60CC OF GASTRIC RESIDUALS. FEEDING RATE INCREASED PER ORDERS TO GOAL RATE 60ML/H FWF 150ML/Q4H. HOB ELEVATED WILL CONTINUE TO MONITOR.
[2021-02-08] MEDS ORDERED: PIPERACILLIN/TAZOBACTAM 3.375 GM VIAL IV ONE (05:13)
[2021-02-08] MEDS: PIPERACILLIN/TAZOBACTAM 3.375 GM in DEXTROSE 5% 50 ML IV SCH ×2 (05:19→12:03)
[2021-02-08 05:39] LABS: BASOPHILS % (AUTO) 0.4 % (0.0-2.0); EOSINOPHILS # (AUTO) 0.2 K/uL (0-0.4); EOSINOPHILS % (AUTO) 1.5 % (0.0-4.0); HEMATOCRIT 31.4 % (36-48); HEMOGLOBIN 10.3 g/dL (12.0-16.0); LYMPHOCYTES # (AUTO) 0.5 K/uL (2.5-16.5); LYMPHOCYTES % (AUTO) 4.9 % (20.5-51.1); MEAN CORPUSCULAR HEMOGLOBIN 29 pg (27-31); MEAN CORPUSCULAR HGB CONC 33 g/dL (33-37); MEAN CORPUSCULAR VOLUME 88.4 fL (80-94); MONOCYTES # (AUTO) 0.5 K/uL (0.8-1.0); MONOCYTES % (AUTO) 4.8 % (1.7-9.3); NEUTROPHILS # (AUTO) 9.8 K/uL (1.8-7.7); NEUTROPHILS % (AUTO) 88.4 % (42.2-75.2); PLATELET COUNT (AUTO) 289 K/uL (140-450); RED BLOOD CELL COUNT(AUTO) 3.55 MIL/uL (4.20-5.40); RED CELL DISTRIBUTION WIDTH 16.6 % (11.6-13.7)
[2021-02-08] MEDS: MORPHINE SULFATE 2 MG/ML SYR IVP PRN (06:06)
--- NOTE | 2021-02-08 06:06 | NUR ---
PATIENT IS GRIMING, FLACC 7. MORPHINE PRN GIVEN ORDERED. WILL CONTINUE TO MONITOR.
[2021-02-08] MEDS: BLOOD GLUCOSE MONITORING 1 DEV DEV FS SCH ×2 (06:37→12:02)
[2021-02-08] MEDS: INSULIN LISPRO SLIDING SCALE 100 UNITS/ML VIAL SUBQ PRN (06:38)
--- NOTE | 2021-02-08 07:05 | NUR ---
ENDORSED PATIENT TO DAY SHIFT FOR CONTINUITY OF CARE. PATIENT IS STABLE. NO SIGN OF DISTRESS NOTED.
--- NOTE | 2021-02-08 07:38 | NUR ---
RECEIVED PT ALERT, EYES OPEN. WITHDRAWS TO PAIN STIMULI. PT IS NON-VERBAL. PT ON ROOM AIR. NO S/S SOB. AFEBRILE. ST ON TELE MONITOR. ON GT FEEDING AT 30 ML/HR. NO SIGN OF ABDOMINAL DISTENTION. KEPT HOB ELEVATED. ON FORD CATH DRAINING CLEAR YELLOW URINE. RIGHT IJ CENTRAL LINE DRESSING INTACT AND CLEAN WITH IVF 1/2 NS AT KVO. REPORT RECEIVED FROM CORE RESCUER RN. POC DISCUSSED.
[2021-02-08 08:00] VITALS: BP 169/74
[2021-02-08 09:40] LABS: ANION GAP 21.3 (8-16); CARBON DIOXIDE 17.3 mmol/L (21-32); CREATININE 1.5 mg/dL (0.6-1.3); POTASSIUM 3.6 mmol/L (3.5-5.1)
[2021-02-08] MEDS: MULTIVITAMIN/MINERALS 1 TAB GT SCH (09:40)
[2021-02-08] MEDS: ERYTHROMYCIN ETHYLSUCCINATE SUSP 200 MG/5 ML UDC GT SCH (09:40)
[2021-02-08] MEDS: ASCORBIC ACID 500 MG/5 ML ORASYR GT SCH (09:40)
--- NOTE | 2021-02-08 09:50 | NUR ---
SEEN AND EXAMINED BY DR. PAPPAS. PLAN PT TO TRANSFER. ZERO RESIDUAL ON TUBE FEEDING. INCREASED RATE FROM 30 TO 40 ML/HR. WILL CONTINUE TO MONITOR.
[2021-02-08] MEDS ORDERED: PIPE1SOL IV (10:03)
[2021-02-08] MEDS ORDERED: ERYT200P5 GT (10:03)
[2021-02-08] MEDS ORDERED: METO-486 GT (10:03)
[2021-02-08 10:31] VITALS: BP 169/74
--- NOTE | 2021-02-08 11:20 | NUR ---
NOTIFIED RT SUKHDEEP PT'S O2 SATURATION 88%. COUGHING NOTED. NO SIGNS OF CYANOSIS. WILL CONTINUE TO MONITOR.
--- NOTE | 2021-02-08 11:35 | NUR ---
ORAL SUCTIONING AND CARE GIVEN. OBTAINED THICK YELLOW SECRETIONS. PT'S O2 SAT 98%. HOB KEPT ELEVATED.
[2021-02-08] MEDS ORDERED: NACL 0.45% 1,000 ML IV SCH (11:50)
[2021-02-08 12:00] VITALS: BP 165/74
--- NOTE | 2021-02-08 13:05 | NUR ---
REPORT GIVEN TO SHERRIE MCNEAL. PT WILL BE ON ROOM 104 B. POC DISCUSSED.
--- NOTE | 2021-02-08 14:20 | NUR ---
PT DISCHARGED TO [facility]. DC PACKET GIVEN TO AMBULANCE PERSONNEL. NO S/S OF DISTRESS OR DISCOMFORT. FEEDING TUBE SECURED. RIGHT CENTRAL LINE INTACT. FORD CATH IN PLACE. PT IS STABLE.
== END 2021-02-08 14:25 | DRG 853 ==
LOC: MED 08:32 → MIC 12:05 → MTU 01-29 23:45
PROVIDERS: ADMIT Internal Medicine; ATTEND Internal Medicine
PROC: 02H633Z Insertion of Infusion Device into Right Atrium, Percutaneous Approach (ICD-10-PCS; 2021-01-19)
PROC: B548ZZA Ultrasonography of Superior Vena Cava, Guidance (ICD-10-PCS; 2021-01-19)
PROC: 5A09357 Assistance with Respiratory Ventilation, Less than 24 Consecutive Hours, Continuous Positive Airway Pressure (ICD-10-PCS; 2021-01-21)
PROC: 0BH17EZ Insertion of Endotracheal Airway into Trachea, Via Natural or Artificial Opening (ICD-10-PCS; principal; 2021-01-22)
PROC: 5A1945Z Respiratory Ventilation, 24-96 Consecutive Hours (ICD-10-PCS; 2021-01-22)
PROC: 0T788DZ Dilation of Bilateral Ureters with Intraluminal Device, Via Natural or Artificial Opening Endoscopic (ICD-10-PCS; 2021-01-23)
PROC: BT141ZZ Fluoroscopy of Kidneys, Ureters and Bladder using Low Osmolar Contrast (ICD-10-PCS; 2021-01-23)
PROC: 5A1955Z Respiratory Ventilation, Greater than 96 Consecutive Hours (ICD-10-PCS; 2021-01-24)
PROC: 5A09357 Assistance with Respiratory Ventilation, Less than 24 Consecutive Hours, Continuous Positive Airway Pressure (ICD-10-PCS; 2021-01-24)
PROC: 0TC78ZZ Extirpation of Matter from Left Ureter, Via Natural or Artificial Opening Endoscopic (ICD-10-PCS; 2021-02-06)
PROC: 0TP98DZ Removal of Intraluminal Device from Ureter, Via Natural or Artificial Opening Endoscopic (ICD-10-PCS; 2021-02-06)
PROC: 30233N1 Transfusion of Nonautologous Red Blood Cells into Peripheral Vein, Percutaneous Approach (ICD-10-PCS; 2021-02-07)
DX: A41.59 Other Gram-negative sepsis (principal); R65.21 Severe sepsis with septic shock; J18.9 Pneumonia, unspecified organism; J96.01 Acute respiratory failure with hypoxia; R53.2 Functional quadriplegia; E87.1 Hypo-osmolality and hyponatremia; G91.2 (Idiopathic) normal pressure hydrocephalus; Z99.11 Dependence on respirator [ventilator] status; N13.6 Pyonephrosis; N17.9 Acute kidney failure, unspecified; E87.0 Hyperosmolality and hypernatremia; D64.9 Anemia, unspecified; D69.6 Thrombocytopenia, unspecified; E87.6 Hypokalemia; E11.22 Type 2 diabetes mellitus with diabetic chronic kidney disease; E11.65 Type 2 diabetes mellitus with hyperglycemia; E55.9 Vitamin D deficiency, unspecified; E78.5 Hyperlipidemia, unspecified; B96.5 Pseudomonas (aeruginosa) (mallei) (pseudomallei) as the cause of diseases classified elsewhere; E88.09 Other disorders of plasma-protein metabolism, not elsewhere classified; F79 Unspecified intellectual disabilities; Z20.822 Contact with and (suspected) exposure to COVID-19; Y95 Nosocomial condition; I12.9 Hypertensive chronic kidney disease with stage 1 through stage 4 chronic kidney disease, or unspecified chronic kidney disease; M85.80 Other specified disorders of bone density and structure, unspecified site; N18.9 Chronic kidney disease, unspecified; R74.01 Elevation of levels of liver transaminase levels; R13.10 Dysphagia, unspecified; G80.9 Cerebral palsy, unspecified; Z93.1 Gastrostomy status; Z90.710 Acquired absence of both cervix and uterus; Z74.01 Bed confinement status; Z79.899 Other long term (current) drug therapy
CPT/HCPCS: 36415; 36600; 70450; 71045; 74018; 76770; 80048; 80053; 80202; 81001; 82272; 82306; 82330; 82550; 82553; 82803; 82948; 83605; 83735; 83874; 83880; 84100; 84300; 84484; 85018; 85025; 85610; 85651; 85730; 86140; 86886; 86900; 86901; 86920; 87040; 87070; 87081; 87086; 87205; 93005; 94003; 94640; 94660; 96365; 96366; 96367; 96368; 99291; C1758; C1769; C2617; J0330; J0456; J0696; J1940; J2001; J2060; J2250; J2270; J2370; J2405; J2543; J2704; J2710; J2765; J2920; J3010; J3370; J3480; J3490; J7030; J7042; J7060; J7613; J7644; P9016; Q9967; U0003